=== PATIENT | male | born 1955 | race Caucasian/White ===

== ENCOUNTER 2019-10-24 20:00 | Outpatient (CLI) | payer OTHER, SELFPAY | END 2019-10-24 20:01 | disposition home or self-care (01) | LOC: SLEEP 10-25 09:30 | PROVIDERS: Family Provider Family Medicine; PCP Family Medicine; Visit Provider Psychiatry & Neurology Psychiatry | DX: G47.33 Obstructive sleep apnea (adult) (pediatric) (principal) | CPT/HCPCS: 95810; 95811 ==

== ENCOUNTER 2020-04-13 09:40 | Emergency (ER) | payer OTHER, SELFPAY ==
[2020-04-13 10:06] VITALS: BP 127/66; PULSE 56; RESP 20; TEMP 36.7; O2SAT 94; BMI 38.4
--- NOTE | 2020-04-13 10:09 | PC.NURSE ---
Patient provided with urine cup at this time. Educated on how to properly collected clean catch urine.
[2020-04-13 10:52] VITALS: BP 136/84; PULSE 58; RESP 18; O2SAT 95
[2020-04-13 10:53] LABS: Add Urine Microscopic? NO
[2020-04-13 10:56] LABS: Bilirubin Urine Neg (NEGATIVE); Blood Urine Neg (Negative); Glucose Urine UA Norm (Normal); Ketones Urine Negative (Negative); Leukocyte Esterase Urine Negative (Negative); Nitrate Urine Negative (Negative); Protein Urine Neg (Negative); Specific Gravity, Urine 1.005 (1.005-1.030); Urine Appearance Clear (CLEAR); Urine Color Yellow (Yellow); Urobilinogen Urine Norm (Negative); pH Urine 7 (5-7)
[2020-04-13 11:17] LABS: Basophils # 0.1 10^3/uL (0.0-0.1); Basophils % 1.1 %; Eosinophils # 0.7 10^3/uL (0.0-0.8); Eosinophils % 7.5 %; Hematocrit 45.4 % (42.0-52.0); Hemoglobin 14.7 g/dL (11.7-16.6); Lymphocytes # 2.1 10^3/uL (0.8-4.8); Lymphocytes % 22.9 %; Mean Corpuscular HGB Conc 32.4 g/dL (30.0-36.0); Mean Corpuscular Hemoglobin 29.5 pg (28.0-34.0); Mean Corpuscular Volume 91.2 fL (80-94); Mean Platelet Volume 9.9 fL (7.4-10.4); Monocytes # 0.8 10^3/uL (0.2-0.9); Monocytes % 8.7 %; Neutrophils # 5.55 10^3/uL (1.8-7.7); Neutrophils % 59.4 %; Nucleated Red Blood Cells % 0 %; Platelet Count 323 10^3/cmm (130-400); Red Blood Count 4.98 10^6/uL (4.1-5.3); Red Cell Distribution Width 13.2 % (12.1-15.1); White Blood Count 9.3 10^3/uL (4.0-10.0)
[2020-04-13 11:29] LABS: Alanine Aminotransferase 17 U/L (0-41); Albumin Level 4.1 g/dL (3.5-5.2); Alkaline Phosphatase 103 IU/L (40-130); Anion Gap 12.7 (5-19); Aspartate Amino Transferase 14 U/L (0-40); Blood Urea Nitrogen 13 mg/dL (8-23); Calcium 9.9 mg/dL (8.5-10.5); Carbon Dioxide 29 mmol/L (22-29); Chloride 98 mmol/L (98-107); Creatinine Clr Calc Pharmacy 136.8791; Globulin 3.6 g/dL (1.3-4.6); Glomerular Filtration Rate 113.9 mL/min (90-130); Glucose 86 mg/dL (65-115); Osmolality Calculated 275 mOsm/kg (285-295); Potassium 4.7 mmol/L (3.5-5.1); Sodium 135 mmol/L (136-145); Total Bilirubin 0.2 mg/dL (0.15-1.2); Total Protein 7.7 g/dL (6.6-8.7)
--- NOTE | 2020-04-13 11:53 | W.ED.MALEGU ---
HPI - Male Genitourinary General: Chief complaint: Urogenital-Male Stated complaint: groin pain Time Seen by Provider: 04/13/20 11:43 History of Present Illness: HPI Narrative: Patient complains about testicular pain for the last 10 days intermittent has some polyuria denies any unprotected sex are other symptoms no fever chills burning. Complaint: testicle pain Onset (ago): day(s) Duration: intermittent Location: right testicle and left testicle Severity: mild Quality: aching Relieving factors: none Exacerbating factors: none Associated symptoms: Reports no associated symptoms; Deny nausea or vomiting Review of Systems Const: Denies: fever(s), chills or body aches Eyes: Denies: change in vision or blurry vision ENMT: Denies: throat pain or nasal congestion Card: Denies: chest pain or dyspnea on exertion Resp: Denies: dyspnea, productive cough or non-productive cough GI: Denies: abdominal pain, nausea or vomiting : Reports: testicular pain; Denies: difficulty urinating Musc: Denies: extremity pain Skin/Breast: Denies: rash Neuro: Denies: headache(s) Psych: Denies: anxiety or depression Mark/Lymph: Denies: easy bruising PFSH ED PFSH: Medical History Atherosclerotic heart disease Congestive heart failure Diabetes type 2, controlled KANG (dyspnea on exertion) Dyslipidemia (high LDL; low HDL) Hypertension Smoking addiction 5 PPD for 35 years staarted cutting back 1 year ago- now 1PPD Surgical History H/O heart artery stent History of cholecystectomy Family History Other CAD (coronary artery disease) Diabetes Family history of premature coronary artery disease Hyperlipidemia Hypertension Social History Smoking and tobacco status: current every day smoker cigarettes Packs smoked per day: 1 Alcohol intake: never Physical Exam Const: COMMON NORMALS: no acute distress, average body habitus and patient oriented x3 HENMT: COMMON NORMALS: normocephalic HEAD & SCALP: normal to inspection and normocephalic FACE & SINUS: normal facial exam Eye: COMMON NORMALS: conjunctivae normal GENERAL EYE: appearance normal, both eyes and all related structures CONJUNCTIVA: Yes conjunctivae normal Neck/C-Spine: COMMON NORMALS: no JVD Chest: COMMONS NORMALS: normal inspection of the chest Resp: COMMON NORMALS: normal respiratory effort and clear to auscultation bilaterally AUSCULTATION: clear to auscultation bilaterally Cardio: COMMON NORMALS: no JVD, regular rate and regular rhythm RATE: regular rate RHYTHM: regular rhythm GI: COMMON NORMALS: Normal to inspection, nondistended, normoactive bowel sounds present : COMMON NORMALS: Yes no CVA tenderness BLADDER/KIDNEY EXAM: Yes no CVA tenderness PENIS: normal penis SCROTUM: Yes testes descended bilaterally, Yes Scrotal tenderness present (Bilateral), No erythematous and No scrotal swelling TESTES: Yes testicular lie normal Back/Pelvis: COMMON NORMALS: no CVA tenderness Extremity: COMMON NORMALS: normal to inspection and full ROM Neuro: COMMON NORMALS: patient oriented x3 Course Vital Signs: Vital signs: Vital Signs Temperature 98.1 F 04/13/20 10:06 Pulse Rate 58 L 04/13/20 10:52 Respiratory Rate 18 04/13/20 10:52 Blood Pressure 136/84 04/13/20 10:52 Pulse Oximetry 95 04/13/20 10:52 MDM - Male Lab Data: Labs: Lab Results 04/13/20 04/13/20 04/13/20 Range/Units 10:36 10:55 10:55 WBC 9.3 (4.0-10.0) 10^3/ uL RBC 4.98 (4.1-5.3) 10^6/u L Hgb 14.7 (11.7-16.6) g/dL Hct 45.4 (42.0-52.0) % MCV 91.2 (80-94) fL MCH 29.5 (28.0-34.0) pg MCHC 32.4 (30.0-36.0) g/dL RDW 13.2 (12.1-15.1) % Plt Count 323 (130-400) 10^3/c mm MPV 9.9 (7.4-10.4) fL Neut % (Auto) 59.4 % Lymph % (Auto) 22.9 % Dewitt % (Auto) 8.7 % Eos % (Auto) 7.5 % Baso % (Auto) 1.1 % Neut # (Auto) 5.55 (1.8-7.7) 10^3/u L Lymph # (Auto) 2.1 (0.8-4.8) 10^3/u L Dewitt # (Auto) 0.8 (0.2-0.9) 10^3/u L Eos # (Auto) 0.7 (0.0-0.8) 10^3/u L Baso # (Auto) 0.1 (0.0-0.1) 10^3/u L Nucleated RBC % (a uto) 0 % Nucleated RBCs # 0.0 /100WBC Sodium 135 L (136-145) mmol/L Potassium 4.7 (3.5-5.1) mmol/L Chloride 98 (98-107) mmol/L Carbon Dioxide 29 (22-29) mmol/L Anion Gap 12.7 (5-19) BUN 13 (8-23) mg/dL Creatinine 0.7 (0.7-1.2) mg/dL GFR Calculation 113.9 (90-130) mL/min Glucose 86 (65-115) mg/dL Calculated Osmolal ity 275 L (285-295) mOsm/k g Calcium 9.9 (8.5-10.5) mg/dL Total Bilirubin 0.2 (0.15-1.2) mg/dL AST 14 (0-40) U/L ALT 17 (0-41) U/L Alkaline Phosphata se 103 (40-130) IU/L Total Protein 7.7 (6.6-8.7) g/dL Albumin 4.1 (3.5-5.2) g/dL Globulin 3.6 (1.3-4.6) g/dL Urine Color Yellow (Yellow) Urine Appearance Clear (CLEAR) Urine pH 7 (5-7) Ur Specific Gravit y 1.005 (1.005-1.030) Urine Protein Neg (Negative) Urine Glucose (UA) Norm (Normal) Urine Ketones Negative (Negative) Urine Blood Neg (Negative) Urine Nitrate Negative (Negative) Urine Bilirubin Neg (NEGATIVE) Urine Urobilinogen Norm (Negative) mg/dL Ur Leukocyte Britta ase Negative (Negative) Discharge Plan Discharge Patient Disposition: Home Clinical Impression: Acute epididymitis Condition: Stable Prescriptions: New levofloxacin 750 mg tablet 750 mg PO DAILY 7 Days Qty: 7 RF: 0 tramadol 50 mg tablet 50 mg PO TID PRN (Reason: pain) Qty: 10 RF: 0 No Action hydroxyzine HCl 10 mg tablet 10 mg PO TID PRNRF: 0 modafinil 200 mg tablet 200 mg PO QAM RF: 0 amlodipine 10 mg tablet 10 mg PO QDAY RF: 0 glipizide 5 mg tablet 5 mg PO BID RF: 0 hydrocodone-acetaminophen 10-325 mg tablet 1 tab PO Q4H PRNRF: 0 citalopram 20 mg tablet 20 mg PO QDAY RF: 0 hydrochlorothiazide 25 mg tablet 25 mg PO QAM RF: 0 hydralazine 10 mg tablet 10 mg PO BID RF: 0 isosorbide mononitrate 60 mg tablet extended release 24 hr 60 mg PO QAM RF: 0 metoprolol succinate 100 mg tablet extended release 24 hr 100 mg PO BID RF: 0 metformin 1,000 mg tablet 1,000 mg PO BID RF: 0 prasugrel 10 mg tablet 10 mg PO DAILY 30 Days Qty: 30 RF: 5 ezetimibe 10 mg tablet 10 mg PO DAILY 30 Days Qty: 30 RF: 5 losartan 50 mg tablet 50 mg PO DAILY 30 Days Qty: 90 RF: 5 Referrals: Salbador Mon [Primary Care Provider] - Discharge Diet: Usual diet Discharge Activity: Resume usual activity Patient Instructions: Epididymitis (ED) Activity Restrictions/Additional Instructions: Follow-up with medical provider as directed. Take medications as prescribed. Return to the ER or your medical provider if condition worsens. Please read and understand discharge instructions. If any questions ask please. 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
[2020-04-13 12:16] VITALS: BP 143/75; PULSE 53; RESP 20; O2SAT 94
== END 2020-04-13 12:16 | disposition home or self-care (01) ==
PROVIDERS: Emergency Provider Nurse Practitioner Family; PCP Family Medicine
DX: N45.1 Epididymitis (principal); Z79.84 Long term (current) use of oral hypoglycemic drugs; I11.0 Hypertensive heart disease with heart failure; I50.9 Heart failure, unspecified; E11.9 Type 2 diabetes mellitus without complications; E78.5 Hyperlipidemia, unspecified; F17.210 Nicotine dependence, cigarettes, uncomplicated
CPT/HCPCS: 12345; 36415; 80053; 81003; 85025; 99282

== ENCOUNTER → 2020-06-26 08:15 | Outpatient (BNVA) | payer OTHER, SELFPAY | PROVIDERS: PCP Family Medicine; Visit Provider Internal Medicine Cardiovascular Disease | DX: E78.5 Hyperlipidemia, unspecified (principal) | CPT/HCPCS: 80061 ==

== ENCOUNTER 2020-12-31 07:56 | Outpatient (CLI) | payer OTHER, SELFPAY ==
[2020-12-31 08:29] VITALS: BMI 41.3
--- NOTE | 2020-12-31 08:35 | NMCV_ITS ---
NM viral perf SPECT r/s* [id number] Jonn Fernandes Age: 65 Gender: M : 1955 Exam Date: 12/31/2020 09:42 Ordering Phys: Linda Jade MD ([email or web address]) Technologist: ALBERTO Torres Exam Location: [facility] Indications: CHEST PAIN STRESS TEST [facility] IMAGE PROTOCOL Rest/Stress 1 Lexiscan Day Radiopharmaceutical Dose (mCi) Administration Site Administered by Rest: Tc-99m 9.4 IV ALBERTO Pool Sestamibi Stress:Tc-99m 27.5 IV ALBERTO Pool Sestamibi Rest: 31-Dec-2020 60 Discovery 630 Stress: 31-Dec-2020 30 Discovery 630 0.4mg Lexiscan. Supine position only as patient was unable to lay prone. SPECT RESULTS Technical Quality: Good Raw Data Analysis: Soft tissue attenuation Image Corrections: No attenuation or motion correction applied Summed Stress Score: 5 Summed Rest Score: 1 Summed Difference Score: 5 PERFUSION FINDINGS Small to moderate area of moderately decreased tracer uptake in the basal and mid inferior and apical lateral regions. Some reversibility was noted in all these regions at rest. FUNCTIONAL RESULTS (calculated via Gated SPECT) Stress Image LV EF (%): 68 Stress EDV (mL):133 TID: 1.08 Stress ESV (mL):42 FUNCTIONAL FINDINGS: The segmental wall motion analysis revealing no gross wall motion abnormalities. IMPRESSIONS 1. Myocardial perfusion imaging revealing a small to moderate area of moderately decreased tracer uptake in the inferior wall and lateral regions with some reversibility, suggesting myocardial scarring with ischemia in the distribution of the right coronary artery/circumflex artery 2. Normal LV ejection fraction of 68%. 3. LV wall motion analysis revealing no gross wall motion abnormalities 4. The LV volume, upper limit of normal. No similar previous studies are available for comparison Dr Linda Jade MD FACC (Electronically Signed) Final Date: 01 January 2021 08:49 S
--- NOTE | 2020-12-31 08:35 | ECG_ITS ---
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 Interpretive Statements NAME OF STUDY: LEXISCAN SESTAMIBI STRESS TEST INDICATION: Chest Pain PROCEDURE: At the baseline, the EKG revealed normal sinus rhythm with some nonspecific T wave changes. The baseline blood pressure was 168/90 mm Hg with a heart rate of 62 beats/min. Lexiscan was infused over a period of 20 seconds. A total of 0.4 milligrams of Lexiscan was infused. The stress phase was continued for a total of 5 minutes. Heart rate at the end of the stress phase was 70 with a blood pressure 191/88. The EKG at the peak infusion revealed no significant changes. Sestamibi was injected 20 seconds after the Lexiscan infusion. Blood pressure at the end of the recovery phase was 176/88 with a heart rate of 69 per minute. CONCLUSION: 1. No significant EKG changes with the LexiScan infusion 2. No LexiScan induced chest pain or cardiac arrhythmia 3. Normal blood pressure and heart rate response 4. Sestamibi/sestamibi perfusion scan pending; see separate report. Electronically Signed On 01-03-2021 22:21:01 CDT by Linda Jade M.D. [email or web address]
[2020-12-31] MEDS: regadenoson 0.4 Mg/5 ml Syringe IVP (11:13)
[2020-12-31 11:24] VITALS: BP 176/88; PULSE 69
== END 2020-12-31 07:57 | disposition home or self-care (01) ==
LOC: CDL 07:56
PROVIDERS: PCP Family Medicine; Visit Provider Internal Medicine Cardiovascular Disease
DX: R07.9 Chest pain, unspecified (principal)
CPT/HCPCS: 78452; 93017; A9500; J2785

== ENCOUNTER → 2021-01-18 10:47 | Outpatient (BNVA) | payer OTHER, SELFPAY | PROVIDERS: PCP Family Medicine; Visit Provider Internal Medicine Cardiovascular Disease | DX: Z01.812 Encounter for preprocedural laboratory examination (principal); Z20.822 Contact with and (suspected) exposure to COVID-19 | CPT/HCPCS: 87635 ==

== ENCOUNTER 2021-01-23 06:01 | Day surgery (SDC) | payer OTHER, SELFPAY ==
[2021-01-18 10:56] LABS: Basophils # 0.1 10^3/uL (0.0-0.1); Basophils % 1.1 %; Eosinophils # 0.5 10^3/uL (0.0-0.8); Eosinophils % 5.3 %; Hematocrit 43.8 % (42.0-52.0); Hemoglobin 14.8 g/dL (11.7-16.6); Lymphocytes % 21.3 %; Mean Corpuscular HGB Conc 33.8 g/dL (30.0-36.0); Mean Corpuscular Volume 91.8 fL (80-94); Mean Platelet Volume 9.8 fL (7.4-10.4); Monocytes # 0.7 10^3/uL (0.2-0.9); Monocytes % 7.6 %; Neutrophils # 5.98 10^3/uL (1.8-7.7); Neutrophils % 64.2 %; Nucleated Red Blood Cells % 0 %; Platelet Count 304 10^3/cmm (130-400); Red Blood Count 4.77 10^6/uL (4.1-5.3); Red Cell Distribution Width 12.2 % (12.1-15.1); White Blood Count 9.3 10^3/uL (4.0-10.0)
[2021-01-18 11:10] LABS: INR 0.93 (0.8-1.2)
[2021-01-18 11:13] LABS: Anion Gap 15.4 (5-19); Blood Urea Nitrogen 12 mg/dL (8-23); Calcium 8.9 mg/dL (8.5-10.5); Carbon Dioxide 27 mmol/L (22-29); Chloride 97 mmol/L (98-107); Glomerular Filtration Rate 97.3 mL/min (90-130); Glucose 169 mg/dL (65-115); Osmolality Calculated 284 mOsm/kg (285-295); Potassium 4.4 mmol/L (3.5-5.1); Sodium 135 mmol/L (136-145)
[2021-01-23] VITALS (41 sets, daily range): BP systolic 104–184; BP diastolic 50–94; PULSE 58–77; RESP 14–30; TEMP 36.6–37; O2SAT 86–96; BMI 40.8
--- NOTE | 2021-01-23 06:00 | XACV_ITS ---
Exam Room: [facility] Ht: 175 cm Wt: 126 kg BSA: 2.53 m2 Gender: Male : 1955 Any Known Allergies: Other Exam Priority: Routine Procedure(s): Procedure Description: Diagnostic procedure Procedure Description: PCI procedure Procedure Description: Left Heart Catheterization Procedure Description: Drug Eluting Coronary Stent Procedure Description: PTCA Diagnostic Cath Status: Elective Diagnostic Findings * No disease noted in the Left Main, Left Anterior Descending, Right, or Circumflex coronary arteries. * Coronary angiography shows right dominance. * The left main is a medium caliber short vessel with no significant stenotic lesions. Minimal plaques are noted in the distal segment of the artery. * The circumflex artery was found to be extensively stented. The proximal stented segment was found to have around 50% in-stent narrowing. The second obtuse marginal branch artery, before its bifurcation was found to have around 70% in-stent narrowing. The first obtuse marginal artery was found to have around 70% ostial lesion, appears to be jailed. The artery is radially small caliber vessel. Grade 2 [id number] collaterals were noted filling of the PLV branch of the right coronary artery. The AV groove branch, distal to the third obtuse marginal artery was found to have 50 to 60% ostial narrowing, possibly jailed by the stent extending from mid circumflex to the obtuse marginal artery.. * The left anterior descending artery appears to be a medium caliber vessel which appears to wrap around the LV apex. The mid LAD was found to have moderate diffuse disease of around 40 to 50%. The first and second diagonal branches were found to have mild to moderate diffuse disease proximally. The diagonal branches are relatively of small caliber. * The right coronary artery is a medium caliber vessel which appears to have extensive stenting up to the distal bifurcation. The proximal to mid segment of the PLV branch of the right coronary artery also was found to be stented. There was a high-grade around 99% stenosis in the mid stented segment of the right coronary artery. Moderate diffuse in-stent narrowing was noted at the distal segment. The PLV branch was found to be totally occluded proximally in the stented region. The PDA branch was found to be a relatively small caliber vessel with diffuse disease.. PCI Status: Urgent PCI Indication: New Onset Angina <= 2 months Interventional Findings * Procedure details: Procedure details: We engaged RCA with a JR4 guide catheter. IV heparin was administered to maintain an ACT above 250 seconds. A 0.014 run-through guidewire was used to cross the stenosis and was placed in PLV branch. 2.25 x 12 mm semicompliant balloon was used to predilate the stenosis in the distal RCA/ PLV branch. This was followed by predilating the mid RCA stenosis with the same balloon. We then placed a 2.25x22 mm resolute nader ANGELA from distal RCA to PLV branch. Distal to the stent flow was still compromised. We followed this with placement of 3.0 x 26 mm resolute Nader drug-eluting stent in mid RCA. We postdilated the stent with a 3.7r50inCC balloon. We then dilated the occluded PLV branch with a 2.0 balloon and established flow. At this time final angiogram was performed that showed excellent stent expansion, REYNA-3 flow and no residual stenosis. Guidewire and guide catheterWe then turned out attention to OM 3 severe stenosis. We engaged the left main with a XB 3.5 guide catheter. This was followed by crossing OM 3 lesion with a runthrough guidewire. We then performed predilation of the stenosis with a 2.82k87ph semicompliant balloon. This was followed by placement of a 2.5x18mm resolute nader stent which showed excellent stent expansion, no residual stenosis and REYNA 3 flow. Guidewire and guide catheter were removed. 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 Conclusions 1. This is a 65-year-old white male with a history of coronary disease, status post multiple PCI, high blood pressure, dyslipidemia and type 2 diabetes, presenting with recurrent episodes of chest pains. He had a myocardial perfusion imaging which revealed moderate area of moderately decreased tracer uptake in the distribution of the right coronary artery and circumflex artery with significant reversibility.He Is awaiting knee surgery. In view of the patient's symptoms and the abnormal objective findings, in order to further evaluate his coronary status, a cardiac catheterization was recommended. Patient underwent left heart catheterization with left and right coronary angiogram and LV angiogram today. The findings are as follows.. 2. 1. Short left main with minimal plaques. #2 left and descending artery is a medium sized elongated vessel which wraps around the LV apex. Mild to moderate diffuse disease in the left anterior descending artery. Circumflex artery was found to have extensive stenting in the proximal to mid segments. 50% in-stent narrowing in the proximal segment of the artery. Around 60 to 70% in-stent stenosis was noted in the proximal segment of the third obtuse marginal artery, proximally. Right coronary artery was found extensive stenting with a subtotal in-stent stenosis in the mid RCA. PLV branch of the right coronary artery was found to have a total occlusion in the proximal stented segment . Normal LV ejection fraction 55%. LVEDP of 23 mmHg. Moderate hypokinesia in the basal and mid inferior wall segment. I reviewed and discussed the cardiac catheterization data with the Dr. Mitchell. It was thought to be appropriate to consider PCI of the RCA lesions.consider PCI of the OM [address] Mitchell took over further management of this patient at this point. 3. Patient underwent successful revascularization of mid and distal RCA. 4. Successful revascularization of the OM 3. Recommendations * Apsirin and Prasugrel for atleast 1 year. * Transfer to [facility]. * High intensity statin therapy. * Outpatient cardiology follow up. Interventional RX Recommendation: PCI w/o planned CABG Diagnostic RX Recommendation: PCI w/o planned CABG Anticoagulation: Heparin Ventriculography Ejection Fraction: 55.0 % LV EDP: 23 mmHg Left Ventriculography Findings: * The LV gram was performed in the COBOS projection. The LV gram was of suboptimal quality because of some technical problems. Moderate hypokinesia was noted in the basal and the mid inferior wall segments. Overall ejection fraction 55%. No filling defects are noted. LVEDP was 23 mmHg prior to the LV angiogram. It went up to 28 mmHg, following the LV angiogram. Pressures Phase:Rest AO : 120 / 69 ( 91 ) @ 6:33:00 AM LV : 122 / 12 / 23 @ 6:32:00 AM 124 / 16 / 31 @ 6:33:00 AM 124 / 16 / 32 @ 6:33:00 AM 124 / 14 / 31 @ 6:33:00 AM Valves Phase:DefaultPhase AV : 4.0 @ 8:53:59 AM AV Mean Gradient: 16.0 @ 8:53:59 AM Clinical Evaluation EBL: 5mL-10mL Procedural Details Procedure Consent Obtained. Admit Source: Out Patient. Pre-Procedure Time Out. Identified patient by full name and date of as verbalized by the patient/guarantor. Does the consent match the physician's order: Yes. Accurate & Complete Informed Consent: Yes. Inpatient/Outpatient History & Physical on Chart: Yes. If H&P is completed, is and addenduem needed: Yes; If yes, is the addendum complete: N/A. Visualize and Verify Site with Patient/Guarantor: N/A. Relevant Radiology Images available: N/A. Pre-op teaching completed and patient verbalized understanding. The risks, benefits, and alternatives of sedation and/or procedure were discussed by physician. The patient agrees to continue. Procedure started. Correct patient, site and procedure confirmed by cath team. PERRLA. Strong, equal hand yeast cake cutter bilaterally. Lungs clear x 5 lobes. IV Site on Arrival: 20 gauge in the left forearm. Pre Procedural Pulses: right dorsalis pedis was 2+. Pre Procedural Pulses: left dorsalis pedis was 1+. Pre Procedural Pulses: bilateral posterior tibial was 2+. Pre Procedural Pulses: bilateral radial was 3+. Oxygen started at 2liters/min via nasal canula. bilateral groins was prepped with chloroprep then draped in the usual sterile fashion. right radial was prepped with chloroprep then draped in the usual sterile fashion. Physician notified. Baseline sample Acquired. HR: 62 BPM. Physician arrived. [facility] Clinical Fraility Score: 4: Vulnerable. Rfid Analyst Indications: Worsening Angina. Chest Pain Symptom Assessment: Typical Angina Symptoms. Cardiovascular Instability: No,. Physician scrubbed in. Immediate Pre-Procedure Time Out. Correct Patient: Yes; Correct Procedure: Yes; Correct Site: Yes; Correct Patient Position: Yes; Correct Supplies: Yes; Dried Flammable Prep: Yes; Blood Products Available: N/A;. Lidocaine 1% infiltrated to the right radial. Arterial access obtained. A 5 [place] Marcus catheter in over wire. Multiple views taken of left coronary artery. Catheter redirected to the RCA. Multiple views taken of right coronary artery. Dr. Mitchell notified. Catheter out. A 5 [place] Angled Pig catheter in over wire. EDP Sample taken: LV Off; HR: 66 BPM; SpO2: 95%. LV gram performed in COBOS @ 10 mL/second for a total of 30 mL. EDP Sample taken: LV 124/16,31; HR: 65 BPM; SpO2: 94%. Pullback taken: LV 124/14,31; AO 120/69(91); Mean: 16mmHg, Peak to Peak: 4mmHg, SEP: 7sec/min; HR: 65 BPM; SpO2: 95%. Catheter out. Side port of sheath attached to Normal Saline flush at KVO to maintain patency. Dr. Mitchell arrived to perform intervention. Tried to notify son. Number would not go through. Dr. Jade talked with patient. scrubbed in to perform intervention. 6 b[place] JL 4 SH guide catheter was inserted over the wire. Runthrough guidewire was advanced through the guide catheter to lesion in the mid RCA. Inflation number : 1 A AB TREK 2.25X12 RX BALLOON was prepped and advanced across the Mid RCA , then inflated to 12 MARIBELL for 0:25 seconds. Inflation number: 2 The AB TREK 2.25X12 RX BALLOON was reinflated across the Mid RCA, to 12 MARIBELL for 0:17 seconds. Inflation number: 3 The AB TREK 2.25X12 RX BALLOON was reinflated across the Mid RCA, to 14 MARIBELL for 0:23 seconds. Inflation number: 4 The AB TREK 2.25X12 RX BALLOON was reinflated across the Mid RCA, to 14 MARIBELL for 0:13 seconds. checking results. Qian Noel, RN scrubbed in for Cony. Inflation number: 5 The AB TREK 2.25X12 RX BALLOON was reinflated across the Mid RCA, to 14 MARIBELL for 0:17 seconds. Balloon out. Inflation Number : 1 Alessandra LOMAST R NADER 2.25X22 ANGELA -Lot Number# [id number] exp date: 10-03-2021 was prepped and advanced across the Dist RCA. The stent was deployed at 14 MARIBELL for 0:38 seconds. Stent balloon out over wire. Results checked. Inflation Number : 6 A MDT R NADER 3.0X26 ANGELA -Lot Number# [id number] exp date: 08-23-2022 was prepped and advanced across the Mid RCA. The stent was deployed at 16 MARIBELL for 0:37 seconds. Inflation number: 7 The stent balloon was then re-inflated across the Mid RCA to 16 MARIBELL for 0:21 seconds. Stent balloon out over wire. Results checked. Inflation number : 8 A AB TREK 2.25X12 RX BALLOON was prepped and advanced across the Mid RCA , then inflated to 12 MARIBELL for 0:21 seconds. Balloon out. Inflation number : 9 A AB MINI TREK 2.00X12 RX BALLOON was prepped and advanced across the Mid RCA , then inflated to 12 MARIBELL for 0:24 seconds. Inflation number: 10 The AB MINI TREK 2.00X12 RX BALLOON was reinflated across the Mid RCA, to 12 MARIBELL for 0:40 seconds. Inflation number: 11 The AB MINI TREK 2.00X12 RX BALLOON was reinflated across the Mid RCA, to 12 MARIBELL for 0:32 seconds. Balloon out. Results checked. Inflation number : 12 A MDT NC EUPHORA RX 3.50K42HZ BALLOON was prepped and advanced across the Mid RCA , then inflated to 18 MARIBELL for 0:27 seconds. Inflation number: 13 The MDT NC EUPHORA RX 3.52U37AG BALLOON was reinflated across the Mid RCA, to 18 MARIBELL for 0:16 seconds. Inflation number: 14 The MDT NC EUPHORA RX 3.73V54RP BALLOON was reinflated across the Mid RCA, to 18 MARIBELL for 0:16 seconds. Inflation number: 15 The MDT NC EUPHORA RX 3.76F50LJ BALLOON was reinflated across the Mid RCA, to 18 MARIBELL for 0:16 seconds. Inflation number: 16 The MDT NC EUPHORA RX 3.23Z54UA BALLOON was reinflated across the Dist RCA, to 8 MARIBELL for 0:17 seconds. wire pulled back. Balloon out. Wire out. Guide catheter out. 6 bots[place]an XB 3.5 guide catheter was inserted over the wire. ACT drawn. Results 157 seconds. Therapeutic limits - pre-heparin administration 90-150 seconds and monitoring heparin during a vascular procedure >250 seconds. Runthrough guidewire was advanced through the guide catheter to lesion in the distal Circ. Inflation number : 1 A AB TREK 2.25X12 RX BALLOON was prepped and advanced across the Dist CX , then inflated to 12 MARIBELL for 0:16 seconds. Inflation number: 2 The AB TREK 2.25X12 RX BALLOON was reinflated across the Dist CX, to 12 MARIBELL for 0:12 seconds. Inflation number: 3 The AB TREK 2.25X12 RX BALLOON was reinflated across the Dist CX, to 12 MARIBELL for 0:17 seconds. Inflation number: 4 The AB TREK 2.25X12 RX BALLOON was reinflated across the Dist CX, to 12 MARIBELL for 0:10 seconds. Balloon out. Inflation Number : 1 A MARILY Victor NADER 2.5X18 ANGELA -Lot Number# [id number] exp date:10-31-2021 was prepped and advanced across the Dist CX1. The stent was deployed at 18 MARIBELL for 0:28 seconds. Stent balloon and wire out. Results checked. wire out. Guide catheter out. TR band placed. Hemostasis obtained. Post Procedure: Pulses reassessed and unchanged. PERRLA. Strong, equal hand yeast cake cutter bilaterally. No VTE prophylaxis required. Medication's Wasted: Lidocaine 1% = 18 mL. Medication's Wasted: Nitro = 49.6 mg. Total IV fluids: 300 mL. Contrast type used: Visipaque 320 mgI/mL, 500 mL bottle. Contrast Material : Visipaque 385 ml. PCI Indication:Chest pain, abnormal stress test, severe RCA and LCx stenosis. Post-op diagnosis: Severe RCA and LCx stenosis. Complications: none. Estimated blood loss: 5mL-10mL. Procedure completed. Patient transferred by wheelchair to 1st floor. A TR Band was successful obtaining hemostatsis at the Right Radial artery insertion site. Vital chart was stopped. Access Site Site: Right Radial artery Sheath Size: 6 Fr Hemostasis Method: TR Band Hemostasis Success: Successful Procedure Medications Start: 7:09 AM Stop: 7:09 AM Medication: Versed Amount: 2 mg Route: I.V. Start: 7:10 AM Stop: 7:10 AM Medication: Fentanyl Amount: 25 mcg Route: I.V. Start: 7:20 AM Stop: 7:20 AM Medication: Verapamil Amount: 5 mg Route: I.A. Start: 7:21 AM Stop: 7:21 AM Medication: Nitrogylcerin Amount: 200 mcg Route: I.A. Start: 7:23 AM Stop: 7:23 AM Medication: Heparin Amount: 5000 units Route: I.V. Start: 7:23 AM Stop: 7:23 AM Medication: Fentanyl Amount: 25 mcg Route: I.V. Start: 7:39 AM Stop: 7:39 AM Medication: Fentanyl Amount: 25 mcg Route: I.V. Start: 7:44 AM Stop: 7:44 AM Medication: Heparin Amount: 5000 units Route: I.V. Start: 7:53 AM Stop: 7:53 AM Medication: Fentanyl Amount: 25 mcg Route: I.V. Start: 7:59 AM Stop: 7:59 AM Medication: Heparin Amount: 2000 units Route: I.V. Start: 8:32 AM Stop: 8:32 AM Medication: Nitrogylcerin Amount: 200 mcg Route: I.C. Start: 8:39 AM Stop: 8:39 AM Medication: Heparin Amount: 4000 units Route: I.V. Start: 8:40 AM Stop: 8:40 AM Medication: Versed Amount: 1 mg Route: I.V. Start: 8:46 AM Stop: 8:46 AM Medication: Versed Amount: 1 mg Route: I.V. I, the attending physician, have reviewed and verified all procedure medications. Yes, all medications given per verbal order History/Risk Factors Hypertension: Yes Dyslipidemia: Yes Tobacco Use: Current/Recent(w/in 1 year) Prior Interventions PCI: Yes Report Signatures Interventional Workflow Finalized by Rick Mitchell MD on 02/06/2021 05:25 PM Diagnostic Workflow Finalized by Dr Linda Jade MD [facility] on 01/23/2021 08:39 PM
[2021-01-23] MEDS: diphenhydrAMINE 50 mg Capsule PO (06:18)
--- NOTE | 2021-01-23 06:56 | P.HP_ITS ---
Providers/Chief Complaint Admitting Physician: DELFINO Jade MD Primary Care Provider: Vi Escalante MD Chief Complaint: [facility] History of Present Illness Jonn Fernandes is a 65 year old male with a history of atherosclerotic heart disease, high blood pressure, type 2 diabetes and dyslipidemia, is presenting with complaints of chest pain. He had multiple PCI's in the past involving the right coronary artery and circumflex artery. Most recently, he had angiogram followed by PCI of of the RCA and circumflex artery lesions, in [facility] in October of last year. This patient is scheduled for a knee surgery. Because of his episodes of chest pain, he had a myocardial perfusion imaging. The perfusion imaging revealed areas of ischemia in the distribution of the right coronary artery/circumflex artery. In order to further evaluate his coronary status and risk assessment, a cardiac catheterization was recommended. The patient has some amount of dyspnea on exertion. No orthopnea PND. No fever, chills or cough. No other specific complaints. Review of Systems Narrative: CONSTITUTIONAL: No fever or chills. Has some amount of dyspnea exertion. EYES: No blurring of vision or other visual disturbances lately. ENT: No hoarseness of voice, auditory disturbances or sore throat. CARDIOVASCULAR: As mentioned above. RESPIRATORY: Dyspnea on exertion as mentioned above GASTROINTESTINAL: No hematemesis or melena. GENITOURINARY: No dysuria or hematuria. INTEGUMENTARY: No skin rashes or history of skin cancer. NEURO: No transient ischemic attacks or amaurosis. PSYCHIATRIC: No history of psychosis or major depression. HEMATOLOGIC: No bleeding disorders or significant anemia. ENDOCRINE: Has type 2 diabetes MUSCULOSKELETAL: No recent joint pain or swelling. ALLERGY/IMMUNOLOGY: As mentioned above. Medications/Allergies Home Medications Medication Instructions Recorded Confirmed Last Taken Type amlodipine 10 mg tablet 10 mg PO QDAY 09/29/19 01/23/21 01/22/21 08:00 History glipizide 5 mg tablet 5 mg PO BID 09/29/19 01/23/21 01/22/21 08:00 History hydralazine 10 mg tablet 10 mg PO BID 09/29/19 01/23/21 01/22/21 20:00 History hydrochlorothiazide 25 mg tablet 25 mg PO QAM 09/29/19 01/23/21 01/22/21 08:00 History isosorbide mononitrate 60 mg 60 mg PO QAM 09/29/19 01/23/21 01/22/21 08:00 History tablet,extended release 24 hr modafinil 200 mg tablet 200 mg PO BID 09/29/19 01/23/21 01/22/21 12:00 History losartan 50 mg tablet 50 mg PO DAILY 30 Days #90 tab 11/22/19 01/23/21 Unknown Rx metformin 1,000 mg tablet 1,000 mg PO BID tab 11/22/19 01/23/21 01/21/21 08:00 History metoprolol succinate 100 mg 100 mg PO BID tab 11/22/19 01/23/21 01/22/21 20:00 History tablet,extended release 24 hr ezetimibe 10 mg tablet 10 mg PO DAILY 30 Days #30 tab 03/07/20 01/23/21 01/22/21 20:00 Rx nitroglycerin 0.4 mg sublingual 0.4 mg SUBLINGUAL Q5M PRN 30 Days 09/03/2001/23 Unknown Rx tablet #30 tab prasugrel 10 mg tablet 10 mg PO DAILY #90 tab 12/27/20 01/23/21 01/22/21 08:00 Rx bupropion HCl 75 mg PO BID 01/23/21 01/23/21 01/22/21 20:00 History fluoxetine 10 mg PO DAILY 01/23/21 01/23/21 01/22/21 08:00 History oxycodone-acetaminophen 1 tab PO Q8H PRN 01/23/21 01/23/21 Unknown History ropinirole 1 mg PO DAILY 01/23/21 01/23/21 01/22/21 20:00 History tamsulosin 0.8 mg PO DAILY 01/23/21 01/23/21 01/22/21 20:00 History Allergies Allergy/AdvReac Type Severity Reaction Status Date / Time valsartan [From Keegan] Allergy liver Verified 11/20/20 09:48 failure Vfqrfoh-Bfy-Smf Reductase AdvReac Intermediate muscle pain Verified 11/20/20 09:48 Inhibitor PFSH Acute PFSH: Medical History Atherosclerotic heart disease Chest pain Congestive heart failure Diabetes type 2, controlled KANG (dyspnea on exertion) Dyslipidemia (high LDL; low HDL) Hypertension Smoking addiction 5 PPD for 35 years staarted cutting back 1 year ago- now 1PPD Surgical History H/O heart artery stent History of cholecystectomy Family History Other CAD (coronary artery disease) Diabetes Family history of premature coronary artery disease Hyperlipidemia Hypertension Social History Smoking and tobacco status: current every day smoker cigarettes Packs smoked per day: 1 Alcohol intake: never Vitals/I&O/Wt Last Vital Signs Temp 98.6 F 01/23/21 06:41 Pulse 64 01/23/21 06:41 Resp 14 01/23/21 06:41 BP 128/81 01/23/21 06:41 Pulse Ox 95 01/23/21 06:41 Weight last 48 hrs Weight 277 lb Physical Exam Narrative: EXAM NARRATIVE: GENERAL: The patient is alert and oriented times three. Not in any acute distress. Moderately obese HEENT: No significant pallor, icterus or lymphadenopathy.Oral cavity: There are no mucous membrane lesions. NECK: Trachea appears to be central. No masses noted. No JVD or thyromegaly appreciated. RESPIRATORY: Chest is symmetrical. No intercostals muscle retraction or any accessory muscle activation. There is no chest wall tenderness. Breath sounds are heard bilaterally. No rales or rhonchi heard. No evidence of any consolidation. BREASTS: Deferred. HEART: The heart sounds are normal. No S3 or S4. No significant murmurs. No pericardial rub ABDOMEN: No vessel pulsations or distention. No tenderness. No organomegaly appreciated. Bowel sounds are normally heard. : Deferred. RECTAL: Deferred. LYMPHATIC: No lymphadenopathy noted in the neck or groin. EXTREMITIES: No edema or cyanosis. No clubbing. Peripheral pulses-radial and the ulnar artery pulses are palpable in good volume and amplitude. Pedal pulses are palpable but slightly weak bilaterally MUSCULOSKELETAL: No acute joint deformities or swelling SKIN: There are no significant rashes or ecchymosis NEUROPSYCHIATRIC: The patient is alert and oriented x3. Appears to be in a good mood. No tremors or rigidity noted. Data : 01/18/21 10:45 01/18/21 10:45 Other Labs: Myocardial perfusion imaging on 12/31/2020 1. Myocardial perfusion imaging revealing a small to moderate area of moderately decreased tracer uptake in the inferior wall and lateral regions with some reversibility, suggesting myocardial scarring with ischemia in the distribution of the right coronary artery/circumflex artery 2. Normal LV ejection fraction of 68%. 3. LV wall motion analysis revealing no gross wall motion abnormalities 4. The LV volume, upper limit of normal. No similar previous studies are available for comparison A&P Assessment and plan (1) Chest pain: Based on the myocardial perfusion imaging, the patient has areas of ischemia in the distribution of the right coronary artery/circumflex artery. . In order to further evaluate his coronary status, he requires a cardiac catheterization. The risk of bleeding, hematoma, vascular injury, myocardial infarction, CVA, renal failure and other concomitant complications were explained in detail. Patient understood this well and consented to proceed. Status: Acute Qualifiers: Chest pain type: chest pain due to myocardial ischemia Ischemic chest pain type: stable angina pectoris Qualified Code(s): I20.8 - Other forms of angina pectoris (2) Dyslipidemia (high LDL; low HDL): We will continue on the current medication . Status: Acute (3) Atherosclerotic heart disease: Patient had PCI of the circumflex and right coronary artery before. According to the patient he had a total of 9 stents. His symptoms are fairly stable. Status: Acute Qualifiers: Associated angina: without angina Coronary Disease-Associated Artery/Lesion type: [place] artery [place] vs. transplanted heart: [place] heart Qualified Code(s): I25.10 - Atherosclerotic heart disease of [place] coronary artery without angina pectoris (4) Hypertension: May continue on the current medications. We will try to optimize his antihypertensive medications. Status: Acute Qualifiers: Hypertension type: essential hypertension Qualified Code(s): I10 - Essential (primary) hypertension (5) Diabetes type 2, controlled: Patient is on of this will be continued. The Metformin is on hold Status: Acute Qualifiers: Diabetes mellitus complication status: with hyperglycemia Diabetes mellitus half-way insulin use: without watcher automat long goods use Qualified Code(s): E11.65 - Type 2 diabetes mellitus with hyperglycemia Additional A&P Information Based on the cardiac management decisions will be made. Attestations Medical Necessity Statement*: Patient may require an overnight PCI. Coding Level of Care Code Acute Tape Maker for Sheryl Staples Diagnoses Chest pain I20.8 Chest pain type: chest pain due to myocardial ischemia Ischemic chest pain type: stable angina pectoris Dyslipidemia (high LDL; low HDL) E78.5 Atherosclerotic heart disease I25.10 Associated angina: without angina Coronary Disease-Associated Artery/Lesion type: [place] artery [place] vs. transplanted heart: [place] heart Hypertension I10 Hypertension type: essential hypertension Diabetes type 2, controlled E11.65 Diabetes mellitus complication status: with hyperglycemia Diabetes mellitus half-way insulin use: without watcher automat long goods use
--- NOTE | 2021-01-23 07:05 | W.PM.OPSUD ---
Surgery/Procedure H&P Update DATE OF PROCEDURE: January 23, 2021 DATE H&P PERFORMED: 01/23/21 H&P UPDATE INFORMATION: I have reviewed H&P completed within last 30 days, I have examined patient prior to procedure and No changes to prior documentation PREOP DIAGNOSIS: ASHD/abnormal myocardial perfusion imaging PLANNED PROCEDURE: Operation Date: 01/23/21 07:00 Proposed Procedures p Cardiac Catheterization 18623 R94.39(Left) - Linda Jade MD PATIENT REASSESSED PRIOR TO SEDATION, WITH NO CHANGE NOTED: Yes PHYSICAL EXAM: alert, clear to auscultation bilaterally and regular rate & rhythm AIRWAY EVAL/ANESTHESIA PLAN: normal airway, see other exam findings, ASA II, Monitored Anesthesia, Local Anesthesia, Risks, benefits & alternatives of sedation and/or procedure discussed and Patient agrees to continue as planned
--- NOTE | 2021-01-23 09:15 | PC.NURSE ---
Received pt to room 107 from heart laboratory animal care veterinarian at approximately 0905. Pt has TR band on right wrist. Radial pulse intact. Pt had no c/o pain or discomfort. Pt A&O x4, Resp even and non-labored no distress noted. No needs voiced. Call light in reach. Will continue to monitor.
[2021-01-23] MEDS: amlodipine 10 mg Tablet PO (11:10)
[2021-01-23] MEDS: ezetimibe 10 mg Tablet PO (11:11)
[2021-01-23] MEDS: ropinirole 1 mg Tablet PO (11:11)
[2021-01-23] MEDS: tamsulosin 0.4 mg Capsule 0.8 MG PO (11:11)
[2021-01-23] MEDS: hyDRALAzine 10 mg Tablet PO ×2 (11:12→18:33)
[2021-01-23] MEDS: prasugrel 10 MG Tablet PO (11:12)
[2021-01-23] MEDS: fluoxetine 10 mg Capsule PO (11:12)
[2021-01-23] MEDS: metoprolol succinate ER (24 HR) 100 mg Tablet PO ×2 (11:12→18:33)
[2021-01-23] MEDS: sodium chloride 0.9% 1,000 ML 100 ML IV ×2 (11:13→23:38)
--- NOTE | 2021-01-23 16:54 | PC.NURSE ---
Pts TR band removed from right wrist at approximately 1615. Pts radial pulse intact, Capillary refill less than three seconds. Pt had no c/o pain or discomfort. Will cont to monitor.
[2021-01-23] MEDS: oxyCODONE-APAP 5-325 mg Tablet 1 TAB PO (21:11)
[2021-01-23] MEDS: temazepam 15 mg Capsule PO (21:11)
[2021-01-24 05:15] VITALS: BP 159/87; PULSE 63; RESP 19; TEMP 36.6; O2SAT 90
[2021-01-24] MEDS: isosorbide mononitrate ER 60 mg Tablet PO (05:21)
[2021-01-24] MEDS: hydroCHLOROthiazide 25 mg Tablet PO (05:22)
[2021-01-24 05:43] VITALS: PULSE 63
[2021-01-24 08:00] VITALS: BP 174/77; PULSE 61; RESP 18; TEMP 36.6; O2SAT 62
[2021-01-24] MEDS: ezetimibe 10 mg Tablet PO (08:41)
[2021-01-24] MEDS: amlodipine 10 mg Tablet PO (08:41)
[2021-01-24] MEDS: metoprolol succinate ER (24 HR) 100 mg Tablet PO (08:41)
[2021-01-24] MEDS: fluoxetine 10 mg Capsule PO (08:41)
[2021-01-24] MEDS: ropinirole 1 mg Tablet PO (08:41)
[2021-01-24] MEDS: hyDRALAzine 10 mg Tablet PO (08:41)
[2021-01-24] MEDS: tamsulosin 0.4 mg Capsule 0.8 MG PO (08:41)
[2021-01-24] MEDS: prasugrel 10 MG Tablet PO (08:41)
--- NOTE | 2021-01-24 08:45 | PM.PN ---
Subjective Subjective: Interval history: Patient underwent PCI of the RCA, PLV branch of the RCA and OM 3 yesterday. He had uneventful postprocedure course. No hematoma bleeding from the radial arterial puncture site. His blood pressure has been running slightly high through the night. He is feeling okay with no chest pain or chest tightness. No shortness of breath. No fever or chills. No cough. No other specific complaints. Medications: Reviewed: Yes Medication Review Details: Current Medications Acetaminophen (Acetaminophen 325 Mg Tablet) 650 mg PO Q6H PRN PRN Reason: MILD PAIN Al Hydrox/Mg Hydrox/Simethicone (Blrb-Phb-Nyiahokwz-Arthur 30 Ml Udc) 30 ml PO Q15M PRN PRN Reason: INDIGESTION Alprazolam (Alprazolam 0.25 Mg Tablet) 0.25 mg PO TID PRN PRN Reason: ANXIETY Amlodipine Besylate (Amlodipine 10 Mg Tablet) 10 mg PO DAILY [facility] Last Admin: 01/24/21 08:41 Dose: 10 mg Documented by: Atropine Sulfate (Atropine 1 Mg/Ml Sdv 1 Ml) 0.5 mg IVP PRN PRN PRN Reason: Symptomatic bradycardia Ezetimibe (Ezetimibe 10 Mg Tablet) 10 mg PO DAILY [facility] Last Admin: 01/24/21 08:41 Dose: 10 mg Documented by: Fentanyl (Fentanyl 50 Mcg/Ml Inj 2ml) 50 mcg IVP PRN PRN PRN Reason: Prior to sheath removal Fluoxetine HCl (Fluoxetine 10 Mg Capsule) 10 mg PO DAILY [facility] Last Admin: 01/24/21 08:41 Dose: 10 mg Documented by: Hydralazine HCl (Hydralazine 10 Mg Tablet) 10 mg PO BID [facility] Last Admin: 01/24/21 08:41 Dose: 10 mg Documented by: Hydrochlorothiazide (Hydrochlorothiazide 25 Mg Tablet) [facility] [place] Admin: 01/24/21 05:22 Dose: 25 mg Documented by: Sodium Chloride (Sodium Chloride 0.9%) 1,000 mls @ 100 mls/hr IV .Q10H [facility] Last Infusion: 01/24/21 07:00 Dose: Infused Documented by: Isosorbide Mononitrate (Isosorbide Mononitrate Er 60 Mg Tablet) 60 mg PO [facility] Last Admin: 01/24/21 05:21 Dose: 60 mg Documented by: Magnesium Hydroxide (Magnesium Hydroxide 30 Ml Udc) 30 ml PO DAILY PRN PRN Reason: CONSTIPATION Metformin HCl (Metformin 500 Mg Tablet) 1,000 mg PO BIDWM [facility] Metoprolol Succinate (Metoprolol Succinate Er (24 Hr) 100 Mg Tablet) 100 mg PO BID [facility] Last Admin: 01/24/21 08:41 Dose: 100 mg Documented by: Naloxone HCl (Naloxone 0.4 Mg/Ml Sdv) 0.1 mg IVP Q2M PRN PRN Reason: RESPIRATORY RATE < 8/MIN Nitroglycerin (Nitroglycerin 0.4 Mg Sublingual Tablet) 0.4 mg SUBLINGUAL Q5M PRN PRN Reason: chest pain Nitroglycerin (Nitroglycerin 0.4 Mg Sublingual Tablet) 0.4 mg SUBLINGUAL Q5M PRN PRN Reason: CHEST PAIN Non-Formulary Medication (Bupropion Hcl) 75 mg PO BID [facility] Last Admin: 01/24/21 08:42 Dose: Not Given Documented by: Non-Formulary Medication (Glipizide) 5 mg PO BID [facility] Last Admin: 01/24/21 08:42 Dose: Not Given Documented by: Non-Formulary Medication (Modafinil) 200 mg PO BID [facility] Last Admin: 01/24/21 08:42 Dose: Not Given Documented by: Oxycodone/Acetaminophen (Oxycodone-Apap 5-325 Mg Tablet) 1 tab PO Q8H PRN PRN Reason: Pain Last Admin: 01/23/21 21:11 Dose: 1 tab Documented by: Prasugrel (Prasugrel 10 Mg Tablet) 10 mg PO DAILY [facility] Last Admin: 01/24/21 08:41 Dose: 10 mg Documented by: Ropinirole HCl (Ropinirole 1 Mg Tablet) 1 mg PO DAILY [facility] Last Admin: 01/24/21 08:41 Dose: 1 mg Documented by: Tamsulosin HCl (Tamsulosin 0.4 Mg Capsule) 0.8 mg PO DAILY [facility] Last Admin: 01/24/21 08:41 Dose: 0.8 mg Documented by: Temazepam (Temazepam 15 Mg Capsule) 15 mg PO BEDTIME PRN PRN Reason: INSOMNIA Last Admin: 01/23/21 21:11 Dose: 15 mg Documented by: Vitals/I&O/Wt Last Vital Signs Temp 97.8 F 01/24/21 08:00 Pulse 61 01/24/21 08:00 Resp 18 01/24/21 08:00 BP 174/77 01/24/21 08:00 Pulse Ox 62 L 01/24/21 08:00 01/23/21 01/24/21 01/24/21 22:59 06:59 14:59 Intake Total 1480 / 1840 1360 / 1360 Output Total 1400 / 1400 450 / 1850 200 / 200 Balance 80 / 440 -450 / -10 1160 / 1160 Weight last 48 hrs Weight 277 lb Physical Exam Narrative: EXAM NARRATIVE: GENERAL: The patient is alert and oriented times three. Not in any acute distress. HEENT: No significant pallor, icterus or lymphadenopathy.Oral cavity: There are no mucous membrane lesions. NECK: Trachea appears to be central. No masses noted. No JVD or thyromegaly appreciated. RESPIRATORY: Chest is symmetrical. No intercostals muscle retraction or any accessory muscle activation. There is no chest wall tenderness. Breath sounds are heard bilaterally. No rales or rhonchi heard. No evidence of any consolidation. BREASTS: Deferred. HEART: The heart sounds are normal. No S3 or S4. No significant murmurs. No pericardial rub ABDOMEN: No vessel pulsations or distention. No tenderness. No organomegaly appreciated. Bowel sounds are normally heard. : Deferred. RECTAL: Deferred. LYMPHATIC: No lymphadenopathy noted in the neck or groin. EXTREMITIES: The radial arterial pedal site has no hematoma bleeding. MUSCULOSKELETAL: No acute joint deformities or swelling SKIN: There are no significant rashes or ecchymosis NEUROPSYCHIATRIC: The patient is alert and oriented x3. Appears to be in a good mood. No tremors or rigidity noted. Data : 01/18/21 10:45 01/18/21 10:45 A&P Assessment and plan (1) Chest pain: Patient underwent left heart catheterization with left and right coronary angiogram and LV angiogram yesterday. He was found to have subtotal occlusion of the stented segment of the right coronary artery and the PLB branch of the right coronary artery. High-grade lesion was noted in the obtuse marginal 3 artery of the circumflex. He underwent PCI of these lesions. Status: Acute Qualifiers: Chest pain type: chest pain due to myocardial ischemia Ischemic chest pain type: stable angina pectoris Qualified Code(s): I20.8 - Other forms of angina pectoris (2) Dyslipidemia (high LDL; low HDL): We will continue on the current medication . Status: Acute (3) Atherosclerotic heart disease: As mentioned above. Patient was found to have extensive stenting in the circumflex and the right coronary artery. He had in-stent stenosis in these vessels. Status: Acute Qualifiers: Coronary Disease-Associated Artery/Lesion type: [place] artery [place] vs. transplanted heart: [place] heart Associated angina: without angina Qualified Code(s): I25.10 - Atherosclerotic heart disease of [place] coronary artery without angina pectoris (4) Hypertension: May continue on the current medications. We will try to optimize his antihypertensive medications. Status: Acute Qualifiers: Hypertension type: essential hypertension Qualified Code(s): I10 - Essential (primary) hypertension (5) Diabetes type 2, controlled: Patient is on of this will be continued. The Metformin is on hold Status: Acute Qualifiers: Diabetes mellitus alf insulin use: without alf use Diabetes mellitus complication status: with hyperglycemia Qualified Code(s): E11.65 - Type 2 diabetes mellitus with hyperglycemia Additional A&P Information Other problems are Dyslipidemia Obesity Smoking abuse Osteoarthritis Patient will have a BMP , CBC, troponin today and an EKG today. If he continues to remain stable with no new symptoms, will be discharging home today. Attestations Medical Necessity Statement*: Possible discharge home today Coding Level of Care Code Acute Geosciences Associate Professor for Dorag Fwd Diagnoses Chest pain I20.8 Chest pain type: chest pain due to myocardial ischemia Ischemic chest pain type: stable angina pectoris Dyslipidemia (high LDL; low HDL) E78.5 Atherosclerotic heart disease I25.10 Coronary Disease-Associated Artery/Lesion type: [place] artery [place] vs. transplanted heart: [place] heart Associated angina: without angina Hypertension I10 Hypertension type: essential hypertension Diabetes type 2, controlled E11.65 Diabetes mellitus alf insulin use: without buttermaker helper use Diabetes mellitus complication status: with hyperglycemia
--- NOTE | 2021-01-24 09:22 | ECG_ITS ---
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 Measurements Intervals [place] Rate: 59 P: 48 [place]: 209 QRS: 59 QRSD: 98 T: 107 QT: 407 QTc: 405 Interpretive Statements SINUS BRADYCARDIA PROBABLE INFERIOR MYOCARDIAL INFARCTION [35 ms Q WAVE IN II/aVF], PROBABLY OLD No previous ECG available for comparison Electronically Signed On 01-24-2021 19:32:54 CDT by Rick Mitchell M.D. [id number]
--- NOTE | 2021-01-24 10:34 | PC.CHAP ---
Pastoral Care Encounter/Spiritual Assessment Type of Contact [] Declined screw down visit [] Patient/Family/Request visit [] Outpatient visit [] Follow-up visit [] Physician referral [] Code/Alert [x] Routine visit [] Staff referral [] Actively dying [] Patient sleeping [] Family support [] [] Out of room [] Palliative care [] [x] Receiving care in room [] Pre-surgical visit [] Trauma [] Long length of stay [] ICU visit [] Other: Relational/Emotional Strength [] Patient feels connected with others/family/visitors/staff [] Distress [] Loneliness/isolation [] Abandonment Spirituality of Patient [x] Person of Carol [] Attends Christianity of their Carol [x] Believes in Prayer [] Reads Bible or Taoist materials [] There are Spiritual issues to be addressed Cull Grader Interventions [x] Prayer [x] Active listening [x] Non-anxious presence [x] Spiritual/emotional support [] Crisis/trauma care [x] Spiritual counseling [] Bereavement support [] Provided bereavement packet [] Provided Bible/devotional materials [] Provided toy/stuffed animal, coloring book to patient or family member [] Provided Communion [] Anointing/[place] [] Salvation [x] Completed spiritual assessment [] Other: Impact on Illness or Injury [] Angry [] Fearful [x] Anxious [] Often cries [] Exhaustion [] Unable to work [] Unable to attend temple [] Unable to walk/stand [] Unable to read [] Unable to drive [] Unable to eat/drink [] Unable to sleep [] Unable to be with family [] Patient intubated [] Other: Summary Feels good going home to family, has a good attitude Time spent with patient 10 mins
[2021-01-24 10:41] VITALS: BP 159/77; PULSE 85; RESP 19; TEMP 36.7; O2SAT 96
[2021-01-24 10:46] LABS: Basophils # 0.1 10^3/uL (0.0-0.1); Eosinophils # 0.3 10^3/uL (0.0-0.8); Eosinophils % 3.8 %; Hematocrit 42.7 % (42.0-52.0); Hemoglobin 14.2 g/dL (11.7-16.6); Lymphocytes # 1.4 10^3/uL (0.8-4.8); Lymphocytes % 15.8 %; Mean Corpuscular HGB Conc 33.3 g/dL (30.0-36.0); Mean Corpuscular Volume 93.2 fL (80-94); Mean Platelet Volume 9.8 fL (7.4-10.4); Monocytes # 0.8 10^3/uL (0.2-0.9); Monocytes % 8.7 %; Neutrophils # 6.37 10^3/uL (1.8-7.7); Neutrophils % 70.3 %; Nucleated Red Blood Cells % 0 %; Platelet Count 268 10^3/cmm (130-400); Red Blood Count 4.58 10^6/uL (4.1-5.3); Red Cell Distribution Width 12.1 % (12.1-15.1); White Blood Count 9.1 10^3/uL (4.0-10.0)
[2021-01-24 11:11] LABS: Anion Gap 9.9 (5-19); Blood Urea Nitrogen 12 mg/dL (8-23); Calcium 8.8 mg/dL (8.5-10.5); Carbon Dioxide 31 mmol/L (22-29); Chloride 98 mmol/L (98-107); Glomerular Filtration Rate 97.3 mL/min (90-130); Glucose 174 mg/dL (65-115); Osmolality Calculated 282 mOsm/kg (285-295); Potassium 4.9 mmol/L (3.5-5.1); Sodium 134 mmol/L (136-145)
[2021-01-24 11:17] LABS: Troponin T (5th) Once 139 ng/L (0-15)
[2021-01-24 12:37] VITALS: BP 159/77; PULSE 85; RESP 19; TEMP 36.7; O2SAT 96
--- NOTE | 2021-01-24 13:32 | PC.NURSE ---
discharge instructions given and explained.pt verb understanding of instructions.discharged via w/c to exit at this time.pt's family to drive him home.
== END 2021-01-24 13:35 | disposition home or self-care (01) ==
LOC: CCL 06:08 → CSU 08:33
PROVIDERS: Internal Medicine; PCP Family Medicine; Visit Provider Internal Medicine Cardiovascular Disease
DX: I25.118 Atherosclerotic heart disease of native coronary artery with other forms of angina pectoris (principal); E78.5 Hyperlipidemia, unspecified; I25.10 Atherosclerotic heart disease of native coronary artery without angina pectoris; I10 Essential (primary) hypertension; E11.65 Type 2 diabetes mellitus with hyperglycemia; I50.9 Heart failure, unspecified; F17.210 Nicotine dependence, cigarettes, uncomplicated
CPT/HCPCS: 36415; 80048; 84484; 85025; 85347; 85610; 86850; 86900; 93005; 93452; C1725; C1769; C1874; C1887; C1894; C9600; C9601; J1644; J2250; J3010; J3490; J7030; Q0163; Q9967

== ENCOUNTER 2021-01-30 21:44 | Inpatient (IN) | payer OTHER, SELFPAY ==
[2021-01-30 21:53] VITALS: BP 179/84; PULSE 70; RESP 16; TEMP 37; O2SAT 93; BMI 41.3
--- NOTE | 2021-01-30 22:00 | XRR_ITS ---
PROCEDURE INFORMATION: Exam: XR Chest Exam date and time: 01/30/2021 10:03 PM Age: 65 years old Clinical indication: Pain; Chest pressure; Additional info: Cp TECHNIQUE: Imaging protocol: XR of the chest. Views: 1 view. COMPARISON: No relevant prior studies available. FINDINGS: Lungs: Mild left basilar atelectasis. Pleural spaces: Unremarkable. No pleural effusion. No pneumothorax. Heart/Mediastinum: The cardiac shadow is normal in size. Bones/joints: No acute abnormality. XR/XR chest 1V portable [id number] IMPRESSION: Mild left basilar atelectasis.
--- NOTE | 2021-01-30 22:00 | ECG_ITS ---
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 Measurements Intervals [place] Rate: 71 P: 12 [place]: 198 QRS: 60 QRSD: 86 T: 96 QT: 370 QTc: 404 Interpretive Statements SINUS RHYTHM NONSPECIFIC T-WAVE ABNORMALITY Compared to ECG 01/24/2021 09:34:36 T-wave abnormality now present Sinus bradycardia no longer present Myocardial infarct finding no longer present Electronically Signed On 01-31-2021 10:16:20 CDT by Linda Jade M.D. [email or web address] [email or web address].[email or web address]/store/[id number]
--- NOTE | 2021-01-30 22:06 | W.ED.CHESTPA ---
HPI - Chest Pain General: Chief Complaint: ER Hold Stated Complaint: side pain Time Seen by Provider: 01/30/21 22:00 Source: patient Mode of arrival: ambulatory Limitations: no limitations History of Present Illness: HPI narrative: 65-year-old male who has an extensive cardiac history states he started having chest and abdominal pain this morning. He states he occasionally felt like a gas bubble in his upper abdomen is worsened about the day. His main pain is in the epigastric left upper quadrant of his abdomen he states that sharp in nature. He states it radiates into his chest and is currently 9 out of 10. Sharla denies any diaphoresis or shortness of breath. Patient states he had stents placed 2 weeks ago. He states this does not feel like his typical cardiac pain that is more in his abdomen. He denies any worsening improving factors currently. MD complaint: chest pain Associated symptoms: Reports abdominal pain; Deny dyspnea or fever(s) Review of Systems Const: Denies: fever(s), chills, body aches or change in appetite Eyes: Denies: blurry vision or eye discomfort ENMT: Denies: throat pain or dental pain Card: Reports: chest pain Resp: Denies: dyspnea GI: Reports: abdominal pain : Denies: dysuria Musc: Denies: neck pain or back pain Skin/Breast: Denies: rash Neuro: Denies: headache(s) Psych: Denies: depression Mark/Lymph: Denies: easy bruising All/Imm: Denies: urticaria PFSH ED PFSH: Medical History Atherosclerotic heart disease Chest pain Congestive heart failure Diabetes type 2, controlled KANG (dyspnea on exertion) Dyslipidemia (high LDL; low HDL) Hypertension Smoking addiction 5 PPD for 35 years staarted cutting back 1 year ago- now 1PPD Surgical History H/O heart artery stent History of cholecystectomy Family History Other CAD (coronary artery disease) Diabetes Family history of premature coronary artery disease Hyperlipidemia Hypertension Social History Smoking and tobacco status: current every day smoker cigarettes Packs smoked per day: 1 Alcohol intake: never Physical Exam Const: COMMON NORMALS: no acute distress, patient oriented x3 and healthy appearing HENMT: COMMON NORMALS: normocephalic and atraumatic HEAD & SCALP: normocephalic and atraumatic Eye: COMMON NORMALS: Equal, round and reactive pupils present and EOMs intact bilaterally PUPIL: Yes Equal, round and reactive pupils present Neck/C-Spine: COMMON NORMALS: full ROM and supple Chest: COMMONS NORMALS: normal inspection of the chest and normal palpation of entire chest wall Resp: COMMON NORMALS: normal respiratory effort, No retractions, No use of accessory muscles and clear to auscultation bilaterally AUSCULTATION: clear to auscultation bilaterally Cardio: COMMON NORMALS: regular rate, regular rhythm and No murmurs present (Cardio) RATE: regular rate RHYTHM: regular rhythm GI: COMMON NORMALS: Normal to inspection, nondistended, normoactive bowel sounds present, Soft to palpation and no masses PALPATION: Yes Soft to palpation and Yes Tenderness to palpation present (GI) Details: LUQ Extremity: COMMON NORMALS: normal to inspection and full ROM Neuro: COMMON NORMALS: patient oriented x3, moves all extremities and no focal motor deficits Psych: COMMON NORMALS: mental status grossly normal, Normal thought process present and cooperative THOUGHT PROCESS: Normal thought process present Skin: COMMON NORMALS: no rashes or lesions noted and no wounds GENERAL SKIN EXAM: no rashes or lesions noted Course Vital Signs: Vital signs: Vital Signs Temperature 98.6 F 01/30/21 21:53 Pulse Rate 74 01/31/21 00:45 Respiratory Rate 18 01/31/21 01:49 Blood Pressure 154/81 01/31/21 01:49 Pulse Oximetry 87 L 01/31/21 01:49 MDM - Chest Pain MDM Narrative: Medical decision making narrative: Skyler presents here with chest pain along with some abdominal pain. His CT scan of his abdomen which showed no acute abnormality also CT of chest showed no abnormalities well. His 2-hour troponin here is decreased and his EKGs here are normal. He is continue to have pain here. I did give him nitro and Dilaudid is now pain-free. Spoke to hospitalist will admit for observation as he had the ongoing pain. He has no signs of acute STEMI. Lab Data: Labs: Lab Results 01/30/21 01/30/21 01/30/21 Range/Units 22:16 22:16 22:16 WBC 10.7 H (4.0-10.0) 10^3/ uL RBC 4.84 (4.1-5.3) 10^6/u L Hgb 15.0 (11.7-16.6) g/dL Hct 44.1 (42.0-52.0) % MCV 91.1 (80-94) fL MCH 31.0 (28.0-34.0) pg MCHC 34.0 (30.0-36.0) g/dL RDW 12.3 (12.1-15.1) % Plt Count 304 (130-400) 10^3/c mm MPV 9.6 (7.4-10.4) fL Neut % (Auto) 65.9 % Lymph % (Auto) 19.3 % [place] % (Auto) 9.2 % Eos % (Auto) 4.2 % Baso % (Auto) 0.9 % Neut # (Auto) 7.04 (1.8-7.7) 10^3/u L Lymph # (Auto) 2.1 (0.8-4.8) 10^3/u L [place] # (Auto) 1.0 H (0.2-0.9) 10^3/u L Eos # (Auto) 0.5 (0.0-0.8) 10^3/u L Baso # (Auto) 0.1 (0.0-0.1) 10^3/u L Nucleated RBC % (a uto) 0 % Nucleated RBCs # 0.0 /100WBC PT 12.40 (12.1-14.9) SECO NDS INR 0.89 (0.8-1.2) Sodium 135 L (136-145) mmol/L Potassium 4.2 (3.5-5.1) mmol/L Chloride 97 L (98-107) mmol/L Carbon Dioxide 26 (22-29) mmol/L Anion Gap 16.2 (5-19) BUN 16 (8-23) mg/dL Creatinine 0.9 (0.7-1.2) mg/dL GFR Calculation 85.0 L (90-130) mL/min Glucose 134 H (65-115) mg/dL Calculated Osmolal ity 283 L (285-295) mOsm/k g Lactate (0.5-2.2) mmol/L Calcium 8.8 (8.5-10.5) mg/dL Total Bilirubin 0.2 (0.15-1.2) mg/dL AST 14 (0-40) U/L ALT 28 (0-41) U/L Alkaline Phosphata se 121 (40-130) IU/L Troponin T Baselin e (0-15) ng/L Troponin T 120 Min [place] (0-15) ng/L Delta Troponin T (0-10) ABS# Total Protein 7.7 (6.6-8.7) g/dL Albumin 4.5 (3.5-5.2) g/dL Globulin 3.2 (1.3-4.6) g/dL Lipase 36 (13-60) U/L 01/30/21 01/31/21 01/31/21 Range/Units 22:16 00:29 01:48 WBC (4.0-10.0) 10^3/ uL RBC (4.1-5.3) 10^6/u L Hgb (11.7-16.6) g/dL Hct (42.0-52.0) % MCV (80-94) fL MCH (28.0-34.0) pg MCHC (30.0-36.0) g/dL RDW (12.1-15.1) % Plt Count (130-400) 10^3/c mm MPV (7.4-10.4) fL Neut % (Auto) % Lymph % (Auto) % [place] % (Auto) % Eos % (Auto) % Baso % (Auto) % Neut # (Auto) (1.8-7.7) 10^3/u L Lymph # (Auto) (0.8-4.8) 10^3/u L [place] # (Auto) (0.2-0.9) 10^3/u L Eos # (Auto) (0.0-0.8) 10^3/u L Baso # (Auto) (0.0-0.1) 10^3/u L Nucleated RBC % (a uto) % Nucleated RBCs # /100WBC PT (12.1-14.9) SECO NDS INR (0.8-1.2) Sodium (136-145) mmol/L Potassium (3.5-5.1) mmol/L Chloride (98-107) mmol/L Carbon Dioxide (22-29) mmol/L Anion Gap (5-19) BUN (8-23) mg/dL Creatinine (0.7-1.2) mg/dL GFR Calculation (90-130) mL/min Glucose (65-115) mg/dL Calculated Osmolal ity (285-295) mOsm/k g Lactate 1.5 (0.5-2.2) mmol/L Calcium (8.5-10.5) mg/dL Total Bilirubin (0.15-1.2) mg/dL AST (0-40) U/L ALT (0-41) U/L Alkaline Phosphata se (40-130) IU/L Troponin T Baselin e 27 H (0-15) ng/L Troponin T 120 Min [place] 19.51 H (0-15) ng/L Delta Troponin T -7.49 L (0-10) ABS# Total Protein (6.6-8.7) g/dL Albumin (3.5-5.2) g/dL Globulin (1.3-4.6) g/dL Lipase (13-60) U/L Imaging Data^: CT Chest: Attestation: I personally reviewed and interpreted this imaging study as follows: My impression: no acute abnormality EKG Data^: EKG 1: Attestation: I personally reviewed and interpreted this EKG as follows: EKG interpretation date: 01/30/21 EKG interpretation time: 22:06 Interpretation: nsr hr [address] ort wave abnormalities qrs 86 qtc 393 EKG 2: Attestation: I personally reviewed and interpreted this EKG as follows: EKG interpretation date: 01/30/21 EKG interpretation time: 23:52 Interpretation: nsr hr [address] or t wave abnormalities qrs 86 qtc 405 EKG 3: Attestation: I personally reviewed and interpreted this EKG as follows: EKG interpretation date: 01/31/21 EKG interpretation time: 01:32 Interpretation: nsr hr [address] or t wave abnormalities qrs 84 qtc 408 Discharge Plan Discharge Patient Disposition: Admitted As Inpatient Admit Provider: Silviano Ghosh Clinical Impression: Abdominal pain Chest pain Qualifiers: Chest pain type: unspecified Qualified Code(s): R07.9 - Chest pain, unspecified Condition: Stable Coding Level of Care Code ED Public Speaking Instructor for Chg Fwd Exam Comprehensive
--- NOTE | 2021-01-30 22:09 | CTR_ITS ---
PROCEDURE INFORMATION: Exam: CTA Chest With Contrast Exam date and time: 01/30/2021 10:13 PM Age: 65 years old Clinical indication: Abdominal pain; Localized; Left lower quadrant (llq); Chest wall pain; Prior surgery; Surgery type: Cardiac stents x 2 placed one week ago. Gb. ; Patient HX: Lower left chest wall and llq pain. Angio repeated. Best run submitted. ; Additional info: Abd pain TECHNIQUE: Imaging protocol: Computed tomographic angiography of the chest with contrast. 3D rendering (Not supervised by radiologist): MIP and/or 3D reconstructed images were created by the technologist. Contrast material: OMNI 350; Contrast volume: 165 ml; Contrast route: INTRAVENOUS (IV); COMPARISON: CR (CHEST, ) 01/30/2021 10:05 PM RADIATION DOSE METRICS: Total DLP (mGy-cm): 3008.01 FINDINGS: Pulmonary arteries: The pulmonary arteries are poorly opacified. Aorta: No acute abnormality. Lungs: Mild scarring/atelectasis. No focal consolidation. Pleural spaces: Unremarkable. No pneumothorax. No pleural effusion. Heart: No cardiomegaly. No pericardial effusion. Lymph nodes: No enlarged lymph nodes. Bones/joints: No acute fracture. Soft tissues: Within normal limits. IMPRESSION: Unable to assess for pulmonary embolus due to contrast timing. No evidence of right heart strain. PROCEDURE INFORMATION: Exam: CT Abdomen And Pelvis With Contrast Exam date and time: 01/30/2021 10:13 PM Age: 65 years old Clinical indication: Abdominal pain; Localized; Left lower quadrant (llq); Chest wall pain; Prior surgery; Surgery type: Cardiac stents x 2 placed one week ago. Gb. ; Patient HX: Lower left chest wall and llq pain. Angio repeated. Best run submitted. ; Additional info: Abd pain TECHNIQUE: Imaging protocol: Computed tomography of the abdomen and pelvis with contrast. 3D rendering (Not supervised by radiologist): MIP and/or 3D reconstructed images were created by the technologist. Contrast material: OMNI 350; Contrast volume: 165 ml; Contrast route: INTRAVENOUS (IV); COMPARISON: CR (CHEST, ) 01/30/2021 10:05 PM RADIATION DOSE METRICS: Total DLP (mGy-cm): 3008.01 FINDINGS: Lungs: The visualized lung bases are clear. Liver: Normal size and density. No focal mass. Gallbladder and bile ducts: Status post cholecystectomy. No biliary dilatation. Pancreas: No evidence of mass. No ductal dilation. Spleen: No splenomegaly or mass. Adrenal glands: Normal. Kidneys and ureters: Mild bilateral perinephric edema. A 1.5 cm simple cyst in the anterior left kidney. No stones or hydronephrosis. No hydroureter. Stomach and bowel: No evidence of obstruction. No focal bowel wall thickening or mass. No significant diverticula. Appendix: No evidence of appendicitis. Intraperitoneal space: No free air. No free fluid or evidence of abscess. Vasculature: Scattered vascular calcifications. Lymph nodes: No lymphadenopathy. Urinary bladder: Normal CT appearance. Reproductive: Normal CT appearance for age. Bones/joints: Bilateral L5 pars defects and grade 1 anterolisthesis. Moderate degenerative changes in the lower lumbar spine. No acute osseous abnormality. Soft tissues: Within normal limits. CT/CT angio chest w abd pel w con IMPRESSION: 1. No acute abnormalities identified. 2. Appearance of the kidneys suggests some degree of medical renal disease. COMMENTS: Consistent with the [place]'s Incidental Findings Committee white paper (J Am Griffin Radiol 2018): Any incidental renal lesion less than 1 cm or classified as too small to characterize, or any incidental cystic renal lesion characterized as simple-appearing, is likely benign. No follow-up imaging is recommended for these lesions per consensus recommendations based on imaging criteria. Radiation Dose CTDIVOL = (mGy): DLP = 3008.01~3008.01 (mGy-cm)
[2021-01-30 22:17] VITALS: BP 172/86; PULSE 71; RESP 28; O2SAT 96
[2021-01-30 22:20] VITALS: RESP 18
[2021-01-30] MEDS: HYDROmorphone 1 mg/mL INJ 1 mL IVP (22:20)
[2021-01-30] MEDS: ondansetron 2 mg/ML SDV 2 mL 4 MG IVP (22:21)
[2021-01-30 22:22] LABS: Basophils # 0.1 10^3/uL (0.0-0.1); Basophils % 0.9 %; Eosinophils # 0.5 10^3/uL (0.0-0.8); Eosinophils % 4.2 %; Hematocrit 44.1 % (42.0-52.0); Lymphocytes # 2.1 10^3/uL (0.8-4.8); Lymphocytes % 19.3 %; Mean Corpuscular Volume 91.1 fL (80-94); Mean Platelet Volume 9.6 fL (7.4-10.4); Monocytes % 9.2 %; Neutrophils # 7.04 10^3/uL (1.8-7.7); Neutrophils % 65.9 %; Nucleated Red Blood Cells % 0 %; Platelet Count 304 10^3/cmm (130-400); Red Blood Count 4.84 10^6/uL (4.1-5.3); Red Cell Distribution Width 12.3 % (12.1-15.1); White Blood Count 10.7 10^3/uL (4.0-10.0)
[2021-01-30] MEDS: iohexol 350 mg/mL 100 mL Btl IV ×2 (22:43→22:45)
[2021-01-30 22:45] LABS: Alanine Aminotransferase 28 U/L (0-41); Albumin Level 4.5 g/dL (3.5-5.2); Alkaline Phosphatase 121 IU/L (40-130); Anion Gap 16.2 (5-19); Aspartate Amino Transferase 14 U/L (0-40); Blood Urea Nitrogen 16 mg/dL (8-23); Calcium 8.8 mg/dL (8.5-10.5); Carbon Dioxide 26 mmol/L (22-29); Chloride 97 mmol/L (98-107); Globulin 3.2 g/dL (1.3-4.6); Glucose 134 mg/dL (65-115); INR 0.89 (0.8-1.2); Lipase 36 U/L (13-60); Osmolality Calculated 283 mOsm/kg (285-295); Potassium 4.2 mmol/L (3.5-5.1); Sodium 135 mmol/L (136-145); Total Bilirubin 0.2 mg/dL (0.15-1.2); Total Protein 7.7 g/dL (6.6-8.7)
[2021-01-30 22:49] LABS: Troponin(5th) Baseline 27 ng/L (0-15)
[2021-01-30] MEDS: lidocaine 2% viscous 15 ML, aluminum-mag hydrox-simethicon 30 ML, sucralfate oral liq 1 GM PO (23:21)
[2021-01-31] VITALS (9 sets, daily range): BP systolic 140–157; BP diastolic 77–85; PULSE 64–74; RESP 12–18; TEMP 36.6–37.1; O2SAT 87–95
--- NOTE | 2021-01-31 | ECG_ITS ---
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 Measurements Intervals [place] Rate: 73 P: 5 LA: 192 QRS: 65 QRSD: 86 T: 94 QT: 379 QTc: 419 Interpretive Statements SINUS RHYTHM NONSPECIFIC T-WAVE ABNORMALITY Compared to ECG 01/30/2021 22:06:35 No significant changes Electronically Signed On 02-01-2021 0:02:28 CDT by Linda Jade M.D. [id number] f
[2021-01-31] MEDS: HYDROmorphone 1 mg/mL INJ 1 mL IVP ×2 (00:46→01:43)
[2021-01-31 00:48] LABS: Troponin 5 2HR 19.51 ng/L (0-15)
[2021-01-31 00:52] LABS: Troponin 5 2HR Delta -7.49 ABS# (0-10)
--- NOTE | 2021-01-31 00:52 | PC.NURSE ---
Pt states he drank mag citrate yesterday because he felt bloated. Pt states his last BM was yesterday and pt has not passed gas since.
[2021-01-31] MEDS: nitroglycerin 0.4 mg sublingual Tablet SUBLINGUAL (01:42)
[2021-01-31] MEDS: aspirin 81 mg Chew Tablet 324 MG PO (01:42)
--- NOTE | 2021-01-31 01:52 | PC.NURSE ---
Pt c/o left chest sharp pain regardless of treatment. Pt became diaphoretic and o2 dropped to 87% on RA. Physician notified. Pt placed on 2 LNC.
[2021-01-31 02:07] LABS: Lactate (Lactic Acid level) 1.5 mmol/L (0.5-2.2)
--- NOTE | 2021-01-31 02:15 | ECG_ITS ---
[facility] Test Date: 2021-01-31 Pat Name: Jonn Fernandes Department: Room: 107 Gender: Male Radiologist: : 1955 Requested By: Silviano Temple Order Number: [id number] Jaleesa MD: Linda Jade M.D. Measurements Intervals [place] Rate: 70 P: 40 MO: 216 QRS: 53 QRSD: 84 T: 90 QT: 387 QTc: 419 Interpretive Statements SINUS RHYTHM WITH FIRST DEGREE AV BLOCK NONSPECIFIC T-WAVE ABNORMALITY Compared to ECG 01/30/2021 23:52:16 First degree AV block now present T-wave abnormality still present Electronically Signed On 02-01-2021 0:04:58 CDT by Linda Jade M.D. [id number]
--- NOTE | 2021-01-31 02:17 | P.HP_ITS ---
Providers/Chief Complaint Primary Care Provider: Vi Escalante MD Chief Complaint: side pain History of Present Illness Jonn Fernandes is a 65 year old male with past medical history of coronary artery disease, 12 stents previously. Last 2 stents were placed [address] Jade. The patient reports left sided chest pain which started early head start director yesterday. It is intermittent but frequent. Present at rest but gets worse w ith activities. It originates in the left lateral chest wall and radiates to anterior chest and back. Reports associated diaphoresis. Denies associated shortness of breath or cough. Reports similar pain with previous cardiac events but this time the location is more lateral. Described as strong spasms. Severe. Troponin is slightly elevated but the EKG without any acute ischemic changes. CT abdomen chest and pelvis was unremarkable. Nitroglycerin provided only minimal effect. The pain improved with Dilaudid. Currently it is much better. Denies nausea or vomiting, diarrhea. No fever or chills. No hemoptysis. He reports being compliant with his medications. Received aspirin in emergency room. He used to smoke in the past. Quit about a year ago. Medications/Allergies Home Medications Medication Instructions Recorded Confirmed Last Taken Type amlodipine 10 mg tablet 10 mg PO QDAY 09/29/19 01/23/21 01/22/21 08:00 History glipizide 5 mg tablet 5 mg PO BID 09/29/19 01/23/21 01/22/21 08:00 History hydrochlorothiazide 25 mg tablet 25 mg PO QAM 09/29/19 01/23/21 01/22/21 08:00 History isosorbide mononitrate 60 mg 60 mg PO QAM 09/29/19 01/23/21 01/22/21 08:00 History tablet,extended release 24 hr modafinil 200 mg tablet 200 mg PO BID 09/29/19 01/23/21 01/22/21 12:00 History losartan 50 mg tablet 50 mg PO DAILY 30 Days #90 tab 11/22/19 01/23/21 Unknown Rx metformin 1,000 mg tablet 1,000 mg PO BID tab 11/22/19 01/23/21 01/21/21 08:00 History metoprolol succinate 100 mg 100 mg PO BID tab 11/22/19 01/23/21 01/22/21 20:00 History tablet,extended release 24 hr ezetimibe 10 mg tablet 10 mg PO DAILY 30 Days #30 tab 03/07/20 01/23/21 01/22/21 20:00 Rx nitroglycerin 0.4 mg sublingual 0.4 mg SUBLINGUAL Q5M PRN 30 Days 09/03/20 01/23/21 Unknown Rx tablet #30 tab prasugrel 10 mg tablet 10 mg PO DAILY #90 tab 12/27/20 01/23/21 01/22/21 08:00 Rx bupropion HCl 75 mg PO BID 01/23/21 01/23/21 01/22/21 20:00 History fluoxetine 10 mg PO DAILY 01/23/21 01/23/21 01/22/21 08:00 History oxycodone-acetaminophen 1 tab PO Q8H PRN 01/23/21 01/23/21 Unknown History ropinirole 1 mg PO DAILY 01/23/21 01/23/21 01/22/21 20:00 History tamsulosin 0.8 mg PO DAILY 01/23/21 01/23/21 01/22/21 20:00 History hydralazine 25 mg PO TID 30 Days #90 tab 01/24/21 Unknown Rx Allergies Allergy/AdvReac Type Severity Reaction Status Date / Time valsartan [From [employer]] Allergy liver Verified 11/20/20 09:48 failure Kkvudzv-Dlg-Mmb Reductase AdvReac Intermediate muscle pain Verified 11/20/20 09:48 Inhibitor PFSH Acute PFSH: Medical History Atherosclerotic heart disease Chest pain Congestive heart failure Diabetes type 2, controlled KANG (dyspnea on exertion) Dyslipidemia (high LDL; low HDL) Hypertension Smoking addiction 5 PPD for 35 years staarted cutting back 1 year ago- now 1PPD Surgical History H/O heart artery stent History of cholecystectomy Family History Other CAD (coronary artery disease) Diabetes Family history of premature coronary artery disease Hyperlipidemia Hypertension Social History Smoking and tobacco status: current every day smoker cigarettes Packs smoked per day: 1 Alcohol intake: never Vitals/I&O/Wt Last Vital Signs Temp 98.6 F 01/30/21 21:53 Pulse 74 01/31/21 00:45 Resp 18 01/31/21 01:49 BP 154/81 01/31/21 01:49 Pulse Ox 87 L 01/31/21 01:49 Weight last 48 hrs Weight 127.006 kg Physical Exam Narrative: EXAM NARRATIVE: Patient is awake alert and oriented. In mild distress secondary to the pain. Mood and affect are appropriate. And responses are adequate. Skin is warm and dry currently. Moist mucous membranes. Neck supple. No JVD Eyes PERRL, extraocular muscles are intact Normal speech Lungs bilateral diffuse wheezes. No crackles. No respiratory distress Heart S1, S2, regular Abdomen obese, soft, nontender, bowel sounds are present Extremities trace pedal edema. No cyanosis no calf tenderness bilaterally Neuro examination is nonfocal. Data : 01/30/21 22:16 01/30/21 22:16 Other Labs: Laboratory Results WBC 10.7 10^3/uL (4.0-10.0) H 01/30/21 22:16 RBC 4.84 10^6/uL (4.1-5.3) 01/30/21 22:16 Hgb 15.0 g/dL (11.7-16.6) 01/30/21 22:16 Hct 44.1 % (42.0-52.0) 01/30/21 22:16 MCV 91.1 fL (80-94) 01/30/21 22:16 MCH 31.0 pg (28.0-34.0) 01/30/21 22:16 MCHC 34.0 g/dL (30.0-36.0) 01/30/21 22:16 RDW 12.3 % (12.1-15.1) 01/30/21 22:16 Plt Count 304 10^3/cmm (130-400) 01/30/21 22:16 MPV 9.6 fL (7.4-10.4) 01/30/21 22:16 Neut % (Auto) 65.9 % 01/30/21 22:16 Lymph % (Auto) 19.3 % 01/30/21 22:16 [place] % (Auto) 9.2 % 01/30/21 22:16 Eos % (Auto) 4.2 % 01/30/21 22:16 Baso % (Auto) 0.9 % 01/30/21 22:16 Neut # (Auto) 7.04 10^3/uL (1.8-7.7) 01/30/21 22:16 Lymph # (Auto) 2.1 10^3/uL (0.8-4.8) 01/30/21 22:16 [place] # (Auto) 1.0 10^3/uL (0.2-0.9) H 01/30/21 22:16 Eos # (Auto) 0.5 10^3/uL (0.0-0.8) 01/30/21 22:16 Baso # (Auto) 0.1 10^3/uL (0.0-0.1) 01/30/21 22:16 Nucleated RBC % (auto) 0 % 01/30/21 22:16 Nucleated RBCs # 0.0 /100WBC 01/30/21 22:16 PT 12.40 SECONDS (12.1-14.9) 01/30/21 22:16 INR 0.89 (0.8-1.2) 01/30/21 22:16 Sodium 135 mmol/L (136-145) L 01/30/21 22:16 Potassium 4.2 mmol/L (3.5-5.1) 01/30/21 22:16 Chloride 97 mmol/L (98-107) L 01/30/21 22:16 Carbon Dioxide 26 mmol/L (22-29) 01/30/21 22:16 Anion Gap 16.2 (5-19) 01/30/21 22:16 BUN 16 mg/dL (8-23) 01/30/21 22:16 Creatinine 0.9 mg/dL (0.7-1.2) 01/30/21 22:16 GFR Calculation 85.0 mL/min (90-130) L 01/30/21 22:16 Glucose 134 mg/dL (65-115) H 01/30/21 22:16 Calculated Osmolality 283 mOsm/kg (285-295) L 01/30/21 22:16 Lactate 1.5 mmol/L (0.5-2.2) 01/31/21 01:48 Calcium 8.8 mg/dL (8.5-10.5) 01/30/21 22:16 Total Bilirubin 0.2 mg/dL (0.15-1.2) 01/30/21 22:16 AST 14 U/L (0-40) 01/30/21 22:16 ALT 28 U/L (0-41) 01/30/21 22:16 Alkaline Phosphatase 121 IU/L (40-130) 01/30/21 22:16 Troponin T Baseline 27 ng/L (0-15) H 01/30/21 22:16 Troponin T 120 Minute 19.51 ng/L (0-15) H 01/31/21 00:29 Delta Troponin T -7.49 ABS# (0-10) L 01/31/21 00:29 Total Protein 7.7 g/dL (6.6-8.7) 01/30/21 22:16 Albumin 4.5 g/dL (3.5-5.2) 01/30/21 22:16 Globulin 3.2 g/dL (1.3-4.6) 01/30/21 22:16 Lipase 36 U/L (13-60) 01/30/21 22:16 Impressions Chest X-Ray 01/30/21 22:00 IMPRESSION: Mild left basilar atelectasis. Chest/Abdomen/Pelvis CT 01/30/21 22:09 IMPRESSION: 1. No acute abnormalities identified. 2. Appearance of the kidneys suggests some degree of medical renal disease. COMMENTS: Consistent with the [place] [employer]'s Incidental Findings Committee white paper (J Am Griffin Radiol 2018): Any incidental renal lesion less than 1 cm or classified as too small to characterize, or any incidental cystic renal lesion characterized as simple-appearing, is likely benign. No follow-up imaging is recommended for these lesions per consensus recommendations based on imaging criteria. Radiation Dose CTDIVOL = (mGy): DLP = 3008.01~3008.01 (mGy-cm) A&P Additional A&P Information 65-year-old male with past medical history of coronary artery disease, hypertension, dyslipidemia, previous stents presents with left-sided chest pain. Troponin is elevated. EKG without acute ischemic changes. Non-ST elevation [place]/acute coronary syndrome. The patient is being admitted to cardiac unit. We will continue monitoring his EKG and troponin level. Was already given aspirin. We will continue nitroglycerin and opiates for pain control. Oxygen as needed. We will continue his home beta-edgar. He is allergic to statin. I am also starting him on Lovenox full dose. 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 Jade in the morning. Hypertension. We will continue most of his home blood pressure medications. Will use as needed labetalol for excessive blood pressure elevation. Dyslipidemia. We will continue his home ezetimibe. He is allergic to statins. Diabetes. We will hold his home medications. We will order insulin sliding scale. DVT prophylaxis. He will be on enoxaparin. GI prophylaxis. Famotidine. The plan of care was discussed with the patient. He verbalized understanding and agreement. Attestations Medical Necessity Statement*: Based on my assessment of patient's current condition he will require more than 2 midnights in the hospital. Coding Level of Care Code Acute Librarian Assistant for Sheryl Staples
[2021-01-31] MEDS: enoxaparin 120 mg/0.8 mL Syringe SUBCUT (03:16)
[2021-01-31] MEDS: famotidine 20 mg/2 mL INJ IVP (03:16)
[2021-01-31 06:07] LABS: Glucose Point of Care 136 mg/dL (70-110)
[2021-01-31 07:21] LABS: Chol HDL Ratio 5.45 mg/dL (1.0-5.00); Cholesterol 207 mg/dL (0-200); HDL Cholesterol 38 mg/dL (60-100); LDL Cholesterol Calculated 105 mg/dL (50-129); LDL HDL Ratio 2.76 RATIO (0.00-3.22); Triglycerides 322 mg/dL (0-150)
[2021-01-31] MEDS: isosorbide mononitrate ER 60 mg Tablet PO (07:26)
[2021-01-31] MEDS: amlodipine 10 mg Tablet PO (07:26)
--- NOTE | 2021-01-31 08:15 | ECG_ITS ---
[facility] Test Date: 2021-01-31 Pat Name: Jonn Fernandes Department: Room: 107 Gender: Male Facility Specialist: : 1955 Requested By: Silviano Temple Order Number: [id number] Jaleesa MD: Linda Jade M.D. Measurements Intervals [place] Rate: 65 P: 12 [place]: 196 QRS: 46 QRSD: 83 T: 99 QT: 389 QTc: 406 Interpretive Statements SINUS RHYTHM NONSPECIFIC T-WAVE ABNORMALITY Possible old inferior wall PA Compared to ECG 01/31/2021 01:32:46 First degree AV block no longer present T-wave abnormality still present Electronically Signed On 02-01-2021 0:06:11 CDT by Linda Jade M.D. [id number]
--- NOTE | 2021-01-31 09:47 | PC.CHAP ---
Pastoral Care Encounter/Spiritual Assessment Type of Contact [] Declined manager customs visit [] Patient/Family/Request visit [] Outpatient visit [] Follow-up visit [] Physician referral [] Code/Alert [x] Routine visit [] Staff referral [] Actively dying [] Patient sleeping [] Family support [] [] Out of room [] Palliative care [] [x] Receiving care in room [] Pre-surgical visit [] Trauma [] Long length of stay [] ICU visit [] Other: Relational/Emotional Strength [x] Patient feels connected with others/family/visitors/staff [] Distress [] Loneliness/isolation [] Abandonment Spirituality of Patient [x] Person of Carol [] Attends Jehovah'S Witness of their Carol [x] Believes in Prayer [] Reads Bible or Protestant materials [] There are Spiritual issues to be addressed Corporate Representative Interventions [x] Prayer [x] Active listening [x] Non-anxious presence [x] Spiritual/emotional support [] Crisis/trauma care [x] Spiritual counseling [] Bereavement support [] Provided bereavement packet [] Provided Bible/devotional materials [] Provided toy/stuffed animal, coloring book to patient or family member [] Provided Communion [] Anointing/[place] [] Salvation [x] Completed spiritual assessment [] Other: Impact on Illness or Injury [] Angry [] Fearful [x] Anxious [] Often cries [] Exhaustion [x] Unable to work [] Unable to attend jew [] Unable to walk/stand [] Unable to read [] Unable to drive [] Unable to eat/drink [] Unable to sleep [] Unable to be with family [] Patient intubated [] Other: Summary dealing with his heart short trem going home soon has a good attitude +1 Time spent with patient 10 mins
[2021-01-31] MEDS: metoprolol succinate ER (24 HR) 100 mg Tablet PO (09:54)
[2021-01-31] MEDS: tamsulosin 0.4 mg Capsule 0.8 MG PO (09:54)
[2021-01-31] MEDS: prasugrel 10 MG Tablet PO (09:55)
[2021-01-31] MEDS: losartan 50 mg Tablet PO (09:55)
[2021-01-31] MEDS: hyDRALAzine 25 mg Tablet PO (09:55)
[2021-01-31] MEDS: ropinirole 1 mg Tablet PO (09:55)
[2021-01-31] MEDS: ezetimibe 10 mg Tablet PO (10:06)
[2021-01-31] MEDS: fluoxetine 10 mg Capsule PO (10:07)
--- NOTE | 2021-01-31 10:46 | USCV_ITS ---
Dom Jonn Age: 65 Gender: M : 1955 Exam Date: 01/31/2021 10:58 Ordering Phys: Porter Salazar MD Technologist: TOMER Exam Location: [facility] Indication: CHEST PAIN BP: 140 / 77 HR: 69 Rhythm: Sinus Technical Quality: Suboptimal MEASUREMENTS (Male / Female) Normal Values 2D ECHO LV Diastolic Diameter PLAX 3.0 cm 4.2 - 5.9 / 3.9 - 5.3 cm LV Systolic Diameter PLAX 2.7 cm LV Chamber Size 3.4 cm IVS Diastolic Thickness 1.5 cm 0.6 - 1.0 / 0.6 - 0.9 cm IVS Systolic Thickness 1.8 cm LVPW Diastolic Thickness 2.6 cm 0.6 - 1.0 / 0.6 - 0.9 cm LVPW Systolic Thickness 2.9 cm RV Chamber Size 3.0 cm LVOT Diameter 2.0 cm LV Ejection Fraction 2D Teich 22.0 % LV Ejection Fraction MOD 2C 39.4 % LV Ejection Fraction 2C AL 35.2 % LA Diameter 3.6 cm LA Width 2.8 cm LA Height 5.4 cm RA Width 4.0 cm RA Height 4.0 cm Aorta at Sinotubular Diameter 2.3 cm M-MODE LV Diastolic Diameter MM 5.5 cm 4.2 - 5.9 / 3.9 - 5.3 cm LV Systolic Diameter MM 3.0 cm LV Ejection Fraction MM Teich 76.7 % IVS Diastolic Thickness MM 1.2 cm 0.6 - 1.0 / 0.6 - 0.9 cm IVS Systolic Thickness MM 1.3 cm LVPW Diastolic Thickness MM 0.8 cm 0.6 - 1.0 / 0.6 - 0.9 cm LVPW Systolic Thickness MM 1.8 cm Aortic Annulus Diameter 3.5 cm LA Ao Ratio MM 1.3 MV E Point Septal Separation 1.0 cm DOPPLER AV Peak Velocity 165.0 cm/s LVOT Peak Velocity 140.0 cm/s AV Area Cont Eq vti 3.6 cm squared AV Area Cont Eq pk 2.8 cm squared MV Area PHT 3.4 cm squared Mitral E to A Ratio 0.9 MV E' Velocity 64.0 cm/s Mitral E to MV E' Ratio 11.4 Mitral E to LV E' Lateral Ratio 9.8 Mitral E to LV E' Septal Ratio 13.7 TR Peak Velocity 146.5 cm/s TR Peak Gradient 8.6 mmHg TV Peak E Velocity 52.0 cm/s Right Atrial Pressure 3.0 mmHg Pulmonary Artery Systolic Pressu 11.6 mmHg PV Peak Velocity 101.0 cm/s RV Acceleration Time 0.1 s RV Ejection Time 0.4 s RV AcT/ET 0.3 FINDINGS Left Ventricle Normal left ventricular cavity size. Normal left ventricular systolic function. No regional wall motion abnormalities. Left ventricular ejection fraction is estimated at 70 %. Grade I/IV diastolic dysfunction (abnormal relaxation filling pattern), normal to mildly elevated filling pressures. Right Ventricle The right ventricle is normal in size and function. Right Atrium The right atrium is normal in size. Left Atrium The left atrium is normal in size. Mitral Valve Moderately thickened mitral valve. No mitral valve stenosis. No mitral valve regurgitation. Aortic Valve Mild aortic valve calcification. No aortic valve stenosis. No aortic valve regurgitation. Tricuspid Valve Structurally normal tricuspid valve without significant stenosis or regurgitation. Pulmonary artery systolic pressure is normal. Pulmonic Valve Structurally normal pulmonic valve without significant stenosis. There is no pulmonic regurgitation. Pericardium Normal pericardium without effusion. Aorta Normal ascending aorta dimension. CONCLUSIONS 1-Normal left ventricular cavity size. Normal left ventricular systolic function. No regional wall motion abnormalities. Left ventricular ejection fraction is estimated at 70 %. Grade I/IV diastolic dysfunction (abnormal relaxation filling pattern), normal to mildly elevated filling pressures. 2-There is no pericardial effusion. 3-No significant valve abnormalities. 4-Pulmonary artery systolic pressure is within normal limits. 5-Right atrial pressure is around 5 mm of mercury. 6-There are no prior echocardiogram studies to compare. Frannie Macario MD (Electronically Signed) Final Date: 31 Jan 2021 21:09 S
--- NOTE | 2021-01-31 10:56 | P.DS_ITS ---
Discharge Providers Date of Admission: 01/31/21 02:27 Date of Discharge: January 31, 2021 Attending Provider at Admission: Silviano Ghosh Attending Provider at Discharge: Porter Salazar MD Primary Care Provider: Vi Escalante MD Diagnoses at Discharge Discharge Diagnosis (1) Abdominal pain: Status: Acute (2) Chest pain: Status: Acute Qualifiers: Chest pain type: unspecified Qualified Code(s): R07.9 - Chest pain, unspecified (3) Obesity (BMI 30-39.9): Status: Acute (4) Dyslipidemia (high LDL; low HDL): Status: Acute (5) Smoking addiction: Status: Acute Permanent problem details: 5 PPD for 35 years staarted cutting back 1 year ago- now 1PPD (6) Atherosclerotic heart disease: Status: Acute Qualifiers: Associated angina: without angina Coronary Disease-Associated Artery/Lesion type: ely shoshone artery [place] vs. transplanted heart: ely shoshone heart Qualified Code(s): I25.10 - Atherosclerotic heart disease of ely shoshone coronary artery without angina pectoris (7) Hypertension: Status: Acute Qualifiers: Hypertension type: essential hypertension Qualified Code(s): I10 - Essential (primary) hypertension (8) Diabetes type 2, controlled: Status: Acute Qualifiers: Diabetes mellitus complication status: with hyperglycemia Diabetes mellitus assistant terminal manager insulin use: without assistant terminal manager use Qualified Code(s): E11.65 - Type 2 diabetes mellitus with hyperglycemia Reason for Visit Reason for Visit: side pain Hospital Course Hospital Course Jonn Fernandes is a 65 year old male with past medical history of coronary artery disease, 12 stents previously. Last 2 stents were placed [address] Jade. The patient reports left sided chest pain which started spar finisher yesterday. It is intermittent but frequent. Present at rest but gets worse with activities. It originates in the left lateral chest wall and radiates to anterior chest and back. Reports associated diaphoresis. Denies associated shortness of breath or cough. Reports similar pain with previous cardiac events but this time the location is more lateral. Described as strong spasms. Severe. Troponin is slightly elevated but the EKG without any acute ischemic changes. CT abdomen chest and pelvis was unremarkable. Nitroglycerin provided only minimal effect. The pain improved with Dilaudid. Currently it is much better. Denies nausea or vomiting, diarrhea. No fever or chills. No hemoptysis. He reports being compliant with his medications. Received aspirin in emergency room. He used to smoke in the past. Quit about a year ago. Patient under the hospital for atypical chest pain. ACS was ruled out with negative troponin cycle and a stable EKG. Patient did not have any further chest pain both on exertion and at rest while hospitalized. CTA chest abdomen pelvis was done which ruled out aortic dissection, pulmonary embolism, fracture, any abdominal pathology. Patient's pain became better after Dilaudid most likely patient's pain is secondary to musculoskeletal versus esophageal spasm. On admission patient was found to be having mild hypertension so cannot rule out vasospastic angina. His antihypertensives were adjusted and dose of hydralazine was increased. His lipid panel was also severely deranged. Was counseled and and discussed in detail with the patient regarding the need of a statin. Patient agreed to try rosuvastatin for now and repeat his CMP and CPK in 2 weeks with his primary care provider. Patient agrees and understands that at this point it is very important for him to take a statin given his significant cardiac history and significantly deranged lipid panel. Echocardiogram was done prior to discharge. He was congratulated and counseled again to continue from smoking abstinence. Is been discharged in medically stable condition on increased dose of hydralazine, baby aspirin, rosuvastatin and lidocaine patch along with famotidine. Physical Exam Narrative: EXAM NARRATIVE: Patient is awake alert and oriented. In mild distress secondary to the pain. Mood and affect are appropriate. And responses are adequate. Skin is warm and dry currently. Moist mucous membranes. Neck supple. No JVD Eyes PERRL, extraocular muscles are intact Normal speech Lungs bilateral diffuse wheezes. No crackles. No respiratory distress Heart S1, S2, regular Abdomen obese, soft, nontender, bowel sounds are present Extremities trace pedal edema. No cyanosis no calf tenderness bilaterally Neuro examination is nonfocal. Discharge Data Data Completed and Pending: Completed Studies During Hospitalization Category Date Time Status CT angio chest w abd pel w con Urge nt Cat Scan 01/30/21 22:09 Completed XR chest 1V caleb ble [id number] Stat Exams 01/30/21 22:00 Completed Pending at discharge Category Date Time Status Basic Metabolic P jodi AM LABS Lab 02/01/21 04:00 Ordered Complete Blood Co unt w/Auto AM LABS Lab 02/01/21 04:00 Ordered Magnesium AM LABS Lab 02/01/21 04:00 Ordered CV echo complete* [id number] Routine Ultrasound 01/31/21 10:46 Ordered Labs from last 24 hours 01/31/21 01/31/21 01/31/21 05:55 04:25 01:48 WBC RBC Hgb Hct MCV MCH MCHC RDW Plt Count MPV Neut % (Auto) Lymph % (Auto) [place] % (Auto) Eos % (Auto) Baso % (Auto) Neut # (Auto) Lymph # (Auto) [place] # (Auto) Eos # (Auto) Baso # (Auto) Nucleated RBC % (a uto) Nucleated RBCs # PT INR Sodium Potassium Chloride Carbon Dioxide Anion Gap BUN Creatinine GFR Calculation Glucose POC Glucose 136 H Calculated Osmolal ity Lactate 1.5 Calcium Total Bilirubin AST ALT Alkaline Phosphata se Troponin T Baselin e Troponin T 120 Min [place] Delta Troponin T Troponin T Hi Sens 6Hr 26.60 H Troponin T Hi Sens 6Hr Delta -0.40 L Total Protein Albumin Globulin Triglycerides Cholesterol LDL Cholesterol, C alc HDL Cholesterol LDL/HDL Ratio Cholesterol/HDL Ra [place] Lipase 01/31/21 01/31/21 01/30/21 00:29 00:29 22:16 WBC RBC Hgb Hct MCV MCH MCHC RDW Plt Count MPV Neut % (Auto) Lymph % (Auto) [place] % (Auto) Eos % (Auto) Baso % (Auto) Neut # (Auto) Lymph # (Auto) [place] # (Auto) Eos # (Auto) Baso # (Auto) Nucleated RBC % (a uto) Nucleated RBCs # PT INR Sodium Potassium Chloride Carbon Dioxide Anion Gap BUN Creatinine GFR Calculation Glucose POC Glucose Calculated Osmolal ity Lactate Calcium Total Bilirubin AST ALT Alkaline Phosphata se Troponin T Baselin e 27 H Troponin T 120 Min [place] 19.51 H Delta Troponin T -7.49 L Troponin T Hi Sens 6Hr Troponin T Hi Sens 6Hr Delta Total Protein Albumin Globulin Triglycerides 322 H Cholesterol 207 H LDL Cholesterol, C alc 105 HDL Cholesterol 38 L LDL/HDL Ratio 2.76 Cholesterol/HDL Ra [place] 5.45 H Lipase 01/30/21 01/30/21 01/30/21 22:16 22:16 22:16 WBC 10.7 H RBC 4.84 Hgb 15.0 Hct 44.1 MCV 91.1 MCH 31.0 MCHC 34.0 RDW 12.3 Plt Count 304 MPV 9.6 Neut % (Auto) 65.9 Lymph % (Auto) 19.3 [place] % (Auto) 9.2 Eos % (Auto) 4.2 Baso % (Auto) 0.9 Neut # (Auto) 7.04 Lymph # (Auto) 2.1 [place] # (Auto) 1.0 H Eos # (Auto) 0.5 Baso # (Auto) 0.1 Nucleated RBC % (a uto) 0 Nucleated RBCs # 0.0 PT 12.40 INR 0.89 Sodium 135 L Potassium 4.2 Chloride 97 L Carbon Dioxide 26 Anion Gap 16.2 BUN 16 Creatinine 0.9 GFR Calculation 85.0 L Glucose 134 H POC Glucose Calculated Osmolal ity 283 L Lactate Calcium 8.8 Total Bilirubin 0.2 AST 14 ALT 28 Alkaline Phosphata se 121 Troponin T Baselin e Troponin T 120 Min [place] Delta Troponin T Troponin T Hi Sens 6Hr Troponin T Hi Sens 6Hr Delta Total Protein 7.7 Albumin 4.5 Globulin 3.2 Triglycerides Cholesterol LDL Cholesterol, C alc HDL Cholesterol LDL/HDL Ratio Cholesterol/HDL Ra [place] Lipase 36 Addt'l Data from Hospital Stay: Laboratory Results WBC 10.7 10^3/uL (4.0 -10.0) H 01/30/21 22:16 RBC 4.84 10^6/uL (4.1 -5.3) 01/30/21 22:16 Hgb 15.0 g/dL (11.7-1 6.6) 01/30/21 22:16 Hct 44.1 % (42.0-52.0 ) 01/30/21 22:16 MCV 91.1 fL (80-94) 01/30/21 22:16 MCH 31.0 pg (28.0-34. 0) 01/30/21 22:16 MCHC 34.0 g/dL (30.0-3 6.0) 01/30/21 22:16 RDW 12.3 % (12.1-15.1 ) 01/30/21 22:16 Plt Count 304 10^3/cmm (130 -400) 01/30/21 22:16 MPV 9.6 fL (7.4-10.4) 01/30/21 22:16 Neut % (Auto) 65.9 % 01/30/21 22:16 Lymph % (Auto) 19.3 % 01/30/21 22:16 [place] % (Auto) 9.2 % 01/30/21 22:16 Eos % (Auto) 4.2 % 01/30/21 22:16 Baso % (Auto) 0.9 % 01/30/21 22:16 Neut # (Auto) 7.04 10^3/uL (1.8 -7.7) 01/30/21 22:16 Lymph # (Auto) 2.1 10^3/uL (0.8- 4.8) 01/30/21 22:16 [place] # (Auto) 1.0 10^3/uL (0.2- 0.9) H 01/30/21 22:16 Eos # (Auto) 0.5 10^3/uL (0.0- 0.8) 01/30/21 22:16 Baso # (Auto) 0.1 10^3/uL (0.0- 0.1) 01/30/21 22:16 Nucleated RBC % (a uto) 0 % 01/30/21 22:16 Nucleated RBCs # 0.0 /100WBC 01/30/21 22:16 PT 12.40 SECONDS (12 .1-14.9) 01/30/21 22:16 INR 0.89 (0.8-1.2) 01/30/21 22:16 Sodium 135 mmol/L (136-1 45) L 01/30/21 22:16 Potassium 4.2 mmol/L (3.5-5 .1) 01/30/21 22:16 Chloride 97 mmol/L (98-107 ) L 01/30/21 22:16 Carbon Dioxide 26 mmol/L (22-29) 01/30/21 22:16 Anion Gap 16.2 (5-19) 01/30/21 22:16 BUN 16 mg/dL (8-23) 01/30/21 22:16 Creatinine 0.9 mg/dL (0.7-1. 2) 01/30/21 22:16 GFR Calculation 85.0 mL/min (90-1 30) L 01/30/21 22:16 Glucose 134 mg/dL (65-115 ) H 01/30/21 22:16 POC Glucose 136 mg/dL (70-110 ) H 01/31/21 05:55 Calculated Osmolal ity 283 mOsm/kg (285- 295) L 01/30/21 22:16 Lactate 1.5 mmol/L (0.5-2 .2) 01/31/21 01:48 Calcium 8.8 mg/dL (8.5-10 .5) 01/30/21 22:16 Total Bilirubin 0.2 mg/dL (0.15-1 .2) 01/30/21 22:16 AST 14 U/L (0-40) 01/30/21 22:16 ALT 28 U/L (0-41) 01/30/21 22:16 Alkaline Phosphata se 121 IU/L (40-130) 01/30/21 22:16 Troponin T Baselin e 27 ng/L (0-15) H 01/30/21 22:16 Troponin T 120 Min [place] 19.51 ng/L (0-15) H 01/31/21 00:29 Delta Troponin T -7.49 ABS# (0-10) L 01/31/21 00:29 Troponin T Hi Sens 6Hr 26.60 ng/L (0-15) H 01/31/21 04:25 Troponin T Hi Sens 6Hr Delta -0.40 ng/L (0-12) L 01/31/21 04:25 Total Protein 7.7 g/dL (6.6-8.7 ) 01/30/21 22:16 Albumin 4.5 g/dL (3.5-5.2 ) 01/30/21 22:16 Globulin 3.2 g/dL (1.3-4.6 ) 01/30/21 22:16 Triglycerides 322 mg/dL (0-150) H 01/31/21 00:29 Cholesterol 207 mg/dL (0-200) H 01/31/21 00:29 LDL Cholesterol, C alc 105 mg/dL (50-129 ) 01/31/21 00:29 HDL Cholesterol 38 mg/dL (60-100) L 01/31/21 00:29 LDL/HDL Ratio 2.76 RATIO (0.00- 3.22) 01/31/21 00:29 Cholesterol/HDL Ra [place] 5.45 mg/dL (1.0-5 .00) H 01/31/21 00:29 Lipase 36 U/L (13-60) 05/19/21 22:16 Impressions Chest X-Ray 01/30/21 22:00 IMPRESSION: Mild left basilar atelectasis. Chest/Abdomen/Pelvis CT 01/30/21 22:09 FINDINGS: Pulmonary arteries: The pulmonary arteries are poorly opacified. Aorta: No acute abnormality. Lungs: Mild scarring/atelectasis. No focal consolidation. Pleural spaces: Unremarkable. No pneumothorax. No pleural effusion. Heart: No cardiomegaly. No pericardial effusion. Lymph nodes: No enlarged lymph nodes. Bones/joints: No acute fracture. Soft tissues: Within normal limits. IMPRESSION: Unable to assess for pulmonary embolus due to contrast timing. No evidence of right heart strain. IMPRESSION: 1. No acute abnormalities identified. 2. Appearance of the kidneys suggests some degree of medical renal disease. COMMENTS: Consistent with the [employer]'s Incidental Findings Committee white paper (J Am Griffin Radiol 2018): Any incidental renal lesion less than 1 cm or classified as too small to characterize, or any incidental cystic renal lesion characterized as simple-appearing, is likely benign. No follow-up imaging is recommended for these lesions per consensus recommendations based on imaging criteria. Radiation Dose CTDIVOL = (mGy): DLP = 3008.01~3008.01 (mGy-cm) Vitals: Last Vital Signs Temp 97.9 F 01/31/21 06:17 Pulse 67 01/31/21 07:37 Resp 18 01/31/21 06:17 BP 140/77 01/31/21 09:55 Pulse Ox 95 01/31/21 07:37 Discharge Plan Discharge Patient Disposition: Home Condition: Stable Prescriptions: New aspirin 81 mg Tablet,Delayed Release (Dr/Ec) 81 mg PO DAILY Qty: 30 RF: 0 Crestor 20 mg tablet 20 mg PO DAILY Qty: 30 RF: 0 Lidoderm 5 % Adhesive Patch,Medicated 1 patch topical [id number] Qty: 10 RF: 0 Pepcid 40 mg tablet 40 mg PO DAILY Qty: 30 RF: 0 Continued modafinil 200 mg tablet 200 mg PO BID RF: 0 amlodipine 10 mg tablet 10 mg PO QDAY RF: 0 glipizide 5 mg tablet 5 mg PO BID RF: 0 hydrochlorothiazide 25 mg tablet 25 mg PO QAM RF: 0 isosorbide mononitrate 60 mg tablet extended release 24 hr 60 mg PO QAM RF: 0 metoprolol succinate 100 mg tablet extended release 24 hr 100 mg PO BID RF: 0 metformin 1,000 mg tablet 1,000 mg PO BID RF: 0 Hold Instructions: Resume on 01/27/21. May take glipizide 5 mg twice daily, if the fasting blood sugar is more than 130, while being off the Metformin ezetimibe 10 mg tablet 10 mg PO DAILY 30 Days Qty: 30 RF: 5 losartan 50 mg tablet 50 mg PO DAILY 30 Days Qty: 90 RF: 5 nitroglycerin 0.4 mg tablet, sublingual 0.4 mg sublingual Q5M PRN (Reason: chest pain) 30 Days Qty: 30 RF: 3 prasugrel 10 mg tablet 10 mg PO DAILY Qty: 90 RF: 3 ropinirole 1 mg Tablet 1 mg PO DAILY RF: 0 fluoxetine 10 mg Tablet 10 mg PO DAILY RF: 0 oxycodone-acetaminophen 5-325 mg Tablet 1 tab PO Q8H PRN (Reason: Pain) RF: 0 tamsulosin 0.4 mg Capsule 0.8 mg PO DAILY RF: 0 bupropion HCl 75 mg Tablet 75 mg PO BID RF: 0 Changed hydralazine 25 mg tablet 50 mg PO TID 30 Days Qty: 90 RF: 3 Discharge Orders: Discharge Order (Routine); Ordered 01/31/21 Ordered By: Porter Salazar Referrals: Vi Escalante MD [Primary Care Provider] - 7-10 days (Repeat CMP and CPK) Carlita Montano FNP [Nurse Practitioner] - 4-7 days [facility] [Occupational Therapist] - ([facility]U HAVE A FOLLOW UP APPOINTMENT WITH DR. ESCALANTE, AT THE [facility] IN [place], ON January AT 0900. IF YOU HAVE ANY QUESTIONS OR NEED TO RESCHEDULE PLEASE CALL [phone]. ) Discharge Diet: Cardiac, Diabetic and Low Fat Discharge Activity: Resume usual activity Patient Instructions: Aspirin (By mouth), Rosuvastatin (By mouth), Chest Pain Stoplight, Opioid Safety Activity Restrictions/Additional Instructions: Please start taking rosuvastatin as discussed in detail. Please repeat CMP and CPK in 2 weeks and to follow-up with a primary care provider. Please follow-up with cardiology next 4 to 7 days. Discharge Attestations Time Spent in Discharge Care*: greater than 30 min Specific Discharge Activities: educating patient, discussing with pcp/other providers, discussing with case management associate/social workers/dc planners, documenting/other paperwork and evaluating patient/reviewing data Status at Discharge: Cognitive status at discharge: cognitively intact , Behavioral status at discharge: cooperative , Functional status at discharge: independent ambulation Overall status at discharge: patient is back to baseline Quality Metrics Clinical Quality Measures During this hospital stay, did patient experience: None Coding Level of Care Code Acute Chg FW DC note Diagnoses Abdominal pain R10.9 Chest pain R07.9 Chest pain type: unspecified Obesity (BMI 30-39.9) E66.9 Dyslipidemia (high LDL; low HDL) E78.5 Smoking addiction F17.200 Atherosclerotic heart disease I25.10 Associated angina: without angina Coronary Disease-Associated Artery/Lesion type: ely shoshone artery [place] vs. transplanted heart: ely shoshone heart Hypertension I10 Hypertension type: essential hypertension Diabetes type 2, controlled E11.65 Diabetes mellitus complication status: with hyperglycemia Diabetes mellitus assistant terminal manager insulin use: without assistant terminal manager use
[2021-01-31 11:34] LABS: Glucose Point of Care 137 mg/dL (70-110)
--- NOTE | 2021-01-31 11:45 | PC.NURSE ---
Pt education provided and [facility] Patient has no questions or concerns regarding d/c and VS are stable upon departure
--- NOTE | 2021-02-01 17:29 | PC.RESP ---
Pulmonary Rehab information sent to patient.
== END 2021-01-31 11:30 | disposition home or self-care (01) | DRG 313 ==
LOC: ER 01-31 02:01 → ER IP 01-31 02:29 → CSU 01-31 05:54
PROVIDERS: Admitting Provider Internal Medicine; Emergency Provider Emergency Medicine; PCP Family Medicine; Visit Provider Student in an Organized Health Care Education/Training Program
DX: R07.89 Other chest pain (principal); Z68.41 Body mass index [BMI] 40.0-44.9, adult; I20.1 Angina pectoris with documented spasm; I25.10 Atherosclerotic heart disease of native coronary artery without angina pectoris; Z95.5 Presence of coronary angioplasty implant and graft; I50.9 Heart failure, unspecified; I11.0 Hypertensive heart disease with heart failure; E11.65 Type 2 diabetes mellitus with hyperglycemia; E78.5 Hyperlipidemia, unspecified; F17.210 Nicotine dependence, cigarettes, uncomplicated; E66.9 Obesity, unspecified
CPT/HCPCS: 36415; 36416; 71045; 71275; 74177; 80053; 80061; 82962; 83605; 83690; 84484; 85025; 85610; 93005; 93306; 96372; 96374; 96375; 99285; J1170; J1650; J2405; J3490; Q9967

== ENCOUNTER → 2021-04-22 16:00 | Outpatient (BNVA) | payer OTHER, SELFPAY | PROVIDERS: PCP Family Medicine; Visit Provider Internal Medicine Cardiovascular Disease | DX: I11.0 Hypertensive heart disease with heart failure (principal); I50.33 Acute on chronic diastolic (congestive) heart failure; R06.02 Shortness of breath; I25.10 Atherosclerotic heart disease of native coronary artery without angina pectoris; E78.5 Hyperlipidemia, unspecified; J44.9 Chronic obstructive pulmonary disease, unspecified; Z87.891 Personal history of nicotine dependence | CPT/HCPCS: 80048; 83880 ==

== ENCOUNTER → 2021-06-04 10:45 | Outpatient (BNVA) | payer OTHER, SELFPAY | PROVIDERS: PCP Family Medicine; Visit Provider Orthopaedic Surgery | DX: Z01.812 Encounter for preprocedural laboratory examination (principal); Z20.822 Contact with and (suspected) exposure to COVID-19 | CPT/HCPCS: 87635 ==

== ENCOUNTER 2021-06-10 08:42 | Observation (INO) | payer OTHER, SELFPAY ==
[2021-06-04 09:25] VITALS: BMI 41.0
[2021-06-04 10:03] LABS: Basophils # 0.1 10^3/uL (0.0-0.1); Basophils % 0.9 %; Eosinophils # 0.7 10^3/uL (0.0-0.8); Eosinophils % 7.1 %; Hematocrit 38.6 % (42.0-52.0); Hemoglobin 12.7 g/dL (11.7-16.6); Lymphocytes # 2.1 10^3/uL (0.8-4.8); Mean Corpuscular HGB Conc 32.9 g/dL (30.0-36.0); Mean Corpuscular Volume 91.3 fl (80-94); Mean Platelet Volume 9.4 fL (7.4-10.4); Monocytes # 0.7 10^3/uL (0.2-0.9); Monocytes % 7.8 %; Neutrophils # 5.78 10^3/uL (1.8-7.7); Neutrophils % 61.9 %; Nucleated Red Blood Cells % 0 %; Platelet Count 280 10^3/cmm (130-400); Red Blood Count 4.23 10^6/uL (4.1-5.3); Red Cell Distribution Width 12.9 % (12.1-15.1); White Blood Count 9.3 10^3/uL (4.0-10.0)
--- NOTE | 2021-06-04 10:14 | ANES.PREANE2 ---
Pre-Anesthetic Assessment Pre-Anesthetic Assessment: Height/Weight: Height 1.75 m Weight 126.099 kg Preop Diagnosis: ASHD/abnormal myocardial perfusion imaging Proposed Procedure: Operation Date: 06/10/21 07:00 Proposed Procedures p Total Knee Arthroplasty 77869 M17.12(Left) - Wilmer Demarco MD Was Beta Macario taken within 24 hours: N/A Was Clonidine taken within 24 hours: N/A Social: Social History: No alcohol and No tobacco Exam: Pre-Anes Outpt Exam: alert and oriented x 3 Additional Exam Findings (including area of procedure): Bilateral distant w rhonchi usual for him Airway: Submandibular: WNL Cervical ROM: WNL Dentition: False History/ROS: No significant history except as noted Pulmonary: Pulmonary: COPD, KANG and SOB Comments: Home nebulizer for breathing treatments CV/HEM: CV/HEM: CHF and HTN : : None reported Hepatic: Hepatic: None reported GI: GI: None reported Metabolic: Metabolic: Morbid obesity Musc/skel: Musc/skel: RA Anesthetic Plan: ASA status: 3 Anesthesia: Regional (specify below) Other: SAB w post op pain block Risk of > 500 ml blood loss (7ml/kg in children): No PFSH Anesthesia PFSH: Medical History Atherosclerotic heart disease Chest pain Congestive heart failure Diabetes type 2, controlled KANG (dyspnea on exertion) Dyslipidemia (high LDL; low HDL) Hypertension Obesity (BMI 30-39.9) Osteoarthritis of knees, bilateral Osteoarthritis of left knee Smoking addiction 5 PPD for 35 years staarted cutting back 1 year ago- now 1PPD Surgical History H/O heart artery stent History of cholecystectomy Family History Mother CAD (coronary artery disease) Dementia Brother CAD (coronary artery disease) Father CAD (coronary artery disease) Lung disease Sister Cancer Other Family history of premature coronary artery disease Hyperlipidemia Hypertension Denies family history of Diabetes Clotting disorder Chronic kidney disease (CKD) Suicide Anesthesia complication Bleeding disorder Stroke Social History Alcohol intake: never Data Anesthesia CBC & Chem 7: 06/04/21 09:44 06/04/21 09:44 Other Labs: Laboratory Results - last 48 hr 06/04/21 09:44 WBC 9.3 RBC 4.23 Hgb 12.7 Hct 38.6 L MCV 91.3 MCH 30.0 MCHC 32.9 RDW 12.9 Plt Count 280 MPV 9.4 Neut % (Auto) 61.9 Lymph % (Auto) 22.0 [place] % (Auto) 7.8 Eos % (Auto) 7.1 Baso % (Auto) 0.9 Neut # (Auto) 5.78 Lymph # (Auto) 2.1 [place] # (Auto) 0.7 Eos # (Auto) 0.7 Baso # (Auto) 0.1 Nucleated RBC % (auto) 0 Nucleated RBCs # 0.0 Cardiac Studies: No Data to Display
[2021-06-04 10:24] LABS: Anion Gap 14.3 (5-19); Blood Urea Nitrogen 11 mg/dL (8-23); Calcium 8.8 mg/dL (8.5-10.5); Carbon Dioxide 25 mmol/L (22-29); Chloride 98 mmol/L (98-107); Glomerular Filtration Rate 113.5 mL/min (90-130); Glucose 177 mg/dL (65-115); Osmolality Calculated 280 mOsm/kg (285-295); Potassium 4.3 mmol/L (3.5-5.1); Sodium 133 mmol/L (136-145)
[2021-06-10] VITALS (26 sets, daily range): BP systolic 101–160; BP diastolic 50–96; PULSE 71–99; RESP 14–27; TEMP 36.4–37.1; O2SAT 83–97; BMI 43.4
[2021-06-10 06:21] LABS: Glucose Point of Care 139 mg/dL (70-110)
[2021-06-10] MEDS: oxyCODONE 20 mg ER (12 HR) Tablet PO (06:23)
[2021-06-10] MEDS: gabapentin 300 mg Capsule PO ×2 (06:23→18:11)
[2021-06-10] MEDS: sodium chloride 0.9% 1,000 ML 30 ML IV (06:23)
[2021-06-10] MEDS: acetaminophen 500 mg Tablet 1000 MG PO ×2 (06:24→16:29)
[2021-06-10] MEDS: CELEcoxib 200 mg Capsule 400 MG PO (06:24)
--- NOTE | 2021-06-10 06:40 | P.ANESUD_ITS ---
Pre-Anesthetic Update Pre-Anesthetic Assessment: Date of Surgery/Procedure: 06/10/21 Preop Ladan gnosis: Osteoarthritis Left knee Proposed Procedure: Operation Date: 06/10/21 07:00 Proposed Procedures p Total Knee Arthroplasty 38160 M17.12(Left) - Wilmer Demarco MD Any changes to Pre-Anesthetic Assessment?: No Last Intake: Intake Last Liquid Date 06/09/21 Last Liquid Time 23:00 Last Solid Date 06/09/21 Last Solid Time 20:00 Labs Last 48hrs: Laboratory Results - last 48 hr 06/10/21 06:19 POC Glucose 139 H Vitals: Temperature 98.2 F 06/10/21 06:08 Temperature Source Temporal Artery S can 06/10/21 06:08 Pulse Rate 71 06/10/21 06:08 Respiratory Rate 18 06/10/21 06:08 Blood Pressure 160/90 06/10/21 06:08 Blood Pressure Elizabeth n 113 06/10/21 06:08 Pulse Oximetry 96 06/10/21 06:08 Oxygen Delivery Me thod 06/10/21 06:08 Exam: Pre-Anes Outpt Exam: alert, oriented x 3, clear to auscultation bilaterally and regular rate & rhythm Other Pertinent Information: Other Pertinent Information: Patient took prasurgel yesterday mornign - will proceed with general Cardiac Studies: No Data to Display
--- NOTE | 2021-06-10 06:40 | ANES.PROC ---
Anesthesia Procedures Procedure/Date: 06/10/21 Nerve Block ^: Nerve Block 1: Main Anesthesia: general anesthesia Time Out Performed: No Consent: requested by attending/covering physician, from patient, from other, risks and benefits reviewed and patient agrees to proceed Nerve block location: adductor canal (L) Anesthesia monitors applied: pulse oximetry, EKG, BP cuff and oxygen Nerve block position: supine Anesthetic Used: ropivicaine 0.5% and with decadron (4 mg) Amount of anesthesia used (mL): 30 Ultrasound used to: visualize and ID femerol nerve Nerve Stimulator Used?: No Interscalene/Femoral BLK: 4 stimuplex 21 g needle used for position and inplane approach, visualize local anesthetic spread and no vascular puncture identified Injection: neg aspiration of heme and paresthesia +/- Patient Tolerated Procedure: well and no complications Complications: none Additional Comments: Patient experienced parasthesia w/ initial needle placement, needle withdrawn slightly, no more parasthesia. Injected 1 cc with no parasthesia. Rest of incremental injections commenced w/ no further episodes of parasthesia
--- NOTE | 2021-06-10 07:05 | P.HP_ITS ---
Same Day Surgery H&P Indication for Procedure/HPI DATE OF PROCEDURE: June 10, 2021 CHIEF COMPLAINT/INDICATIONFOR SURGICAL PROCEDURE: Osteoarthritis left knee unresponsive to conservative measures. Here for elective left total knee arthroplasty PREOP DIAGNOSIS: Osteoarthritis Left knee PLANNED PROCEDRUE: Operation Date: 06/10/21 07:00 Proposed Procedures p Total Knee Arthroplasty 29453 M17.12(Left) - Wilmer Demarco MD Medications/Allergies* Home Medications Medication Instructions Recorded Confirmed Type amlodipine 10 mg tablet 10 mg PO QDAY 09/29/19 06/10/21 History glipizide 5 mg tablet 5 mg PO BID 09/29/19 06/10/21 History hydrochlorothiazide 25 mg tablet 25 mg PO QAM 09/29/19 06/10/21 History isosorbide mononitrate 60 mg 60 mg PO QAM 09/29/19 06/10/21 History tablet,extended release 24 hr modafinil 200 mg tablet 200 mg PO BID 09/29/19 06/10/21 History metformin 1,000 mg tablet 1,000 mg PO BID tab 11/22/19 06/10/21 History metoprolol succinate 100 mg 100 mg PO BID tab 11/22/19 06/10/21 History tablet,extended release 24 hr bupropion HCl 75 mg PO BID 01/23/21 06/10/21 History fluoxetine 10 mg PO DAILY 01/23/21 06/10/21 History oxycodone-acetaminophen 1 tab PO Q8H PRN 01/23/21 06/10/21 History tamsulosin 0.8 mg PO DAILY 01/23/21 06/10/21 History lidocaine 3.75 % topical cream 1 applic TOPICAL BID 04/22/21 06/10/21 History ropinirole 1 mg tablet 4 mg PO DAILY tab 04/22/21 06/10/21 History Allergies/Adverse Reactions Allergy/AdvReac Type Severity Reaction Status Date / Time valsartan [From Keegan] Allergy liver Verified 06/04/21 09:17 failure Tdaclwf-Kgz-Xdt Reductase AdvReac Intermediate muscle pain Verified 06/04/21 09:17 Inhibitor Current Medications: Generic Name Dose Route Start Last Admin Trade Name Freq PRN Reason Stop Dose Admin Sodium Chloride 1,000 mls @ 30 mls/hr 06/10/21 05:45 06/10/21 06:23 Sodium Chloride 0.9% IV 06/11/21 05:44 30 mls/hr .Q24H MARCIAL Administration Pertinent History/Comorbid Conditions* Medical History Atherosclerotic heart disease Chest pain Congestive heart failure Diabetes type 2, controlled KANG (dyspnea on exertion) Dyslipidemia (high LDL; low HDL) Hypertension Obesity (BMI 30-39.9) Osteoarthritis of knees, bilateral Osteoarthritis of left knee Mr. Fernandes has severe osteoarthritis in the left knee. He has significant functional limitation is a failed surgery. He has previously been counseled regarding total knee. Clearances have been obtained and he is willing to proceed. We will set him up for total knee replacement. He was received a [place] cruciate retaining press-fit total knee arthroplasty. There are no contraindications to TXA. We will managed with aspirin and foot pumps for DVT prophylaxis. He can avoid stairs at home. His is prepared to assist him with surgery postoperatively. Smoking addiction 5 PPD for 35 years staarted cutting back 1 year ago- now 1PPD Surgical History (Updated 11/22/19 @ 11:09 by Linda Jade MD) H/O heart artery stent History of cholecystectomy Family History (Updated 04/22/21 @ 15:03 by Ghazala Oscar RN) CAD (coronary artery disease) Mother Brother Father Dementia Mother Hyperlipidemia Family history of premature coronary artery disease Lung disease Father Cancer Sister Hypertension Denies family history of Diabetes Clotting disorder Chronic kidney disease (CKD) Suicide Anesthesia complication Bleeding disorder Stroke Social History Alcohol intake: never Pertinent Exam Findings alert, oriented x 3, clear to auscultation bilaterally, regular rate & rhythm and operative site marked Recommendations Surgery/Procedure today Coding Level of Care Code 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
[2021-06-10] MEDS: tranexamic acid 1,000 mg/10mL SDV 1000 MG IRRIGATION (07:44)
[2021-06-10] MEDS: ketorolac 30 mg/mL INJ IM (07:44)
[2021-06-10] MEDS: EPINEPHrine 1 mg/mL INJ XX (07:45)
--- NOTE | 2021-06-10 09:08 | XR_ITS ---
WS: [id number] Exam: XR knee RT 1-2V 09439 Date/Time of Exam: 06/10/2021 9:08 AM Reason For Exam: Right Total Knee arthroplasty Comparison 09/01/2019. A total knee prosthesis has been placed. Alignment is satisfactory. Postoperative changes in the lois cent soft tissues. XR/XR knee RT 1-2V 31522 IMPRESSION: 1. Total joint replacement in excellent position.
--- NOTE | 2021-06-10 09:09 | PM.OP ---
Operative Report Date of procedure: June 10, 2021 Pre-op Diagnosis: Osteoarthritis Left knee Post-op diagnosis: same Post-op Findings: Same Procedure Done: Left total knee arthroplasty Implants: [place] total knee arthroplasty components were used includin) Size 6 triathalon cruciate retaining femoral component 2) Size 6 Tritanium tibial component 3) 38 mm /11 mm thickness Tritanium asymetric patella 4) Size 6/9 mm thickness CR tibial bearing insert Pathology: none sent Surgeon: Wilmer Demarco Anesthesia: General and Nerve Block (Adductor canal block) Estimated blood loss (mL): 100 Complications: None Findings: The patient eburnated bone and narrowing over the patient had eburnated bone over his medial femoral condyle medial tibial plateau patella and trochlea Condition: stable Procedure: The patient was taken to the operating room. Patient was given 1 g of tranexamic acid . The above anesthesia provided by the anesthesia service. A timeout was performed. The patient was prepped and draped in the usual fashion with the lower extremity exposed. A anterior incision was made, midline, from a point proximal to the patella to the distal tibial tubercle. The knee was entered through a medial parapatellar approach. The patella could be displaced laterally and the knee flexed. The patellar fat pad was resected to provide better visibility. Retractors were placed medially and laterally adjacent to the tibial plateau. The femoral canal was drilled in line with the longitudinal axis of the femur. Intramedullary femoral guide for used to make a distal femoral cut in 5 degrees of valgus, resecting 8 mm from the more prominent condyle. Next the extra medullary tibial guide was placed in alignment with the longitudinal axis of the tibia. The cutting guides were set to remove just over 9 mm from the high tibial plateau. The proximal tibia was then cut. The femoral measuring guide was then placed over the distal femur. Rotation was verified checking the relationship of the guide to the condyle and the trochlear groove. The femur was measured and cut for the desired femoral component. The desired tibial baseplate was then chosen. A trial reduction with the femur tibial baseplate and polyethylene was done, assuring that the knee was stable throughout full motion. Ligament balancing involved a release of the deep medial collateral ligament and medial tibial osteophytes.The tibia was prepared for the tibial baseplate. Patellar thickness was then measured. The patella was cut removing articular cartilage and prepared for appropriate size patellar button. surfaces were cleaned with a gentamicin/tranexamic acid solution. The femur tibia and patella were then press-fit into place. The posterior capsule and collateral ligaments were then injected with a solution of 100 mL of 0.2% ropivacaine, 1 mL of a 1:1000 epinephrine solution, 30 mg of Toradol, and 1 g of tranexamic acid. final polyethylene component was then snapped into place into the tibia. The extensor retinaculum was closed with a running 1 Stratafix.. The subcutaneous tissues were closed with 2-0 Vicryl and the skin was closed with a running 4-0 Stratafix. The wound was covered with a Dermabond Prinio dressing. It was covered with 4xrs and a compressive Tubigauae was applied. The patient was taken to recovery room in stable condition.
[2021-06-10] MEDS: fentaNYL 50 mcg/mL INJ 2mL IVP (09:31)
--- NOTE | 2021-06-10 09:42 | SUR.PHASEI ---
0922 PT NOW AWAKE X RAY DONE, PT COUGHING WITH AUDIBLE EXP WHEEZES NOTED SEE TX GIVEN, PT HOB AT 30 DEGREES, 0931 PT C/O OF PAIN OF 9 SEE PAIN MED GIVEN.DRESSING TO LT KNEE D/I FIRST ICE TO SITE PULSE MARKED FOOT COOL PINK WITH CAP REFILL LESS THAN 3 SECONDS.
--- NOTE | 2021-06-10 09:59 | SUR.PHASEI ---
0949 DR VILLAREAL AT BEDSIDE PT STILL COUGHING OCC WITH HARD COUGH, STATES , ( THOSE SECRETIONS ARE STARTING TO BREAK UP ) HOB AT 35 DEGREES PT TAKING ICE CHIPS PT OK TO GO TO FLOOR PT NOW IN HOLDING , WAITING TO GIVE REPORT TO FLOOR NURSE.
[2021-06-10] MEDS: sodium chloride 0.9% 1,000 ML 100 ML IV (11:13)
[2021-06-10] MEDS: ropinirole 1 mg Tablet 4 MG PO (11:48)
[2021-06-10] MEDS: metoprolol succinate ER (24 HR) 100 mg Tablet PO ×2 (11:49→18:11)
[2021-06-10] MEDS: aspirin 81 mg EC Tablet PO (11:49)
[2021-06-10] MEDS: amlodipine 10 mg Tablet PO (11:49)
[2021-06-10] MEDS: hyDRALAzine 25 mg Tablet 50 MG PO ×3 (11:49→20:26)
[2021-06-10] MEDS: tamsulosin 0.4 mg Capsule 0.8 MG PO (11:49)
[2021-06-10] MEDS: losartan 50 mg Tablet 100 MG PO (11:49)
[2021-06-10] MEDS: ezetimibe 10 mg Tablet PO (11:50)
[2021-06-10 12:03] LABS: Glucose Point of Care 220 mg/dL (70-110)
[2021-06-10] MEDS: prasugrel 10 MG Tablet PO (13:19)
[2021-06-10] MEDS: oxyCODONE 5 mg IR Tab/Cap 10 MG PO ×2 (14:44→20:27)
--- NOTE | 2021-06-10 16:33 | ANE.PACU2 ---
Inpatient post-anesthesia follow up: Airway intact: Yes Vital signs: Temperature 98.7 F Pulse Rate 99 Respiratory Rate 18 Blood Pressure 125/69 Pulse Oximetry 92 Oxygen Delivery Me thod Nasal Cannula Oxygen Flow Rate 2 Fraction of Inspir ed Oxygen Hydration adequate: Yes Nausea and vomiting: No Pain level: 2 Mental status: Baseline
[2021-06-10 16:56] LABS: Glucose Point of Care 229 mg/dL (70-110)
[2021-06-10] MEDS: sennosides-docusate Tablet 2 TAB PO (18:10)
[2021-06-10] MEDS: CELEcoxib 200 mg Capsule PO (18:11)
[2021-06-10 20:56] LABS: Glucose Point of Care 309 mg/dL (70-110)
[2021-06-11] VITALS (7 sets, daily range): BP systolic 109–125; BP diastolic 63–72; PULSE 60–82; RESP 13–18; TEMP 36.4–36.6; O2SAT 93–94
[2021-06-11] MEDS: acetaminophen 500 mg Tablet 1000 MG PO ×2 (00:12→09:09)
[2021-06-11 03:09] LABS: Hemoglobin 11.7 g/dL (11.7-16.6)
[2021-06-11] MEDS: sodium chloride 0.9% 1,000 ML 100 ML IV (03:49)
[2021-06-11] MEDS: CELEcoxib 200 mg Capsule PO (05:23)
[2021-06-11] MEDS: isosorbide mononitrate ER 60 mg Tablet PO (05:23)
[2021-06-11] MEDS: hydroCHLOROthiazide 25 mg Tablet PO (05:23)
[2021-06-11 06:32] LABS: Glucose Point of Care 150 mg/dL (70-110)
[2021-06-11] MEDS: oxyCODONE 5 mg IR Tab/Cap 10 MG PO ×2 (08:41→12:34)
[2021-06-11] MEDS: gabapentin 300 mg Capsule PO (09:04)
[2021-06-11] MEDS: atorvastatin 40 mg Tablet 80 MG PO (09:04)
[2021-06-11] MEDS: tamsulosin 0.4 mg Capsule 0.8 MG PO (09:06)
[2021-06-11] MEDS: amlodipine 10 mg Tablet PO (09:06)
[2021-06-11] MEDS: aspirin 81 mg EC Tablet PO (09:07)
[2021-06-11] MEDS: sennosides-docusate Tablet 2 TAB PO (09:07)
[2021-06-11] MEDS: fluoxetine 10 mg Capsule PO (09:07)
[2021-06-11] MEDS: ropinirole 1 mg Tablet 4 MG PO (09:07)
[2021-06-11] MEDS: hyDRALAzine 25 mg Tablet 50 MG PO (09:08)
[2021-06-11] MEDS: metformin 500 mg Tablet 1000 MG PO (09:08)
[2021-06-11] MEDS: metoprolol succinate ER (24 HR) 100 mg Tablet PO (09:09)
[2021-06-11] MEDS: losartan 50 mg Tablet 100 MG PO (09:09)
[2021-06-11] MEDS: ezetimibe 10 mg Tablet PO ×2 (09:29→09:30)
[2021-06-11] MEDS: prasugrel 10 MG Tablet PO (09:30)
--- NOTE | 2021-06-11 10:59 | PC.OT ---
OT SCREEN COMPLETED. PATIENT REQUIRES ONLY SBA FOR LB DRESSING; NO FURTHER SKILLED OT REQUIRED AT THIS TIME.
[2021-06-11 12:28] LABS: Glucose Point of Care 232 mg/dL (70-110)
--- NOTE | 2021-06-11 13:19 | P.DS_ITS ---
Discharge Providers Date of Admission: 06/10/21 08:42 Date of Discharge: June 11, 2021 Attending Provider at Admission: Wilmer Demarco MD Attending Provider at Discharge: Wilmer Demarco MD Primary Care Provider: Vi Escalante MD Diagnoses at Discharge Discharge Diagnosis (1) Status post left knee replacement: Status: Acute (2) Osteoarthritis of left knee: Status: Resolved (3) COPD (chronic obstructive pulmonary disease): Status: Acute Qualifiers: COPD type: unspecified COPD Qualified Code(s): J44.9 - Chronic obstructive pulmonary disease, unspecified Reason for Visit Reason for Visit: Primary osteoarthritis left knee Hospital Course Hospital Course The patient tolerated surgery well. They remained hemodynamically stable. They was begun on aspirin and foot for DVT prophylaxis. The patient was mobilized with therapy beginning the day of surgery and by the first postoperative day independent with the walker. As the pain was adequately controlled and they were fully mobile they were discharged home. Physical Exam Narrative: EXAM NARRATIVE: On the day of discharge his knee incision was clean. They had no drainage. There is minimal swelling in the thigh and knee and the calf. No distal neurovascular deficits were noted Urinary Catheter Management^: F: Cath Placed During This Visit: yes, but has since been removed by the nurse Reason for Continuing Indwelling Catheter: Decision to DC Catheter Urinary Catheter Date of Insertion: 06/10/21 Urinary Catheter Time of Insertion: 07:15 Date Urinary Catheter Removed: 06/11/21 Time Urinary Catheter Discontinued: 06:33 Discharge Data Data Completed and Pending: Completed Studies During Hospitalization Category Date Time Status XR knee RT 1-2V 7 3560 Routine Exams 06/10/21 09:08 Completed Labs from last 24 hours 06/11/21 06/11/21 06/11/21 12:19 06:29 02:46 Hgb 11.7 POC Glucose 232 H 150 H 06/10/21 06/10/21 20:52 16:55 Hgb POC Glucose 309 H 229 H Vitals: Last Vital Signs Temp 97.6 F 06/11/21 07:00 Pulse 60 06/11/21 07:00 Resp 17 06/11/21 12:34 BP 125/70 06/11/21 09:09 Pulse Ox 93 06/11/21 07:00 Discharge Plan Discharge Patient Disposition: Home Condition: Stable Prescriptions: New oxycodone 5 mg Tablet 5 mg PO Q4H PRN (Reason: Severe Pain) 7 Days Qty: 40 RF: 0 acetaminophen 500 mg Tablet 1,000 mg PO Q8H 14 Days Qty: 84 RF: 0 gabapentin 300 mg Capsule 300 mg PO BID 7 Days Qty: 14 RF: 0 celecoxib 200 mg Capsule 200 mg PO Q12H 14 Days Qty: 28 RF: 0 Continued modafinil 200 mg tablet 200 mg PO BID RF: 0 amlodipine 10 mg tablet 10 mg PO QDAY RF: 0 glipizide 5 mg tablet 5 mg PO BID RF: 0 hydrochlorothiazide 25 mg tablet 25 mg PO QAM RF: 0 isosorbide mononitrate 60 mg tablet extended release 24 hr 60 mg PO QAM RF: 0 metoprolol succinate 100 mg tablet extended release 24 hr 100 mg PO BID RF: 0 metformin 1,000 mg tablet 1,000 mg PO BID RF: 0 Hold Instructions: Resume on 01/27/21. May take glipizide 5 mg twice daily, if the fasting blood sugar is more than 130, while being off the Metformin ezetimibe 10 mg tablet 10 mg PO DAILY 30 Days Qty: 30 RF: 5 lidocaine 3.75 % cream 1 applic topical BID RF: 0 nitroglycerin 0.4 mg tablet, sublingual 0.4 mg sublingual Q5M PRN (Reason: chest pain) 30 Days Qty: 30 RF: 3 losartan 50 mg tablet 100 mg PO DAILY 30 Days Qty: 90 RF: 5 prasugrel 10 mg tablet 10 mg PO DAILY Qty: 90 RF: 3 fluoxetine 10 mg Tablet 10 mg PO DAILY RF: 0 oxycodone-acetaminophen 5-325 mg Tablet 1 tab PO Q8H PRN (Reason: Pain) RF: 0 tamsulosin 0.4 mg Capsule 0.8 mg PO DAILY RF: 0 bupropion HCl 75 mg Tablet 75 mg PO BID RF: 0 ropinirole 1 mg tablet 4 mg PO DAILY RF: 0 aspirin 81 mg Tablet,Delayed Release (Dr/Ec) 81 mg PO DAILY Qty: 30 RF: 0 rosuvastatin [Crestor] 20 mg tablet 20 mg PO DAILY Qty: 30 RF: 0 hydralazine 25 mg tablet 50 mg PO TID 30 Days Qty: 90 RF: 3 Discontinued mupirocin 2 % ointment 1 applic topical BID Qty: 15 RF: 0 Discharge Orders: Discharge Order (Routine); Ordered 06/11/21 Ordered By: Wilmer Demarco Other Ambulatory Orders: DME: Walker (Order) Location: None Selected Ordered By: Wilmer Demarco Referrals: Wilmer Demarco MD [Physician] - 06/13/21 2:15 pm Discharge Diet: Advance as tolerated Discharge Activity: Limit activity as instructed Patient Instructions: Opioid Safety Activity Restrictions/Additional Instructions: Okay to shower Keep Tubigauze sleeve in place for swelling. Okay to remove for hygiene. Apply FirstIce up to 20 min/hr for pain and swelling Take Celebrex twice a day for the next 15 days for pain , discontinue other anti-inflammatories Take Neurontin twice a day for 7 days. Take Tylenol 500mg (1-2 tabs) as needed 3 times a day for mild pain take oxycodone for breakthrough pain not relieved by typical Percocet use.. Exercises per physical therapy. May weight-bear as tolerated on total knee arthroplasty Discharge Attestations Time Spent in Discharge Care*: other Status at Discharge: Cognitive status at discharge: cognitively intact , Behavioral status at discharge: cooperative , Quality Metrics Clinical Quality Measures During this hospital stay, did patient experience: None Coding Level of Care Code Acute [facility] [place] note Diagnoses Status post left knee replacement Z96.652 Osteoarthritis of left knee M17.12 COPD (chronic obstructive pulmonary disease) J44.9 COPD type: unspecified COPD
--- NOTE | 2021-06-11 14:42 | PC.NURSE ---
Discharge instructions, activity restrictions, medications, f/u, reviewed with patient. All questions answered.
--- NOTE | 2021-06-11 15:45 | PC.NURSE ---
Report called to Carlyn Medina RN, at [facility].
--- NOTE | 2021-06-12 12:12 | PC.SOCIAL ---
discharge follow up call made, spoke with patient. pt reports he hasn't picked up his new medications that he has pain medication at home that he is taking, which is oxycodone-acetaminophen and his pain has been under control. 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 discussed the importance of taking anti inflammatories and pain medication. pt reports he ambulated 75 feet today. pt is aware of follow up appointment with dr. corbin tomorrow. discussed using ice and elevating for pain and swelling.
--- NOTE | 2021-06-12 15:15 | PC.RESP ---
sent pulmonary rehab information
== END 2021-06-11 15:46 | disposition home or self-care (01) ==
LOC: MEDSURG 08:55
PROVIDERS: Admitting Provider Orthopaedic Surgery; PCP Family Medicine; Visit Provider Orthopaedic Surgery
PROC: (CPT 27447; principal; 2021-06-10 07:00)
DX: M17.12 Unilateral primary osteoarthritis, left knee (principal); J44.9 Chronic obstructive pulmonary disease, unspecified; I11.0 Hypertensive heart disease with heart failure; I50.9 Heart failure, unspecified; E66.01 Morbid (severe) obesity due to excess calories; Z68.41 Body mass index [BMI] 40.0-44.9, adult; E11.9 Type 2 diabetes mellitus without complications; Z82.49 Family history of ischemic heart disease and other diseases of the circulatory system
CPT/HCPCS: 27447; 36415; 36416; 51702; 64447; 73560; 76942; 80048; 82962; 85018; 85025; 94660; 96372; 97110; 97116; 97161; C1776; G0378; J0171; J0330; J0690; J1100; J1580; J1815; J1885; J2370; J2405; J2704; J2795; J3010; J3490; J7030; J7611

== ENCOUNTER 2021-07-11 06:00 | Outpatient (RCR) | payer OTHER, SELFPAY | END 2021-07-14 23:59 | disposition home or self-care (01) | LOC: TPT 06:00 | PROVIDERS: PCP Family Medicine; Referring Provider Orthopaedic Surgery; Visit Provider Orthopaedic Surgery | DX: Z47.1 Aftercare following joint replacement surgery (principal); Z96.652 Presence of left artificial knee joint | CPT/HCPCS: 97110; 97162 ==

== ENCOUNTER 2021-07-11 11:56 | Outpatient (CLI) | payer OTHER, SELFPAY ==
--- NOTE | 2021-07-11 11:59 | USCV_ITS ---
Dom Jonn Age: 66 Gender: M : 1955 Exam Date: 07/11/2021 12:18 Ordering Phys: Wilmer Demarco MD Technologist: Carlyn Elizabeth Exam Location: [facility] [place] Indication: S/P LT KNEE REPLACEMENT, LLE PAIN AND SWELLING HISTORY: Status post knee surgery. Lower extremity swelling. Lower extremity pain. PROCEDURES: Venous duplex imaging was performed in only the left lower extremity. The following venous structures were evaluated: common femoral vein, profunda vein, proximal portion of the greater saphenous vein, superficial femoral vein, and the popliteal vein. In addition, the posterior tibial and peroneal trunk were evaluated. Serial compression, augmentation maneuvers, and spectral Doppler flow evaluation were performed. FINDINGS: Normal 2-D Doppler and augmentation and compressibility throughout the lower extremity venous structures. Additional imaging through the proximal calf veins also reveals no thrombus. Limited evaluation of the greater saphenous vein is patent with no thrombus. CONCLUSIONS No DVT left lower extremity. Dr. Patti Lacey DO (Electronically Signed) Final Date: 11 July 2021 13:11 S
== END 2021-07-11 11:57 | disposition home or self-care (01) ==
LOC: RAD 11:58
PROVIDERS: PCP Family Medicine; Visit Provider Orthopaedic Surgery
DX: Z96.652 Presence of left artificial knee joint (principal); M79.605 Pain in left leg; M79.89 Other specified soft tissue disorders
CPT/HCPCS: 93971

== ENCOUNTER 2021-07-15 06:00 | Outpatient (RCR) | payer OTHER, SELFPAY | END 2021-08-06 23:59 | disposition home or self-care (01) | LOC: TPT 06:00 | PROVIDERS: PCP Family Medicine; Referring Provider Orthopaedic Surgery; Visit Provider Orthopaedic Surgery | DX: Z47.1 Aftercare following joint replacement surgery (principal); Z96.652 Presence of left artificial knee joint | CPT/HCPCS: 97110; 97140; 97164 ==

== ENCOUNTER → 2021-08-06 09:07 | Outpatient (BNVA) | payer OTHER, SELFPAY | PROVIDERS: PCP Family Medicine; Visit Provider Orthopaedic Surgery | DX: Z96.652 Presence of left artificial knee joint (principal); M17.11 Unilateral primary osteoarthritis, right knee; M25.469 Effusion, unspecified knee | CPT/HCPCS: 73560; 73565 ==

== ENCOUNTER → 2021-10-01 09:31 | Outpatient (BNVA) | payer OTHER, SELFPAY | PROVIDERS: PCP Family Medicine; Visit Provider Orthopaedic Surgery | DX: Z01.812 Encounter for preprocedural laboratory examination (principal); Z20.822 Contact with and (suspected) exposure to COVID-19; Z96.652 Presence of left artificial knee joint; M17.11 Unilateral primary osteoarthritis, right knee | CPT/HCPCS: 87635 ==

== ENCOUNTER 2021-10-07 13:09 | Observation (INO) | payer OTHER, SELFPAY ==
[2021-10-02 12:24] VITALS: BMI 41.3
[2021-10-02 12:52] LABS: Basophils # 0.1 10^3/uL (0.0-0.1); Basophils % 0.9 %; Eosinophils # 0.4 10^3/uL (0.0-0.8); Eosinophils % 4.6 %; Hematocrit 35.9 % (42.0-52.0); Hemoglobin 11.8 g/dL (11.7-16.6); Lymphocytes # 1.6 10^3/uL (0.8-4.8); Lymphocytes % 17.3 %; Mean Corpuscular HGB Conc 32.9 g/dL (30.0-36.0); Mean Corpuscular Hemoglobin 29.3 pg (28.0-34.0); Mean Corpuscular Volume 89.1 fl (80-94); Mean Platelet Volume 9.6 fL (7.4-10.4); Monocytes # 0.7 10^3/uL (0.2-0.9); Monocytes % 7.1 %; Neutrophils # 6.49 10^3/uL (1.8-7.7); Neutrophils % 69.8 %; Nucleated Red Blood Cells % 0 %; Platelet Count 302 10^3/cmm (130-400); Red Blood Count 4.03 10^6/uL (4.1-5.3); Red Cell Distribution Width 13.9 % (12.1-15.1); White Blood Count 9.3 10^3/uL (4.0-10.0)
[2021-10-02 13:08] LABS: Anion Gap 18.2 (5-19); Blood Urea Nitrogen 11 mg/dL (8-23); Calcium 8.4 mg/dL (8.5-10.5); Carbon Dioxide 22 mmol/L (22-29); Chloride 95 mmol/L (98-107); Creatinine Clr Calc Pharmacy 121.3833; Glomerular Filtration Rate 113.2 mL/min (90-130); Glucose 254 mg/dL (65-115); Osmolality Calculated 280 mOsm/kg (285-295); Potassium 4.2 mmol/L (3.5-5.1); Sodium 131 mmol/L (136-145)
--- NOTE | 2021-10-02 13:15 | P.ANESASSM_ITS ---
Pre-Anesthetic Assessment Pre-Anesthetic Assessment: Height/Weight: Height 1.75 m Weight 127.006 kg Preop Diagnosis: Osteoarthritis Left knee Proposed Procedure: Operation Date: 10/07/21 09:30 Proposed Procedures p Total Knee Arthroplasty 54792 M17.11(Right) - Wilmer Demarco MD Was Beta Macario taken within 24 hours: Yes Was Clonidine taken within 24 hours: N/A Social: Social History: No alcohol and No tobacco Exam: Pre-Anes Outpt Exam: alert, oriented x 3 and regular rate & rhythm Additional Exam Findings (including area of procedure): rhonchi Airway: Submandibular: WNL Cervical ROM: WNL MP: 2 Dentition: False Pulmonary: Pulmonary: COPD CV/HEM: CV/HEM: CAD (Stents on Effient), CHF and HTN Comments: Anticoagulated (needs to be contd per Cards)--had knee replacement few months ago without issue Metabolic: Metabolic: DM, Hyperlipidemia and Morbid obesity Musc/skel: Musc/skel: OA/DJD Anesthetic Plan: ASA status: 3 Anesthesia: General and Regional (specify below) (Adductor blk) Risk of > 500 ml blood loss (7ml/kg in children): Yes, adequate IV access and fluids planned PFSH Anesthesia PFSH: Medical History Abdominal pain Atherosclerotic heart disease Chest pain Chest pain Congestive heart failure Diabetes type 2, controlled KANG (dyspnea on exertion) Dyslipidemia (high LDL; low HDL) Hypertension Obesity (BMI 30-39.9) Osteoarthritis of knees, bilateral Osteoarthritis of left knee Mr. Fernandes has severe osteoarthritis in the left knee. He has significant functional limitation is a failed surgery. He has previously been counseled regarding total knee. Clearances have been obtained and he is willing to proceed. We will set him up for total knee replacement. He was received a [place] cruciate retaining press-fit total knee arthroplasty. There are no contraindications to TXA. We will managed with aspirin and foot pumps for DVT prophylaxis. He can avoid stairs at home. His is prepared to assist him with surgery postoperatively. Smoking addiction 5 PPD for 35 years staarted cutting back 1 year ago- now 1PPD Surgical History H/O heart artery stent History of cholecystectomy Family History Mother CAD (coronary artery disease) Dementia Brother CAD (coronary artery disease) Father CAD (coronary artery disease) Lung disease Sister Cancer Other Family history of premature coronary artery disease Hyperlipidemia Hypertension Denies family history of Diabetes Clotting disorder Chronic kidney disease (CKD) Suicide Anesthesia complication Bleeding disorder Stroke Social History Alcohol intake: never Data Anesthesia CBC & Chem 7: 10/02/21 12:40 10/02/21 12:40 Other Labs: Laboratory Results - last 48 hr 10/02/21 10/02/21 12:40 12:40 WBC 9.3 RBC 4.03 L Hgb 11.8 Hct 35.9 L MCV 89.1 MCH 29.3 MCHC 32.9 RDW 13.9 Plt Count 302 MPV 9.6 Neut % (Auto) 69.8 Lymph % (Auto) 17.3 [place] % (Auto) 7.1 Eos % (Auto) 4.6 Baso % (Auto) 0.9 Neut # (Auto) 6.49 Lymph # (Auto) 1.6 [place] # (Auto) 0.7 Eos # (Auto) 0.4 Baso # (Auto) 0.1 Nucleated RBC % (auto) 0 Nucleated RBCs # 0.0 Potassium 4.2 Carbon Dioxide 22 Anion Gap 18.2 BUN 11 Creatinine 0.7 GFR Calculation 113.2 Cardiac Studies: Echocardiogram Ultrasound 01/31/21 Sestamibi Stress Test (Cardiology) 12/31/20
[2021-10-07] VITALS (31 sets, daily range): BP systolic 113–172; BP diastolic 50–78; PULSE 68–79; RESP 15–26; TEMP 36.3–37.2; O2SAT 91–97
[2021-10-07] MEDS: acetaminophen 500 mg Tablet 1000 MG PO ×2 (08:27→16:06)
[2021-10-07] MEDS: oxyCODONE 20 mg ER (12 HR) Tablet PO (08:28)
[2021-10-07] MEDS: gabapentin 300 mg Capsule PO ×2 (08:28→21:40)
[2021-10-07] MEDS: CELEcoxib 200 mg Capsule 400 MG PO (08:28)
[2021-10-07] MEDS: sodium chloride 0.9% 1,000 ML 30 ML IV (08:30)
--- NOTE | 2021-10-07 09:04 | P.ANESUD_ITS ---
Pre-Anesthetic Update Pre-Anesthetic Assessment: Date of Surgery/Procedure: 10/07/21 Preop Ladan gnosis: Osteoarthritis Right knee Proposed Procedure: Operation Date: 10/07/21 09:30 Proposed Procedures p Total Knee Arthroplasty 15903 M17.11(Right) - Wilmer Demarco MD Any changes to Pre-Anesthetic Assessment?: No Last Intake: Intake Last Liquid Date 10/06/21 Last Liquid Time 21:30 Last Solid Date 10/06/21 Last Solid Time 18:30 Vitals: Temperature 97.8 F 10/07/21 08:10 Temperature Source Temporal Artery S can 10/07/21 08:10 Pulse Rate 79 10/07/21 08:10 Respiratory Rate 15 10/07/21 08:28 Respiratory Effort 10/07/21 08:28 Respiratory Depth Normal 10/07/21 08:28 Respiratory Patter n 10/07/21 08:28 Blood Pressure 172/78 10/07/21 08:10 Blood Pressure Elizabeth n 109 10/07/21 08:10 Pulse Oximetry 96 10/07/21 08:28 Oxygen Delivery Me thod 10/07/21 08:10 Exam: Pre-Anes Outpt Exam: alert, oriented x 3, clear to auscultation bilaterally and regular rate & rhythm Other Pertinent Information: Other Pertinent Information: Patient took metoprolol today. Prefers general over spinal. Declines adductor canal block. Cardiac Studies: Echocardiogram Ultrasound 01/31/21 Sestamibi Stress Test (Cardiology) 12/31/20
--- NOTE | 2021-10-07 09:45 | W.PM.OPSUD ---
Surgery/Procedure H&P Update DATE OF PROCEDURE: October 07, 2021 DATE H&P PERFORMED: 10/02/21 H&P UPDATE INFORMATION: I have reviewed H&P completed within last 30 days PREOP DIAGNOSIS: Osteoarthritis Right knee PLANNED PROCEDURE: Operation Date: 10/07/21 09:30 Proposed Procedures p Total Knee Arthroplasty 14410 M17.11(Right) - Wilmer Demarco MD
[2021-10-07] MEDS: vancomycin 1,500 MG/300 ML PIGGYBACK 200 MG IV (10:00)
[2021-10-07] MEDS: tranexamic acid 1,000 mg/10mL SDV 1000 MG IV (10:25)
[2021-10-07] MEDS: EPINEPHrine 1 mg/mL INJ XX (10:42)
[2021-10-07] MEDS: ketorolac 30 mg/mL INJ XX (10:43)
[2021-10-07] MEDS: sodium chloride 0.9% 100 mL Bag XX (10:43)
[2021-10-07] MEDS: tranexamic acid 1,000 mg/10mL SDV 1000 MG XX (10:44)
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
--- NOTE | 2021-10-07 12:02 | XR_ITS ---
WS: [id number] KNEE RIGHT TECHNIQUE: 2 views of the right knee CLINICAL INFORMATION: Right Total Knee arthroplasty COMPARISON: None. FINDINGS: Postoperative changes right TKA. Hardware appears in good position well seated. Postoperati ve changes soft tissue edema with air and fluid in the suprapatellar bursa. Normal scattered pockets of postoperative subcutaneous air. Patella hardware appears well seated. XR/XR knee RT 1-2V [id number] IMPRESSION: Right TKA normal for postoperative purposes. Kellgren-Martin Classification: NA
--- NOTE | 2021-10-07 12:03 | P.PCN_ITS ---
PACU note PACU note: VSS, Good respiratory effort, report to DAY CAMP UNIT LEADER Post-Anesthesia Exam: awake
--- NOTE | 2021-10-07 12:03 | PM.PACU ---
PACU note PACU note: VSS, Good respiratory effort, report to SUPERVISOR GRINDING Post-Anesthesia Exam: awake
[2021-10-07] MEDS: fentaNYL 50 mcg/mL INJ 2mL IVP (12:22)
--- NOTE | 2021-10-07 12:55 | ANES.PROC ---
Anesthesia Procedures Procedure/Date: 10/07/21 Nerve Block ^: Nerve Block 1: Main Anesthesia: general anesthesia Time Out Performed: Yes Consent: requested by attending/covering physician, from patient, patient agrees to proceed and other (Consent obtained from Talia after patient requested post op to have the block. ) Nerve block location: adductor canal Anesthesia monitors applied: pulse oximetry, EKG, BP cuff and oxygen Nerve block position: supine Anesthetic Used: bupivacaine 0.5% Amount of anesthesia used (mL): 20 Ultrasound used to: recognize landmarks, visualize and ID brachial plexus and visualize and ID femerol nerve Nerve Stimulator Used?: No Interscalene/Femoral BLK: 4 stimuplex 21 g needle used for position and inplane approach, visualize local anesthetic spread and no vascular puncture identified Injection: neg aspiration of heme Patient Tolerated Procedure: well and no complications Complications: none Additional Comments: After time out patient prepped, sterile technique. Using real time US visualization of target, needle entry, and LA spread a total of 20 cc of LA was incrementally injected with negative aspiration every 5 cc. Good block tolerated well.
[2021-10-07] MEDS: oxyCODONE 5 mg IR Tab/Cap 10 MG PO ×3 (13:42→22:58)
--- NOTE | 2021-10-07 14:48 | ANE.PACU2 ---
Inpatient post-anesthesia follow up: Airway intact: Yes Vital signs: Temperature 98.9 F Pulse Rate 70 Respiratory Rate 25 Blood Pressure 142/72 Pulse Oximetry 93 Oxygen Delivery Me thod Nasal Cannula Oxygen Flow Rate 3 Fraction of Inspir ed Oxygen Hydration adequate: Yes Nausea and vomiting: No Pain level: 7 Pain level: Rescue block performed. Mental status: Baseline
[2021-10-07] MEDS: sodium chloride 0.9% 1,000 ML 100 ML IV (16:06)
[2021-10-07] MEDS: hyDRALAzine 50 mg Tablet PO ×2 (16:06→21:29)
[2021-10-07 17:28] LABS: Glucose Point of Care 234 mg/dL (70-110)
[2021-10-07] MEDS: insulin lispro 100 unit/1 mL SUBCUT ×2 (17:47→21:40)
[2021-10-07] MEDS: metoprolol succinate ER (24 HR) 100 mg Tablet PO (18:18)
[2021-10-07 21:21] LABS: Glucose Point of Care 184 mg/dL (70-110)
[2021-10-07] MEDS: CELEcoxib 200 mg Capsule PO (21:28)
--- NOTE | 2021-10-07 23:50 | PC.NURSE ---
Patient sleeps at home with a CPAP machine. Call placed to MD on 10/07/21 at 2306 to request an order for CPAP for when patient is sleeping. No answer, Voicemail left. Respiratory was also called to request the service. Respiratory called back at 2347 and stated they put the order in for the CPAP and the CPAP was now in place.
[2021-10-08] VITALS (7 sets, daily range): BP systolic 116–141; BP diastolic 68–72; PULSE 63–82; RESP 13–24; TEMP 36.6–37.1; O2SAT 96–97
[2021-10-08] MEDS: acetaminophen 500 mg Tablet 1000 MG PO ×2 (00:30→07:48)
[2021-10-08] MEDS: sodium chloride 0.9% 1,000 ML 100 ML IV (02:26)
[2021-10-08] MEDS: oxyCODONE 5 mg IR Tab/Cap 10 MG PO ×2 (03:10→07:36)
[2021-10-08] MEDS: prasugrel 10 MG Tablet PO (07:34)
[2021-10-08] MEDS: metoprolol succinate ER (24 HR) 100 mg Tablet PO (07:34)
[2021-10-08] MEDS: ropinirole 2 mg Tablet 4 MG PO (07:35)
[2021-10-08] MEDS: isosorbide mononitrate ER 60 mg Tablet PO (07:35)
[2021-10-08] MEDS: CELEcoxib 200 mg Capsule PO (07:36)
[2021-10-08] MEDS: fluoxetine 10 mg Capsule PO (07:36)
[2021-10-08] MEDS: gabapentin 300 mg Capsule PO (07:36)
[2021-10-08] MEDS: tamsulosin 0.4 mg Capsule 0.8 MG PO (07:37)
[2021-10-08] MEDS: hyDRALAzine 50 mg Tablet PO (07:37)
[2021-10-08] MEDS: ezetimibe 10 mg Tablet PO (07:37)
[2021-10-08] MEDS: hydroCHLOROthiazide 25 mg Tablet PO (07:38)
[2021-10-08] MEDS: aspirin 81 mg EC Tablet PO (07:38)
[2021-10-08] MEDS: losartan 50 mg Tablet 100 MG PO (07:47)
[2021-10-08] MEDS: amlodipine 10 mg Tablet PO (07:47)
--- NOTE | 2021-10-08 07:48 | PM.DCS ---
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 Fernandes is a 66-year-old male with incapacitating pain and functional loss due to osteoarthritis of the right knee admitted for elective right total knee arthroplasty. Hospital Course Hospital Course The patient tolerated surgery well. They remained hemodynamically stable. They was begun on aspirin and foot pumpsfor DVT prophylaxis. The patient was mobilized with therapy beginning the day of surgery and by the first postoperative day independent with the walker. As the pain was adequately controlled and they were fully mobile they were discharged home. Physical Exam Narrative: EXAM NARRATIVE: On the day of discharge the knee incision was clean. They had no drainage. There is minimal swelling in the thigh and knee and the calf. No distal neurovascular deficits were noted Urinary Catheter Management^: Loving: Cath Placed During This Visit: yes Reason for Continuing Indwelling Catheter: Perioperative Use in Selected Surgeries Urinary Catheter Date of Insertion: 10/07/21 Urinary Catheter Time of Insertion: 10:20 Discharge Data Data Completed and Pending: Completed Studies During Hospitalization Category Date Time Status XR knee RT 1-2V 7 [id number] Routine Exams 10/07/21 12:02 Completed Pending at discharge Category Date Time Status Hemoglobin AM LAB S Lab 10/08/21 04:00 Ordered Labs from last 24 hours 10/07/21 10/07/21 21:17 17:24 POC Glucose 184 H 234 H Procedures Performed: Right total knee arthroplasty Vitals: Last Vital Signs Temp 98.2 F 10/08/21 04:00 Pulse 63 10/08/21 04:00 Resp 24 H 10/08/21 07:36 BP 118/71 10/08/21 04:00 Pulse Ox 97 10/08/21 04:00 Discharge Plan Discharge Patient Disposition: Home Condition: Stable Prescriptions: New acetaminophen 500 mg Tablet 1,000 mg PO Q8H 14 Days Qty: 84 0RF celecoxib 200 mg Capsule 200 mg PO Q12H 14 Days Qty: 28 0RF gabapentin 300 mg Capsule 300 mg PO BID@0900,2100 7 Days Qty: 14 0RF Continued modafinil 200 mg tablet 200 mg PO BID 0RF amlodipine 10 mg tablet 10 mg PO QDAY 0RF glipizide 5 mg tablet 5 mg PO BID 0RF hydrochlorothiazide 25 mg tablet 25 mg PO QAM 0RF isosorbide mononitrate 60 mg tablet extended release 24 hr 60 mg PO QAM 0RF metoprolol succinate 100 mg tablet extended release 24 hr 100 mg PO BID 0RF metformin 1,000 mg tablet 1,000 mg PO BID 0RF Hold Instructions: Resume on 01/27/21. May take glipizide 5 mg twice daily, if the fasting blood sugar is more than 130, while being off the Metformin ezetimibe 10 mg tablet 10 mg PO DAILY 30 Days Qty: 30 5RF prasugrel 10 mg tablet 10 mg PO DAILY Qty: 30 0RF nitroglycerin 0.4 mg tablet, sublingual 0.4 mg sublingual Q5M PRN (Reason: chest pain) 30 Days Qty: 30 3RF Rx Instructions: until response; do not exceed 3 doses per episode losartan 50 mg tablet 100 mg PO DAILY 30 Days Qty: 90 5RF fluoxetine 10 mg Tablet 10 mg PO DAILY 0RF oxycodone-acetaminophen 5-325 mg Tablet 1 tab PO Q8H PRN (Reason: Pain) 0RF tamsulosin 0.4 mg Capsule 0.8 mg PO DAILY 0RF bupropion HCl 75 mg Tablet 75 mg PO BID 0RF ropinirole 1 mg tablet 4 mg PO DAILY 0RF aspirin 81 mg Tablet,Delayed Release (Dr/Ec) 81 mg PO DAILY Qty: 30 0RF rosuvastatin [Crestor] 20 mg tablet 20 mg PO DAILY Qty: 30 0RF hydralazine 25 mg tablet 50 mg PO TID 30 Days Qty: 90 3RF Discharge Orders: Discharge Order (Routine); Ordered 10/08/21 Ordered By: Wilmer Demarco Referrals: [facility] [Other] Wilmer Demarco MD [Physician] - 10/11/21 8:15 am Discharge Diet: Advance as tolerated Discharge Activity: Limit activity as instructed Patient Instructions: Opioid Safety Activity Restrictions/Additional Instructions: Okay to shower Keep Tubigauze sleeve in place for swelling. Okay to remove for hygiene. Apply FirstIce up to 20 min/hr for pain and swelling Take Celebrex twice a day for the next 15 days for pain , discontinue other anti-inflammatories Take Neurontin twice a day for 7 days. Take Tylenol 500mg (1-2 tabs) as needed 3 times a day for mild pain take oxycodone for breakthrough pain prescribed through pain clinic Exercises per physical therapy. 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
[2021-10-08 07:53] LABS: Glucose Point of Care 170 mg/dL (70-110)
[2021-10-08] MEDS: insulin lispro 100 unit/1 mL SUBCUT (07:54)
== END 2021-10-08 12:40 | disposition home or self-care (01) ==
LOC: OBGYN 13:12
PROVIDERS: Anesthesiology; Admitting Provider Orthopaedic Surgery; PCP Family Medicine; Visit Provider Orthopaedic Surgery
PROC: (CPT 27447; principal; 2021-10-07 09:10)
DX: M17.11 Unilateral primary osteoarthritis, right knee (principal); E66.01 Morbid (severe) obesity due to excess calories; Z68.41 Body mass index [BMI] 40.0-44.9, adult; E11.65 Type 2 diabetes mellitus with hyperglycemia; Z79.84 Long term (current) use of oral hypoglycemic drugs; J44.9 Chronic obstructive pulmonary disease, unspecified; I25.10 Atherosclerotic heart disease of native coronary artery without angina pectoris; Z95.5 Presence of coronary angioplasty implant and graft; I11.0 Hypertensive heart disease with heart failure; I50.9 Heart failure, unspecified; E78.5 Hyperlipidemia, unspecified; Z82.49 Family history of ischemic heart disease and other diseases of the circulatory system
CPT/HCPCS: 27447; 36415; 36416; 51702; 64447; 73560; 76942; 80048; 82962; 85025; 94660; 96372; 97110; 97116; 97161; 97165; 97530; C1776; G0378; J0171; J0330; J0690; J1100; J1580; J1815; J1885; J2250; J2370; J2405; J2704; J2795; J3010; J3370; J3490; J7030

== ENCOUNTER → 2021-10-30 08:51 | Outpatient (BNVA) | payer OTHER, SELFPAY | PROVIDERS: PCP Family Medicine; Visit Provider Orthopaedic Surgery | DX: M17.11 Unilateral primary osteoarthritis, right knee (principal); Z96.653 Presence of artificial knee joint, bilateral | CPT/HCPCS: 73560; 73565 ==

== ENCOUNTER 2021-11-12 06:00 | Outpatient (RCR) | payer OTHER, SELFPAY | END 2021-11-28 23:59 | disposition home or self-care (01) | LOC: TPT 06:00 | PROVIDERS: PCP Family Medicine; Referring Provider Orthopaedic Surgery; Visit Provider Orthopaedic Surgery | DX: Z47.1 Aftercare following joint replacement surgery (principal); Z96.651 Presence of right artificial knee joint | CPT/HCPCS: 97110; 97140; 97162 ==

== ENCOUNTER 2021-11-13 17:57 | Emergency (ER) | payer OTHER, MEDICARE, SELFPAY ==
[2021-11-13 18:28] VITALS: BP 200/79; PULSE 89; RESP 24; TEMP 37.3; O2SAT 94; BMI 44.3
--- NOTE | 2021-11-13 18:54 | CTR_ITS ---
PROCEDURE INFORMATION: Exam: CTA Chest With Contrast Exam date and time: 11/13/2021 6:54 PM Age: 66 years old Clinical indication: Shortness of breath; Prior surgery; Surgery type: Coronary stents. ; Patient HX: C/O chest discomfort. Positive for dvt with elevated d dimer. Exam; Additional info: Cp TECHNIQUE: Imaging protocol: Computed tomographic angiography of the chest with contrast. 3D rendering (Not supervised by radiologist): MIP and/or 3D reconstructed images were created by the technologist. Radiation optimization: All CT scans at this facility use at least one of these dose optimization techniques: automated exposure control; mA and/or kV adjustment per patient size (includes targeted exams where dose is matched to clinical indication); or iterative reconstruction. Contrast material: OMNI 350; Contrast volume: 113 ml; Contrast route: INTRAVENOUS (IV); COMPARISON: CT angio chest w abd pel w con 01/30/2021 10:35 PM RADIATION DOSE METRICS: Total DLP (mGy-cm): 1227.07 FINDINGS: Pulmonary arteries: Normal. No pulmonary emboli. Aorta: Unremarkable. No aortic aneurysm. No aortic dissection. Lungs: Unremarkable. No consolidation. No masses. Pleural spaces: Unremarkable. No pneumothorax. No pleural effusion. Heart: Unremarkable. No cardiomegaly. No pericardial effusion. Lymph nodes: Unremarkable. No enlarged lymph nodes. Bones/joints: Unremarkable. No acute fracture. Soft tissues: Unremarkable. CT/CT angio chest PE protcl [id number] IMPRESSION: No acute findings.
--- NOTE | 2021-11-13 19:28 | ED_ITS ---
HPI - General Adult General: Chief complaint: General Medical Stated complaint: [facility] Time Seen by Provider: 11/13/21 19:28 [facility] ED PFSH: Medical History Abdominal pain Atherosclerotic heart disease Chest pain Chest pain Congestive heart failure Diabetes type 2, controlled KANG (dyspnea on exertion) Dyslipidemia (high LDL; low HDL) Hypertension Obesity (BMI 30-39.9) Osteoarthritis of knees, bilateral Osteoarthritis of left knee Mr. Fernandes has severe osteoarthritis in the left knee. He has significant functional limitation is a failed surgery. He has previously been counseled regarding total knee. Clearances have been obtained and he is willing to proceed. We will set him up for total knee replacement. He was received a Bang cruciate retaining press-fit total knee arthroplasty. There are no contraindications to TXA. We will managed with aspirin and foot pumps for DVT prophylaxis. He can avoid stairs at home. His is prepared to assist him with surgery postoperatively. Smoking addiction 5 PPD for 35 years staarted cutting back 1 year ago- now 1PPD Surgical History H/O heart artery stent History of cholecystectomy Family History Mother CAD (coronary artery disease) Dementia Brother CAD (coronary artery disease) Father CAD (coronary artery disease) Lung disease Sister Cancer Other Family history of premature coronary artery disease Hyperlipidemia Hypertension Denies family history of Diabetes Clotting disorder Chronic kidney disease (CKD) Suicide Anesthesia complication Bleeding disorder Stroke Social History Smoking and tobacco status: former smoker (3 months) Alcohol intake: never Course Vital Signs: Vital signs: Vital Signs Temperature 99.2 F 11/13/21 18:28 Pulse Rate 89 11/13/21 18:28 Respiratory Rate 24 H 11/13/21 18:28 Blood Pressure 200/79 11/13/21 18:28 Pulse Oximetry 94 11/13/21 18:28 Discharge Plan Discharge Condition: Stable Prescriptions: No Action modafinil 200 mg tablet 200 mg PO BID 0RF amlodipine 10 mg tablet 10 mg PO QDAY 0RF glipizide 5 mg tablet 5 mg PO BID 0RF hydrochlorothiazide 25 mg tablet 25 mg PO QAM 0RF isosorbide mononitrate 60 mg tablet extended release 24 hr 60 mg PO QAM 0RF metoprolol succinate 100 mg tablet extended release 24 hr 100 mg PO BID 0RF metformin 1,000 mg tablet 1,000 mg PO BID 0RF Hold Instructions: Resume on 01/27/21. May take glipizide 5 mg twice daily, if the fasting blood sugar is more than 130, while being off the Metformin ezetimibe 10 mg tablet 10 mg PO DAILY 30 Days Qty: 30 5RF prasugrel 10 mg tablet 10 mg PO DAILY Qty: 30 0RF nitroglycerin 0.4 mg tablet, sublingual 0.4 mg sublingual Q5M PRN (Reason: chest pain) 30 Days Qty: 30 3RF Rx Instructions: until response; do not exceed 3 doses per episode losartan 50 mg tablet 100 mg PO DAILY 30 Days Qty: 90 5RF fluoxetine 10 mg Tablet 10 mg PO DAILY 0RF oxycodone-acetaminophen 5-325 mg Tablet 1 tab PO Q8H PRN (Reason: Pain) 0RF tamsulosin 0.4 mg Capsule 0.8 mg PO DAILY 0RF bupropion HCl 75 mg Tablet 75 mg PO BID 0RF ropinirole 1 mg tablet 4 mg PO DAILY 0RF aspirin 81 mg Tablet,Delayed Release (Dr/Ec) 81 mg PO DAILY Qty: 30 0RF rosuvastatin [Crestor] 20 mg tablet 20 mg PO DAILY Qty: 30 0RF hydralazine 25 mg tablet 50 mg PO TID 30 Days Qty: 90 3RF Referrals: Vi Escalante MD [Primary Care Provider] - Coding Level 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
--- NOTE | 2021-11-13 19:58 | ED_ITS ---
HPI - General Adult General: Chief complaint: General Medical Stated complaint: [facility] Time Seen by Provider: 11/13/21 19:28 [facility] ED PFSH: Medical History Abdominal pain Atherosclerotic heart disease Chest pain Chest pain Congestive heart failure Diabetes type 2, controlled KANG (dyspnea on exertion) Dyslipidemia (high LDL; low HDL) Hypertension Obesity (BMI 30-39.9) Osteoarthritis of knees, bilateral Osteoarthritis of left knee Mr. Fernandes has severe osteoarthritis in the left knee. He has significant functional limitation is a failed surgery. He has previously been counseled regarding total knee. Clearances have been obtained and he is willing to proceed. We will set him up for total knee replacement. He was received a Bang cruciate retaining press-fit total knee arthroplasty. There are no contraindications to TXA. We will managed with aspirin and foot pumps for DVT prophylaxis. He can avoid stairs at home. His is prepared to assist him with surgery postoperatively. Smoking addiction 5 PPD for 35 years staarted cutting back 1 year ago- now 1PPD Surgical History H/O heart artery stent History of cholecystectomy Family History Mother CAD (coronary artery disease) Dementia Brother CAD (coronary artery disease) Father CAD (coronary artery disease) Lung disease Sister Cancer Other Family history of premature coronary artery disease Hyperlipidemia Hypertension Denies family history of Diabetes Clotting disorder Chronic kidney disease (CKD) Suicide Anesthesia complication Bleeding disorder Stroke Social History Smoking and tobacco status: former smoker (3 months) Alcohol intake: never Course Vital Signs: Vital signs: Vital Signs Temperature 99.2 F 11/13/21 18:28 Pulse Rate 89 11/13/21 18:28 Respiratory Rate 24 H 11/13/21 18:28 Blood Pressure 200/79 11/13/21 18:28 Pulse Oximetry 94 11/13/21 18:28 Discharge Plan Discharge Condition: Stable Prescriptions: No Action modafinil 200 mg tablet 200 mg PO BID 0RF amlodipine 10 mg tablet 10 mg PO QDAY 0RF glipizide 5 mg tablet 5 mg PO BID 0RF hydrochlorothiazide 25 mg tablet 25 mg PO QAM 0RF isosorbide mononitrate 60 mg tablet extended release 24 hr 60 mg PO QAM 0RF metoprolol succinate 100 mg tablet extended release 24 hr 100 mg PO BID 0RF metformin 1,000 mg tablet 1,000 mg PO BID 0RF Hold Instructions: Resume on 01/27/21. May take glipizide 5 mg twice daily, if the fasting blood sugar is more than 130, while being off the Metformin ezetimibe 10 mg tablet 10 mg PO DAILY 30 Days Qty: 30 5RF prasugrel 10 mg tablet 10 mg PO DAILY Qty: 30 0RF nitroglycerin 0.4 mg tablet, sublingual 0.4 mg sublingual Q5M PRN (Reason: chest pain) 30 Days Qty: 30 3RF Rx Instructions: until response; do not exceed 3 doses per episode losartan 50 mg tablet 100 mg PO DAILY 30 Days Qty: 90 5RF fluoxetine 10 mg Tablet 10 mg PO DAILY 0RF oxycodone-acetaminophen 5-325 mg Tablet 1 tab PO Q8H PRN (Reason: Pain) 0RF tamsulosin 0.4 mg Capsule 0.8 mg PO DAILY 0RF bupropion HCl 75 mg Tablet 75 mg PO BID 0RF ropinirole 1 mg tablet 4 mg PO DAILY 0RF aspirin 81 mg Tablet,Delayed Release (Dr/Ec) 81 mg PO DAILY Qty: 30 0RF rosuvastatin [Crestor] 20 mg tablet 20 mg PO DAILY Qty: 30 0RF hydralazine 25 mg tablet 50 mg PO TID 30 Days Qty: 90 3RF Referrals: Vi Escalante MD [Primary Care Provider] - Coding 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
--- NOTE | 2021-11-13 20:02 | USR_ITS ---
PROCEDURE INFORMATION: Exam: US Duplex Right Lower Extremity Veins, Limited Exam date and time: 11/13/2021 8:02 PM Age: 66 years old Clinical indication: Swelling (edema) of limb; Lower extremity, right; Prior surgery; Surgery date: 1-6 months; Patient HX: PT [place] from [place] following knee surgery approx. 1.5 months prior for swelling of the RT le; Additional info: Leg swelling TECHNIQUE: Imaging protocol: Real-time Duplex ultrasound of the Right Lower Extremity with 2-D bhatt scale, color Doppler flow and spectral waveform analysis with image documentation. Limited exam was focused on the right lower extremity veins. COMPARISON: US Testicular [id number] 04/23/2020 10:06 AM FINDINGS: Right deep veins: Unremarkable. The common femoral, femoral, proximal profunda femoral and popliteal veins are patent without thrombus. Normal Doppler waveforms. Normal compressibility and/or augmentation response. Right superficial veins: Unremarkable. Saphenofemoral junction is patent without thrombus. Soft tissues: Unremarkable. US/[place] [id number] IMPRESSION: No evidence of right lower extremity deep vein thrombosis.
[2021-11-13 20:30] LABS: Basophils # 0.1 10^3/uL (0.0-0.1); Basophils % 0.9 %; Eosinophils # 0.6 10^3/uL (0.0-0.8); Eosinophils % 6.2 %; Hematocrit 36.4 % (42.0-52.0); Hemoglobin 11.3 g/dL (11.7-16.6); Lymphocytes # 2.1 10^3/uL (0.8-4.8); Lymphocytes % 21.6 %; Mean Corpuscular Hemoglobin 28.3 pg (28.0-34.0); Mean Corpuscular Volume 91.2 fl (80-94); Mean Platelet Volume 9.1 fL (7.4-10.4); Monocytes # 0.9 10^3/uL (0.2-0.9); Monocytes % 9.1 %; Neutrophils # 5.88 10^3/uL (1.8-7.7); Neutrophils % 61.8 %; Nucleated Red Blood Cells % 0 %; Platelet Count 376 10^3/cmm (130-400); Red Blood Count 3.99 10^6/uL (4.1-5.3); Red Cell Distribution Width 13.9 % (12.1-15.1); White Blood Count 9.5 10^3/uL (4.0-10.0)
--- NOTE | 2021-11-13 20:44 | ED_ITS ---
HPI - General Adult General: Chief complaint: General Medical Stated complaint: sent by [facility] due to labs Time Seen by Provider: 11/13/21 19:28 Source: patient Mode of arrival: ambulatory Limitations: no limitations History of Present Illness: 66-year-old male who states that he is sent here from the [facility] to rule out a blood clot. He did have right knee replacement last month states he had some slight swelling to the right lower leg. Patient had a D-dimer drawn at the [facility] that was elevated sent here. He denies any chest pain denies any shortness of breath has some slight leg pain denies any fevers. PFSH ED PFSH: Medical History Abdominal pain Atherosclerotic heart disease Chest pain Chest pain Congestive heart failure Diabetes type 2, controlled KANG (dyspnea on exertion) Dyslipidemia (high LDL; low HDL) Hypertension Obesity (BMI 30-39.9) Osteoarthritis of knees, bilateral Osteoarthritis of left knee Mr. Fernandes has severe osteoarthritis in the left knee. He has significant functional limitation is a failed surgery. He has previously been counseled regarding total knee. Clearances have been obtained and he is willing to proceed. We will set him up for total knee replacement. He was received a Bang cruciate retaining press-fit total knee arthroplasty. There are no contraindications to TXA. We will managed with aspirin and foot pumps for DVT prophylaxis. He can avoid stairs at home. His is prepared to assist him with surgery postoperatively. Smoking addiction 5 PPD for 35 years staarted cutting back 1 year ago- now 1PPD Surgical History H/O heart artery stent History of cholecystectomy Family History Mother CAD (coronary artery disease) Dementia Brother CAD (coronary artery disease) Father CAD (coronary artery disease) Lung disease Sister Cancer Other Family history of premature coronary artery disease Hyperlipidemia Hypertension Denies family history of Diabetes Clotting disorder Chronic kidney disease (CKD) Suicide Anesthesia complication Bleeding disorder Stroke Social History Smoking and tobacco status: former smoker (3 months) Alcohol intake: never Physical Exam Const: COMMON NORMALS: no acute distress, patient oriented x3 and healthy appearing HENMT: COMMON NORMALS: normocephalic and atraumatic HEAD & SCALP: normocephalic and atraumatic Eye: COMMON NORMALS: Equal, round and reactive pupils present and EOMs intact bilaterally PUPIL: Yes Equal, round and reactive pupils present Neck/C-Spine: COMMON NORMALS: full ROM and supple Chest: COMMONS NORMALS: normal inspection of the chest and normal palpation of entire chest wall Resp: COMMON NORMALS: normal respiratory effort, No retractions, No use of accessory muscles and clear to auscultation bilaterally AUSCULTATION: clear to auscultation bilaterally Cardio: COMMON NORMALS: regular rate, regular rhythm and No murmurs present (Cardio) RATE: regular rate RHYTHM: regular rhythm GI: COMMON NORMALS: Normal to inspection, nondistended, normoactive bowel sounds present, Soft to palpation, non-tender and no masses PALPATION: Yes Soft to palpation Extremity: COMMON NORMALS: full ROM NARRATIVE EXTREMITY EXAM: Swelling to right lower leg Neuro: COMMON NORMALS: patient oriented x3, moves all extremities and no focal motor deficits Psych: COMMON NORMALS: mental status grossly normal, Normal thought process present and cooperative THOUGHT PROCESS: Normal thought process present Skin: COMMON NORMALS: no rashes or lesions noted and no wounds GENERAL SKIN EXAM: no rashes or lesions noted Course 2 Vital Signs: Vital signs: Vital Signs Temperature 99.2 F 11/13/21 18:28 Pulse Rate 81 11/13/21 21:45 Respiratory Rate 21 H 11/13/21 21:45 Blood Pressure 167/85 11/13/21 21:45 Pulse Oximetry 94 11/13/21 21:45 [facility] - General Adult Medical Decision Making Patient presents here with some slight leg swelling from his surgery. He had a D-dimer drawn by his PCP and sent here to rule out DVT or PE they are both negative he is well-appearing here he is follow-up with his surgeon next week no signs of infection he is to follow-up and return if worsening. Lab Data : 11/13/21 20:15 11/13/21 20:15 Radiology Impressions Chest CTA 11/13/21 18:54 IMPRESSION: No acute findings. Venous Duplex 11/13/21 20:02 IMPRESSION: No evidence of right lower extremity deep vein thrombosis. Laboratory Results WBC 9.5 10^3/uL (4.0-10.0) 11/13/21 20:15 RBC 3.99 10^6/uL (4.1-5.3) L 11/13/21 20:15 Hgb 11.3 g/dL (11.7-16.6) L 11/13/21 20:15 Hct 36.4 % (42.0-52.0) L 11/13/21 20:15 MCV 91.2 fl (80-94) 11/13/21 20:15 MCH 28.3 pg (28.0-34.0) 11/13/21 20:15 MCHC 31.0 g/dL (30.0-36.0) 11/13/21 20:15 RDW 13.9 % (12.1-15.1) 11/13/21 20:15 Plt Count 376 10^3/cmm (130-400) 11/13/21 20:15 MPV 9.1 fL (7.4-10.4) 11/13/21 20:15 Neut % (Auto) 61.8 % 11/13/21 20:15 Lymph % (Auto) 21.6 % 11/13/21 20:15 [place] % (Auto) 9.1 % 11/13/21 20:15 Eos % (Auto) 6.2 % 11/13/21 20:15 Baso % (Auto) 0.9 % 11/13/21 20:15 Neut # (Auto) 5.88 10^3/uL (1.8-7.7) 11/13/21 20:15 Lymph # (Auto) 2.1 10^3/uL (0.8-4.8) 11/13/21 20:15 [place] # (Auto) 0.9 10^3/uL (0.2-0.9) 11/13/21 20:15 Eos # (Auto) 0.6 10^3/uL (0.0-0.8) 11/13/21 20:15 Baso # (Auto) 0.1 10^3/uL (0.0-0.1) 11/13/21 20:15 Nucleated RBC % (auto) 0 % 11/13/21 20:15 Nucleated RBCs # 0.0 /100WBC 11/13/21 20:15 Sodium 136 mmol/L (136-145) 11/13/21 20:15 Potassium 4.4 mmol/L (3.5-5.1) 11/13/21 20:15 Chloride 102 mmol/L (98-107) 11/13/21 20:15 Carbon Dioxide 22 mmol/L (22-29) 11/13/21 20:15 Anion Gap 16.4 (5-19) 11/13/21 20:15 BUN 11 mg/dL (8-23) 11/13/21 20:15 Creatinine 0.7 mg/dL (0.7-1.2) 11/13/21 20:15 GFR Calculation 113.2 mL/min (90-130) 11/13/21 20:15 Glucose 182 mg/dL (65-115) H 11/13/21 20:15 Calculated Osmolality 286 mOsm/kg (285-295) 11/13/21 20:15 Calcium 9.6 mg/dL (8.5-10.5) 11/13/21 20:15 Total Bilirubin 0.2 mg/dL (0.15-1.2) 11/13/21 20:15 AST 12 U/L (0-40) 11/13/21 20:15 ALT 13 U/L (0-41) 11/13/21 20:15 Alkaline Phosphatase 161 IU/L (40-130) H 11/13/21 20:15 Troponin T Baseline 18 ng/L (0-15) H 11/13/21 20:15 Total Protein 7.3 g/dL (6.6-8.7) 11/13/21 20:15 Albumin 4.2 g/dL (3.5-5.2) 11/13/21 20:15 Globulin 3.1 g/dL (1.3-4.6) 11/13/21 20:15 EKG Data EKG 1: I personally reviewed and interpreted this EKG as follows: EKG interpretation date: 11/13/21 EKG interpretation time: 20:26 Interpretation: nsr hr [address] or t wave abnormalities qrs 98 qtc 394 Computer generated interpretation: Chest CTA 11/13/21 18:54 IMPRESSION: No acute findings. Venous Duplex 11/13/21 20:02 IMPRESSION: No evidence of right lower extremity deep vein thrombosis. EKG 2: I personally reviewed and interpreted this EKG as follows: EKG interpretation date: 11/13/21 EKG interpretation time: 22:02 Interpretation: nsr hr [address] or t wave abnormalities qrs 85 qtcc 388 Computer generated interpretation: Chest CTA 11/13/21 18:54 IMPRESSION: No acute findings. Venous Duplex 11/13/21 20:02 IMPRESSION: No evidence of right lower extremity deep vein thrombosis. Discharge Plan Discharge Patient Disposition: Home Clinical Impression: Right leg swelling Condition: Stable Prescriptions: No Action modafinil 200 mg tablet 200 mg PO BID 0RF amlodipine 10 mg tablet 10 mg PO QDAY 0RF glipizide 5 mg tablet 5 mg PO BID 0RF hydrochlorothiazide 25 mg tablet 25 mg PO QAM 0RF isosorbide mononitrate 60 mg tablet extended release 24 hr 60 mg PO QAM 0RF metoprolol succinate 100 mg tablet extended release 24 hr 100 mg PO BID 0RF metformin 1,000 mg tablet 1,000 mg PO BID 0RF Hold Instructions: Resume on 01/27/21. May take glipizide 5 mg twice daily, if the fasting blood sugar is more than 130, while being off the Metformin ezetimibe 10 mg tablet 10 mg PO DAILY 30 Days Qty: 30 5RF prasugrel 10 mg tablet 10 mg PO DAILY Qty: 30 0RF nitroglycerin 0.4 mg tablet, sublingual 0.4 mg sublingual Q5M PRN (Reason: chest pain) 30 Days Qty: 30 3RF Rx Instructions: until response; do not exceed 3 doses per episode losartan 50 mg tablet 100 mg PO DAILY 30 Days Qty: 90 5RF fluoxetine 10 mg Tablet 10 mg PO DAILY 0RF oxycodone-acetaminophen 5-325 mg Tablet 1 tab PO Q8H PRN (Reason: Pain) 0RF tamsulosin 0.4 mg Capsule 0.8 mg PO DAILY 0RF bupropion HCl 75 mg Tablet 75 mg PO BID 0RF ropinirole 1 mg tablet 4 mg PO DAILY 0RF aspirin 81 mg Tablet,Delayed Release (Dr/Ec) 81 mg PO DAILY Qty: 30 0RF rosuvastatin [Crestor] 20 mg tablet 20 mg PO DAILY Qty: 30 0RF hydralazine 25 mg tablet 50 mg PO TID 30 Days Qty: 90 3RF Discharge Orders: Discharge ED (Routine); Ordered 11/13/21 Ordered By: Jesi Beaulieu Referrals: Vi Escalante MD [Primary Care Provider] - Discharge Diet: Advance as tolerated Discharge Activity: Resume usual activity Coding Level of Care Code ED [employer] Technology Education Teacher for Chg Fwd Exam Comprehensive
--- NOTE | 2021-11-13 20:54 | ECG_ITS ---
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 Measurements Intervals [place] Rate: 83 P: 56 NM: 197 QRS: 77 QRSD: 98 T: 92 QT: 355 QTc: 417 Interpretive Statements SINUS RHYTHM NONSPECIFIC T-WAVE ABNORMALITY INTERPRETATION BASED ON A DEFAULT AGE OF 40 YEARS Compared to ECG 01/31/2021 07:32:56 Myocardial infarct finding no longer present T-wave abnormality still present Electronically Signed On 11-14-2021 17:48:28 COMMERCIAL REAL ESTATE LENDER by Linda Jade M.D. [email or web address]
[2021-11-13 20:58] LABS: Troponin(5th) Baseline 18 ng/L (0-15)
[2021-11-13 21:01] LABS: Alanine Aminotransferase 13 U/L (0-41); Albumin Level 4.2 g/dL (3.5-5.2); Alkaline Phosphatase 161 IU/L (40-130); Anion Gap 16.4 (5-19); Aspartate Amino Transferase 12 U/L (0-40); Blood Urea Nitrogen 11 mg/dL (8-23); Calcium 9.6 mg/dL (8.5-10.5); Carbon Dioxide 22 mmol/L (22-29); Chloride 102 mmol/L (98-107); Globulin 3.1 g/dL (1.3-4.6); Glomerular Filtration Rate 113.2 mL/min (90-130); Glucose 182 mg/dL (65-115); Osmolality Calculated 286 mOsm/kg (285-295); Potassium 4.4 mmol/L (3.5-5.1); Sodium 136 mmol/L (136-145); Total Bilirubin 0.2 mg/dL (0.15-1.2); Total Protein 7.3 g/dL (6.6-8.7)
[2021-11-13] MEDS: iohexol 350 mg/mL 100 mL Btl IV ×2 (21:34)
[2021-11-13 21:45] VITALS: BP 167/85; PULSE 81; RESP 21; O2SAT 94
[2021-11-13 22:06] VITALS: BP 168/64; PULSE 88; RESP 17; O2SAT 98
== END 2021-11-13 22:07 | disposition home or self-care (01) ==
PROVIDERS: Emergency Provider Emergency Medicine; PCP Family Medicine
DX: M79.89 Other specified soft tissue disorders (principal); Z79.84 Long term (current) use of oral hypoglycemic drugs; Z79.82 Long term (current) use of aspirin; I11.0 Hypertensive heart disease with heart failure; I50.9 Heart failure, unspecified; E11.9 Type 2 diabetes mellitus without complications; E78.5 Hyperlipidemia, unspecified; Z87.891 Personal history of nicotine dependence
CPT/HCPCS: 71275; 80053; 84484; 85025; 93005; 93971; 99283; Q9967

== ENCOUNTER → 2022-02-19 09:56 | Outpatient (BNVA) | payer OTHER, SELFPAY | PROVIDERS: PCP Family Medicine; Visit Provider Internal Medicine Cardiovascular Disease | DX: I25.10 Atherosclerotic heart disease of native coronary artery without angina pectoris (principal); E11.65 Type 2 diabetes mellitus with hyperglycemia; J44.9 Chronic obstructive pulmonary disease, unspecified; E78.5 Hyperlipidemia, unspecified; R09.89 Other specified symptoms and signs involving the circulatory and respiratory systems; Z79.01 Long term (current) use of anticoagulants; I13.0 Hypertensive heart and chronic kidney disease with heart failure and stage 1 through stage 4 chronic kidney disease, or unspecified chronic kidney disease; E11.22 Type 2 diabetes mellitus with diabetic chronic kidney disease; N18.9 Chronic kidney disease, unspecified; I50.32 Chronic diastolic (congestive) heart failure; Z87.891 Personal history of nicotine dependence; Z79.84 Long term (current) use of oral hypoglycemic drugs | CPT/HCPCS: 36415; 80048; 80061; 83880; 84443; 85025; 99214 ==

== ENCOUNTER 2022-03-18 12:57 | Outpatient (CLI) | payer OTHER, SELFPAY ==
--- NOTE | 2022-03-18 13:30 | USCV_ITS ---
Donato Fernandesnie Age: 66 Gender: M : 1955 Exam Date: 03/18/2022 13:09 Ordering Phys: Linda Jade MD ([email or web address]) Technologist: RICHELLE [place] [facility] [place]: Bruit Risk Factors: Previous Vascular Surgery: Right Brachial BP: / Left Brachial BP: / Right Left Velocity (cm/s) Spectral Plaque Velocity (cm/s) Spectral Plaque Syst/Diast Broadening Syst/Diast Broadening 87.00/ 17.10 Prox CCA 127.40/ 21.80 78.50/ 19.40 Mid CCA 99.40 / 26.40 92.40/ 19.40 Distal CCA 86.00 / 22.10 77.70/ 14.80 Prox ICA 79.50 / 23.90 67.60/ 21.00 Mid ICA 72.00 / 26.50 77.70/ 21.80 Distal ICA 78.80 / 22.40 111.40 ECA 136.70 0.84 ICA/CCA 0.62 Antegrade Vertebral Antegrade 55.90/ 8.50 cm/s 42.10/ 13.80 cm/s Tri Subclavian Tri 156.9 145.9 0 0 FINDINGS Comparison: none available. No significant elevation of systolic or diastolic velocities. Waveforms are normal. Mild carotid artery atherosclerosis. Bilateral antegrade vertebral arteries. CONCLUSIONS Bilateral ICA stenosis less than 50%. Mild carotid atherosclerosis. Dr. Patti Lacey DO (Electronically Signed) Final Date: 18 March 2022 14:19 S
== END 2022-03-18 12:58 | disposition home or self-care (01) ==
PROVIDERS: PCP Family Medicine; Visit Provider Internal Medicine Cardiovascular Disease
DX: I77.9 Disorder of arteries and arterioles, unspecified (principal); R09.89 Other specified symptoms and signs involving the circulatory and respiratory systems
CPT/HCPCS: 93880

== ENCOUNTER → 2022-05-26 10:31 | Outpatient (BNVA) | payer OTHER, SELFPAY | PROVIDERS: PCP Family Medicine; Referring Provider Family Medicine; Visit Provider Podiatrist Foot & Ankle Surgery | DX: M21.41 Flat foot [pes planus] (acquired), right foot (principal); M21.42 Flat foot [pes planus] (acquired), left foot; Z79.84 Long term (current) use of oral hypoglycemic drugs; E11.8 Type 2 diabetes mellitus with unspecified complications; E11.42 Type 2 diabetes mellitus with diabetic polyneuropathy; L60.3 Nail dystrophy | CPT/HCPCS: 11721; 99204 ==

== ENCOUNTER → 2022-08-20 09:59 | Outpatient (BNVA) | payer OTHER, SELFPAY | PROVIDERS: PCP Family Medicine; Visit Provider Nurse Practitioner Family | DX: I25.10 Atherosclerotic heart disease of native coronary artery without angina pectoris (principal); E78.5 Hyperlipidemia, unspecified; I11.0 Hypertensive heart disease with heart failure; I50.32 Chronic diastolic (congestive) heart failure; Z87.891 Personal history of nicotine dependence | CPT/HCPCS: 99214 ==

== ENCOUNTER → 2022-10-07 12:47 | Outpatient (BNVA) | payer OTHER, SELFPAY | PROVIDERS: PCP Family Medicine; Visit Provider Podiatrist Foot & Ankle Surgery | DX: E11.42 Type 2 diabetes mellitus with diabetic polyneuropathy (principal); L60.3 Nail dystrophy; M21.41 Flat foot [pes planus] (acquired), right foot; M21.42 Flat foot [pes planus] (acquired), left foot; Z79.84 Long term (current) use of oral hypoglycemic drugs | CPT/HCPCS: 11721 ==

== ENCOUNTER → 2022-10-30 10:22 | Outpatient (BNVA) | payer OTHER, SELFPAY | PROVIDERS: PCP Family Medicine; Visit Provider Podiatrist Foot & Ankle Surgery | DX: L60.0 Ingrowing nail (principal) | CPT/HCPCS: 11750 ==

== ENCOUNTER → 2023-03-04 14:50 | Outpatient (BNVA) | payer OTHER, SELFPAY | PROVIDERS: PCP Family Medicine; Visit Provider Specialist | DX: I25.10 Atherosclerotic heart disease of native coronary artery without angina pectoris (principal); E78.5 Hyperlipidemia, unspecified; Z72.0 Tobacco use; I11.0 Hypertensive heart disease with heart failure; I50.9 Heart failure, unspecified | CPT/HCPCS: 99214 ==

== ENCOUNTER → 2024-03-14 12:13 | Outpatient (BNVA) | payer OTHER, SELFPAY | PROVIDERS: PCP Family Medicine; Referring Provider Family Medicine; Visit Provider Internal Medicine Cardiovascular Disease | DX: R06.02 Shortness of breath (principal) | CPT/HCPCS: 80048; 83880; 99214 ==

== ENCOUNTER → 2024-10-28 08:56 | Outpatient (BNVA) | payer OTHER, SELFPAY | PROVIDERS: PCP Family Medicine; Visit Provider Nurse Practitioner Family | DX: I11.0 Hypertensive heart disease with heart failure (principal); I50.32 Chronic diastolic (congestive) heart failure; I25.10 Atherosclerotic heart disease of native coronary artery without angina pectoris; E78.5 Hyperlipidemia, unspecified; G47.33 Obstructive sleep apnea (adult) (pediatric); E11.9 Type 2 diabetes mellitus without complications; J44.9 Chronic obstructive pulmonary disease, unspecified; I65.29 Occlusion and stenosis of unspecified carotid artery; Z79.84 Long term (current) use of oral hypoglycemic drugs; F17.210 Nicotine dependence, cigarettes, uncomplicated | CPT/HCPCS: 99214 ==

== ENCOUNTER → 2025-05-08 11:06 | Outpatient (BNVA) | payer OTHER, SELFPAY | PROVIDERS: PCP Family Medicine; Visit Provider Internal Medicine Cardiovascular Disease | DX: I25.10 Atherosclerotic heart disease of native coronary artery without angina pectoris (principal); I11.0 Hypertensive heart disease with heart failure; I50.9 Heart failure, unspecified; E78.5 Hyperlipidemia, unspecified; E11.9 Type 2 diabetes mellitus without complications; Z79.84 Long term (current) use of oral hypoglycemic drugs; F17.210 Nicotine dependence, cigarettes, uncomplicated; Z79.82 Long term (current) use of aspirin; Z95.5 Presence of coronary angioplasty implant and graft; R07.9 Chest pain, unspecified | CPT/HCPCS: 93005; 99214 ==